=== PATIENT | male | born 1940 | race American Indian/Alaskan Native ===

== ENCOUNTER 2017-01-01 08:56 | Outpatient (CLI) | payer BC ==
--- NOTE | 2017-01-01 10:25 | Ultrasound Report ---
ULTRASOUND SCROTAL INDICATION: Scrotal pain. COMPARISON: 03/13/2014. FINDINGS: Longitudinal and transverse grayscale and color flow sonographic evaluation of the scrotum and its contents demonstrates normal testicular contour and echotexture bilaterally without suspicious intrinsic lesions. Preserved bilateral blood flow. Right testicle estimated at 3.4 x 1.3 x 2.8 cm while the left testicle is 4.3 x 1.6 x 3 cm. Right epididymis approximately 1.3 x 0.9 cm, image 16. Approximately 0.9 x 0.5 cm right epididymal head complex hypoechoic focus with diffuse intrinsic echoes now noted, image 17, morphologically different since the prior exam. Right epididymal body/tail also somewhat heterogeneous with mild increased blood flow as on image 20. No significant right hydrocele. Small left hydrocele noted, smaller since the prior exam. Left epididymal head is approximately 1 x 0.7 cm on image 34 with a 0.4 cm small cyst/spermatocele, image 35. CONCLUSION: 1. Small left hydrocele, lesser since February 2014, as described. No evidence of testicular torsion. 2. Mild right epididymitis not excluded. 3. Bilateral epididymal head cysts, complex on the right. Thank you for the opportunity to participate in this patient's care.
== END 2017-01-01 08:57 | disposition home or self-care (01) ==
LOC: US 08:56
PROVIDERS: ATTEND Urology
DX: N50.3 Cyst of epididymis (principal); N43.3 Hydrocele, unspecified; N45.1 Epididymitis
CPT/HCPCS: 93975

== ENCOUNTER 2017-02-14 11:49 | Day surgery (SDC) | payer BC ==
[2017-02-08 09:52] LABS: Basophils % (Auto) 1.5 % (0.0-1.8); Eosinophils % (Auto) 2.8 % (0.0-4.3); Hematocrit 36.5 % (35.5-45.6); Hemoglobin 11.9 gm/dl (11.8-15.2); Mean Corpuscular HGB Conc 33 % (32-34); Mean Corpuscular Hemoglobin 27 pg (28-32); Mean Corpuscular Volume 83 fl (84-94); Platelet Count 267 K/mm3 (140-440); Red Cell Distribution Width 15.4 % (13.2-15.2); White Blood Count 3.9 K/mm3 (4.5-11.0)
[2017-02-08 10:00] LABS: INR 1.62 (0.87-1.13)
--- NOTE | 2017-02-08 10:10 | Anesthesia Consultation ---
Anesthesia Consult and Med Hx Date of service: 02/08/17 - Airway Anesthetic Teeth Evaluation: Good ROM Head & Neck: Adequate Mental/Hyoid Distance: Adequate Mallampati Class: Class I Intubation Access Assessment: Good - Pulmonary Exam CTA: Yes - Cardiac Exam Cardiac Exam: RRR - Pre-Operative Health Status ASA Pre-Surgery Classification: ASA4 Proposed Anesthetic Plan: General - Pre-Anesthesia Comment Pre-Anesthesia Comments: MARCUS (10/31): Dilated cardiomyopathy. EJ 20-25%. Cardiac clearance (01/29). Patient has a pacemaker, Afib, sick sinus syndrome, conduction disorder-mobitz type 1 and intermittent high grade AV block - Pulmonary Hx Smoking: No Hx Asthma: No Hx Respiratory Symptoms: No SOB: No COPD: No Hx Pneumonia: No Hx Sleep Apnea: No (JR PRE SCREEN HIGH RISK) - Cardiovascular System Hx Hypertension: Yes (X 20 YRS) Hx Coronary Artery Disease: Yes Hx Heart Attack/AMI: No Hx Angina: No Hx Percutaneous Transluminal Coronary Angioplasty (PTCA): No Hx Cardia Arrhythmia: Yes (sick sinus syndrome; mobitz type 1 and intermittent high grade AV block, ) Hx Pacemaker: Yes (2011: ) Hx Internal Defibrillator: No Hx Valvular Heart Disease: Yes (MILD TO MOD. PULM HTN AND MR) Hx Heart Murmur: No Hx Peripheral Vascular Disease: No - Central Nervous System Hx Neuromuscular Disorder: No Hx Seizures: No CVA: Yes (2014- NO DEFICIT) Hx Back Pain: Yes (hx back surgery) Hx Psychiatric Problems: No - Gastrointestinal Hx Ulcer: No Hx Gastroesophageal Reflux Disease: No - Endocrine Hx Renal Disease: No Hx Liver Disease: No Hx Non-Insulin Dependent Diabetes: No - Hematic Hx Anemia: Yes Hx Sickle Cell Disease: No - Other Systems Hx Cancer: Yes (Prostate CA s/p prostatectomy; no chemo/rad) Hx Obesity: No - Additional Comments Anesthesia Medical History Comments: NAC
[2017-02-08 10:20] LABS: Alanine Aminotransferase 13 units/L (7-56); Albumin 3.9 g/dL (3.9-5); Albumin/Globulin Ratio 1.1 %; Alkaline Phosphatase 25 units/L (35-129); Anion Gap 18 mmol/L; BUN/Creatinine Ratio 19.16; Bilirubin,Total 0.9 mg/dL (0.1-1.2); Blood Urea Nitrogen 23 mg/dL (9-20); Calcium 8.7 mg/dL (8.4-10.2); Carbon Dioxide 23 mmol/L (22-30); Chloride 105.3 mmol/L (98-107); Glucose 104 mg/dL (75-100); Sodium 143 mmol/L (137-145); Total Protein 7.6 g/dL (6.3-8.2)
[2017-02-08 10:22] LABS: Potassium 2.9 mmol/L (3.6-5.0)
[2017-02-08 10:27] LABS: Partial Thromboplastin Time 60.1 Sec. (24.2-36.6)
[~2017-02-14 11:49] MED LIST: ANCEF/STERILE WATER 2 GM/20 ML 2 GM/20 ML SYRINGE IV NR; NACL 0.9% 1000 ML 1,000 ML IV SCH; PEPCID PO NR
[2017-02-14] MEDS ORDERED: SUBLIMAZE IV PRN (13:19)
[2017-02-14] MEDS ORDERED: ZOFRAN IV PRN (13:19)
[2017-02-14 13:27] LABS: INR 1.18 (0.87-1.13)
[2017-02-14] MEDS ORDERED: NACL 0.9% 1000 ML 1,000 ML IV SCH (14:00)
--- NOTE | 2017-02-14 14:06 | Admit Criteria Form ---
Admission Criteria Documentation: AMBULATORY SURGERY EXCEPTION CRITERIA Ambulatory Surgery Exception Criteria ( Place 'X' for any and all applicable criteria): Surgery or procedure performed on ambulatory basis may require inpatient stay for[A] ANY ONE of the following(1)(2)(3)(4)(5)(6)(7)(8)(9): [X] I. A preoperative situation, condition, or finding that warrants inpatient stay as indicated by ANY ONE of the following: [] a) Inpatient care needed because of severity of a disease or condition rather than the surgery (eg, severe cardiac or respiratory disease, severe infection) (15) (16 ) (17) (18) [] b) Emergent procedure (eg, angioplasty for acute ischemia)(19) [] c) Complex surgical approach or situation as indicated by ANY ONE of the following(3): [] i) Open approach needed instead of usual endoscopic, transcatheter, or other less invasive procedure [] ii) Difficult approach because of previous operation [] iii) Airway monitoring required after open neck procedures(20)(21) [] iv) Large mass requiring unusually extensive dissection [] v) Additional complicating feature requiring inpatient care (eg, drain management)(22(23): [X] d) Major surgery in a pt with high anesthetic risk as indicated by ANY ONE of the following (2)(3)(5)(7)(8): [X] i) ASA risk class III or higher (severe systemic disease impairing function) [D] [] ii) Advanced age (eg, older than 85 years)(14)(24) [] iii) Symptomatic heart failure(25) [] iv) Symptomatic asthma or COPD(8)(21) [] v) Morbid obesity with hemodynamic or respiratory problems(20)( 21)(26)(27) [] vi) Obstructive sleep apnea(20)(21) [] vii) Former premature infants who are younger than 60 weeks [] viii) High risk for severe postoperative abnormalities (eg, severe postoperative hypocalcemia after parathyroidectomy for severe hyperparathyroidism)(27)( 28) [] ix) Unstable angina(25) [] e) Drug-related risk requiring inpatient stay as indicated by ANY ONE of the following(5)(10)(14)(32)(33) [] i) Procedure requires discontinuing drugs or other therapy (eg , antiarrhythmic medication, antiseizure medication), which necessitates inpatient observation or treatment.(18)(31) [] ii) Major surgery and high risk drug use as indicated by ANY ONE of the following: [] 1) Active abuse of cocaine or similar drug [] 2) Monoamine oxidase inhibitor use [] 3) Other drug identified as posing risk [] f) Inadequate outpatient care situation as indicated by ANY ONE of the following(5)(10)(14)(32)(33) [] i) Patient lives remote from medical facility and procedure has urgent complication potential, and temporary nearby residence cannot be arranged [] ii) Patient will have postprocedure incapacitation and inadequate assistance at home, or alternative level of care cannot be arranged. [] iii) Patient will have long general anesthesia or procedure side effect resolution time, and competent person to stay with patient on first postoperative night at home or alternative level of care cannot be arranged. []iv) Other inadequate outpatient situation that cannot be handled by other means [] II. A perioperative event, condition, or finding that warrants inpatient stay as indicated by ANY ONE of the following (1)(2)(3): [] a) Inadequate physiologic recovery: cardiovascular, respiratory, or hemodynamic status not normal or near preoperative baseline(18) [] b) Hemodynamic instability [] c) Patient not alert with near normal or baseline mental status [] d) Temperature not normal or as expected and not appropriate for outpatient treatment of condition [] e) Ambulatory or appropriate activity level status not yet achieved post procedure [E](34)(35)(36) [] f) Operative site not appropriate (eg, unexpected or excessive drainage or bleeding) [] g) Postoperative effects not resolved or adequately managed (eg, significant pain or vomiting not appropriate for outpatient or next level of care)(10)(12) [] h) Complicating features requiring inpatient care as indicated by ANY ONE of the following(37): [] i) Severe complications of procedure (eg, bowel injury, airway compromise, vascular injury,severe hemorrhage) [] ii) Extensive (eg, dissection far beyond usual scope of procedure ) or prolonged (eg, 120 minutes beyond usual) surgery needed requiring inpatient postoperative care [] iii) Conversion to an open or complex procedure that requires inpatient care (eg, open vs laparoscopic cholecystectomy, abdominal vs vaginal hysterectomy)(38) [] iv) Comorbid condition or test result identified during or post procedure that requires inpatient care (7) [] v) Malignant hyperthermia(30) [] vi) Other complicating feature requiring inpatient care(22)(23) Inpatient stay may be needed until ALL of the following are present (1)(2)(3)(4) (5)(6)(10)(14)(33)(40): []a) Physiologic recovery: cardiovascular, respiratory, and hemodynamic status normal or near preoperative baseline []b) Hemodynamic stability []c) Patient alert, with near normal or baseline mental status []d) Temperature appropriate: patient afebrile or temperature appropriate for outpt treatment of condition []e) Activity level appropriate: ambulatory or appropriate activity level post procedure []f) Operative site appropriate as indicated by ALL of the following: []i) Site dry or with expected drainage []ii) Any blood noted is as expected for procedure. []g) Postoperative effects resolved or managed as indicated by ALL of the following: []i) Pain management appropriate for outpatient (or next level of) care(10) []ii) Minimal nausea and vomiting: if present, successfully treated with oral medication(12) []iii) Headache, dizziness, or drowsiness (if present) are mild. []h) Voiding status acceptable as indicated by ANY ONE of the following: []i) Voiding spontaneously []ii) No voiding but instructions given for follow-up in 6 to 8 hours []iii) Urinary catheter in place, and instructions given for follow-up []i) Complicating features requiring inpatient care manageable at a lower level of care(37) []j) Comorbid conditions manageable at a lower level of care(37) The original [employer] content created by [employer] has been revised. The portions of the content which have been revised are identified through the use of italic text or in bold, and [facility] [email or web address] has neither reviewed nor approved the modified material. All other unmodified content is copyright [employer]. Please see references footnoted in the original [employer] edition 2016 Admission Criteria Met: Yes
[2017-02-14] MEDS ORDERED: DIPRIVAN 10 MG/ML IV ONE (14:46)
[2017-02-14] MEDS ORDERED: AMIDATE IV ONE (14:46)
[2017-02-14] MEDS ORDERED: XYLOCAINE MPF 2% ONE (14:48)
[2017-02-14] MEDS ORDERED: SUBLIMAZE ONE (14:48)
[2017-02-14] MEDS ORDERED: DECADRON ONE (15:08)
[2017-02-14] MEDS ORDERED: ZOFRAN ONE ×2 (15:09)
[2017-02-14] MEDS ORDERED: WATER FOR IRRIG STERILE IR ONE ×2 (15:14)
--- NOTE | 2017-02-14 15:47 | Short Stay Summary ---
Short Stay Documentation Date of service: 02/14/17 - History H&P: obtained from office - Allergies and Medications Current Medications: Allergies No Known Allergies Allergy (Verified 03/13/14 06:35) Home Medications Medication Instructions Recorded Confirmed Last Taken Type Ezetimibe [Zetia] 10 mg PO DAILY #30 tablet 09/26/15 02/14/17 02/13/17 09:00 Rx Aspirin EC [Aspirin Enteric Coated 81 mg PO QDAY 06/21/16 02/14/17 02/07/17 09: 00 History TAB] Carvedilol [Coreg] 25 mg PO BID 06/21/16 02/14/17 02/14/17 07:00 History Losartan [Cozaar] 100 mg PO DAILY 06/21/16 02/14/17 02/14/17 08:00 History Mirabegron [Myrbetriq] 50 mg PO QDAY 06/21/16 02/14/17 02/13/17 09:00 History Dabigatran [Pradaxa] 150 mg PO BID 02/05/17 02/14/17 02/11/17 09:00 History Hydrochlorothiazide [HCTZ] 25 mg PO QDAY 02/05/17 02/14/17 02/13/17 09:00 History Nitrofurantoin Macrocrysta(Nf) 100 mg PO DAILY 02/05/17 02/14/17 02/13/17 09:00 History [Macrodantin CAP] Active Medications Famotidine (Pepcid) 20 mg PO PREOP NR Stop: 02/14/17 23:59 Last Admin: 02/14/17 12:55 Dose: 20 mg Fentanyl (Sublimaze) 50 mcg IV Q5MIN PRN PRN Reason: Pain , Severe (7-10) Stop: 02/14/17 23:59 Cefazolin Sodium (Ancef/Sterile Water 2 Gm/20 Ml) 2 gm in 20 mls @ 80 mls/hr IV PREOP NR PRN Reason: Protocol Stop: 02/14/17 23:01 Sodium Chloride (Nacl 0.9% 1000 Ml) 1,000 mls @ 42 mls/hr IV DIRECT PAGE - Brief post op/procedure progress note Date of procedure: 02/14/17 Pre-op diagnosis: dysuria Post-op diagnosis: other (mild urethral stricture) Procedure: flex cysto, urethral dilation, urethrogram Anesthesia: TORSTEN Surgeon: DIANA MCKAY Estimated blood loss: minimal Pathology: none Condition: stable - Hospital course Hospital course: [facility] & art on chart - Disposition Condition at discharge: Stable Disposition: DISCHARGED TO HOME OR SELFCARE Short Stay Discharge Plan Follow up with: DAMIR RAMAN MD [Primary Care Provider] - 7 Days
[2017-02-14] MEDS ORDERED: NORCO 5/325 PO PRN (17:05)
[2017-02-14] MEDS ORDERED: APRESOLINE ONE (17:12)
[2017-02-14] MEDS ORDERED: APRESOLINE IV PRN (17:25)
[2017-02-14 18:40] VITALS: BP 150/75
--- NOTE | 2017-02-14 19:33 | Operative Report ---
PREOPERATIVE DIAGNOSIS: Dysuria. POSTOPERATIVE DIAGNOSES: Mild urethral stricture mid shaft and bladder neck. PROCEDURE: Cystoscopy, urethrogram, urethral dilation 14-Brazilian. SURGEON: Ayo Leary MD ANESTHESIA: General. ESTIMATED BLOOD LOSS: Minimal. FLUIDS: Crystalloid. COMPLICATIONS: No complications. INDICATIONS: This 76-year-old gentleman with a history of prostate cancer status post radical prostatectomy also had an artificial urinary sphincter placed had to be removed due to erosion. The cuff is still in place. The patient had done well, but he continued to have some dysuria. He presents now for endoscopic evaluation. DESCRIPTION OF PROCEDURE: The patient was taken to the operative suite, placed in a supine position. After adequate general anesthesia placed in a dorsal lithotomy position, prepped and draped in a sterile fashion. A cystourethroscopy was performed using a 16-Brazilian flexible ureteroscope was noted to have a stricture at the level of the cuff. No obvious expose cuff could be appreciated. 0.035 wire was placed dilation to 16-Brazilian with a balloon dilator. Flexible ureteroscopy and cystoscopy was performed. No stones, no tumors could be appreciated. He also had a small stricture at the bladder neck as well. No exposed components of the sphincter could be appreciated. His bladder was drained. Rectal exam was benign. He was extubated and taken to recovery room. [facility] [place] and follow up in the office. He can resume his blood thinners in two days. JOB# [id number] [facility]
--- NOTE | 2017-02-15 12:11 | Fluoroscopy Report ---
FLUOROSCOPY RETROGRADE URETHROGRAM History: Nocturia. Findings: 6 fluoroscopic images were captured during retrograde urethrogram by Dr. Leary. The images are limited but there appears to be a high-grade stricture in the mid urethra with mild dilatation of the proximal urethra. No extravasation is confidently identified. Please correlate with the procedural report by Dr. Leary. Impression: Urethral stricture.
== END 2017-02-14 18:25 | disposition home or self-care (01) ==
LOC: OR 11:49
PROVIDERS: ATTEND Urology
DX: N35.8 Other urethral stricture (principal); N32.0 Bladder-neck obstruction; I10 Essential (primary) hypertension; I25.10 Atherosclerotic heart disease of native coronary artery without angina pectoris; I27.2 Other secondary pulmonary hypertension; E78.5 Hyperlipidemia, unspecified; D64.9 Anemia, unspecified; Z95.0 Presence of cardiac pacemaker; Z85.46 Personal history of malignant neoplasm of prostate; Z90.79 Acquired absence of other genital organ(s); Z86.73 Personal history of transient ischemic attack (TIA), and cerebral infarction without residual deficits; Z72.89 Other problems related to lifestyle; Z79.01 Long term (current) use of anticoagulants; Z82.49 Family history of ischemic heart disease and other diseases of the circulatory system
CPT/HCPCS: 36415; 52281; 74450; 80053; 84132; 85025; 85610; 85730; A4217; C1726; C1769; J0360; J0690; J1100; J2405; J2704; J3010; J7030; Q9967

== ENCOUNTER 2017-04-16 09:42 | Outpatient (CLI) | payer BC | END 2017-04-16 09:43 | disposition home or self-care (01) | LOC: ECHO 09:42 | PROVIDERS: ATTEND Internal Medicine Cardiovascular Disease | DX: I08.3 Combined rheumatic disorders of mitral, aortic and tricuspid valves (principal); I42.0 Dilated cardiomyopathy; I27.2 Other secondary pulmonary hypertension; I48.91 Unspecified atrial fibrillation; I10 Essential (primary) hypertension; I25.10 Atherosclerotic heart disease of native coronary artery without angina pectoris; E78.00 Pure hypercholesterolemia, unspecified; D64.9 Anemia, unspecified; Z95.0 Presence of cardiac pacemaker | CPT/HCPCS: 93306 ==

== ENCOUNTER 2017-08-03 10:05 | Day surgery (SDC) | payer BC, MEDICARE ==
--- NOTE | 2017-08-02 10:13 | Anesthesia Consultation ---
Anesthesia Consult and Med Hx Date of service: 08/02/17 - Airway ROM Head & Neck: Adequate Mental/Hyoid Distance: Adequate Mallampati Class: Class II Intubation Access Assessment: Probably Good - Pulmonary Exam CTA: Yes - Cardiac Exam Cardiac Exam: RRR - Pre-Operative Health Status ASA Pre-Surgery Classification: ASA3 Proposed Anesthetic Plan: General - Pulmonary Hx Smoking: No Hx Respiratory Symptoms: No Hx Sleep Apnea: No (JR PRE SCREEN HIGH RISK) - Cardiovascular System Hx Hypertension: Yes (X 20 YRS, EF 20%) Hx Coronary Artery Disease: Yes (small vessel) Hx Cardia Arrhythmia: Yes (sick sinus syndrome; paroxysmal AFIB) Hx Pacemaker: Yes (2011: ) Hx Valvular Heart Disease: Yes (MILD TO MOD. PULM HTN AND MR) Hx Heart Murmur: No Hx Peripheral Vascular Disease: No - Central Nervous System Hx Neuromuscular Disorder: No CVA: Yes (2014- NO DEFICIT) Hx Back Pain: Yes Hx Psychiatric Problems: No - Gastrointestinal Hx Ulcer: No Hx Gastroesophageal Reflux Disease: No - Endocrine Hx Renal Disease: No Hx Liver Disease: No Hx Non-Insulin Dependent Diabetes: No - Hematic Hx Anemia: Yes - Other Systems Hx Cancer: Yes (Prostate CA s/p prostatectomy; no chemo/rad) Hx Obesity: No
[2017-08-02 10:19] LABS: Basophils % (Auto) 0.8 % (0.0-1.8); Hematocrit 37.1 % (35.5-45.6); Hemoglobin 12.2 gm/dl (11.8-15.2); Mean Corpuscular HGB Conc 33 % (32-34); Mean Corpuscular Hemoglobin 27 pg (28-32); Mean Corpuscular Volume 82 fl (84-94); Platelet Count 231 K/mm3 (140-440); Red Blood Count 4.55 M/mm3 (3.65-5.03); Red Cell Distribution Width 18.1 % (13.2-15.2); White Blood Count 5.4 K/mm3 (4.5-11.0)
[2017-08-02 10:29] LABS: INR 1.13 (0.87-1.13)
[2017-08-02 10:30] LABS: Partial Thromboplastin Time 34.3 Sec. (24.2-36.6)
[2017-08-02 10:36] LABS: Alanine Aminotransferase 13 units/L (7-56); Albumin 3.9 g/dL (3.9-5); Albumin/Globulin Ratio 1.1 %; Alkaline Phosphatase 24 units/L (35-129); Anion Gap 15 mmol/L; BUN/Creatinine Ratio 21; Blood Urea Nitrogen 19 mg/dL (9-20); Carbon Dioxide 27 mmol/L (22-30); Chloride 100.2 mmol/L (98-107); Glucose 114 mg/dL (75-100); Potassium 3.4 mmol/L (3.6-5.0); Sodium 139 mmol/L (137-145); Total Protein 7.4 g/dL (6.3-8.2)
[~2017-08-03 10:05] MED LIST changes: -ANCEF/STERILE WATER 2 GM/20 ML 2 GM/20 ML SYRINGE IV NR; +ANCEF/STERILE WATER 2 GM/20 ML IV NR; +GARAMYCIN/NS 80 MG/100 ML 100 ML IV SCH; +VERSED IV NR
[2017-08-03] MEDS ORDERED: NEOSPORIN GU IR ONE ×2 (10:58→12:40)
[2017-08-03] MEDS ORDERED: XYLOCAINE MPF 2% ONE (11:07)
[2017-08-03] MEDS ORDERED: DIPRIVAN 10 MG/ML IV ONE (11:07)
[2017-08-03] MEDS ORDERED: SUBLIMAZE ONE (11:07)
--- NOTE | 2017-08-03 11:49 | Anesthesia Day of Surgery ---
Anesthesia Day of Surgery - Day of Surgery Patient Examined: Yes Patient H&P Reviewed: Yes Patient is NPO: Yes Beta Blockers: Yes
[2017-08-03] MEDS ORDERED: AMIDATE IV ONE (12:07)
[2017-08-03] MEDS ORDERED: NEO SYNEPHRINE ONE (12:33)
[2017-08-03] MEDS ORDERED: NACL 0.9% 100 ML ONE (12:33)
[2017-08-03] MEDS ORDERED: ePHEDrine SULFATE ONE (12:45)
--- NOTE | 2017-08-03 13:08 | Short Stay Summary ---
Short Stay Documentation Date of service: 08/03/17 - History H&P: obtained from office - Allergies and Medications Current Medications: Allergies No Known Allergies Allergy (Verified 03/13/14 06:35) Home Medications Medication Instructions Recorded Confirmed Last Taken Type Ezetimibe [Zetia] 10 mg PO DAILY #30 tablet 09/26/15 08/03/17 08/02/17 18:00 Rx Aspirin EC [Aspirin Enteric Coated 81 mg PO QDAY 06/21/16 08/03/17 07/30/17 08: 00 History TAB] Carvedilol [Coreg] 25 mg PO BID 06/21/16 08/03/17 08/02/17 19:00 History Losartan [Cozaar] 100 mg PO DAILY 06/21/16 08/03/17 08/03/17 07:15 History Mirabegron [Myrbetriq] 50 mg PO QDAY 06/21/16 08/03/17 08/02/17 08:00 History Dabigatran [Pradaxa] 150 mg PO BID 02/05/17 08/03/17 07/30/17 08:00 History HCTZ 25 mg PO DAILY 08/03/17 08/03/17 08/02/17 08:00 History amLODIPine 5 mg PO DAILY 08/03/17 08/03/17 08/03/17 07:15 History Active Medications Cefazolin Sodium (Ancef/Sterile Water 2 Gm/20 Ml) 2 gm IV PREOP NR Stop: 08/03/17 23:59 Famotidine (Pepcid) 20 mg PO PREOP NR Stop: 08/03/17 21:00 Last Admin: 08/03/17 10:53 Dose: 20 mg Gentamicin Sulfate/Sodium Chloride (Garamycin/Ns 80 Mg/100 Ml) 100 mls @ 200 mls/hr IV PREOP PAGE Sodium Chloride (Nacl 0.9% 1000 Ml) 1,000 mls @ 100 mls/hr IV DIRECT PAGE Last Admin: 08/03/17 10:54 Dose: 100 mls/hr Midazolam HCl (Versed) 1 mg IV PREOP NR Stop: 08/03/17 21:00 Last Admin: 08/03/17 10:54 Dose: 1 mg - Brief post op/procedure progress note Date of procedure: 08/03/17 Pre-op diagnosis: aus erosion Post-op diagnosis: same Procedure: cysto urethral dilation, removal of foreign body (tubing) Anesthesia: GETA Surgeon: DIANA MCKAY Estimated blood loss: minimal Pathology: none Condition: stable - Hospital course Hospital course: cipro & norco - Disposition Condition at discharge: Stable Disposition: DC-01 TO HOME OR SELFCARE Short Stay Discharge Plan Follow up with: DAMIR RAMAN MD [Primary Care Provider] - 7 Days
[2017-08-03] MEDS ORDERED: ZOFRAN ONE (13:09)
[2017-08-03] MEDS ORDERED: DILAUDID IV PRN (13:54)
[2017-08-03] MEDS: DILAUDID IV PRN ×4 (14:00→14:34)
[2017-08-03 15:19] VITALS: BP 143/79
--- NOTE | 2017-08-03 17:07 | Operative Report ---
PREOPERATIVE DIAGNOSIS: Malfunctioning artificial urinary sphincter (erosion of tubing) POSTOPERATIVE DIAGNOSES: Malfunctioning artificial urinary sphincter (erosion of tubing), urethral stricture. PROCEDURE: Cystoscopy, urethral dilatation, Gan catheter placement. Scrotal exploration, removal of foreign body (tubing). SURGEON: Ayo Leary MD ANESTHESIA: General. ESTIMATED BLOOD LOSS: Minimal. FLUIDS: Crystalloid. COMPLICATIONS: No complications. INDICATIONS: This patient is a 77-year-old gentleman known to my service with prostate cancer, urinary incontinence, an artificial sphincter placed in the past, did well, but failed replacement was inserted and developed erosions, requiring removal. At this point, he has the reservoir and the cuff. The pump was removed due to the previous erosion. The tubing was capped. He was seen in the office earlier this day with exposed tubing and presents now for removal procedure. The patient understands may not remove all of the device due to dense scar tissue and possible worsening of symptoms. DESCRIPTION OF PROCEDURE: The patient was taken to the operative suite, placed in a supine position. After adequate general anesthesia, he was placed in a dorsal lithotomy position, prepped and draped in a sterile fashion. Flexible cystoscopy was performed. It was noted to have a small stricture, which was dilated with a 16-Finnish and Gan catheter was placed. Cystoscopy into the bladder, no tumors or stones were noted. Median rhaphe scrotal incision was made. The tubing was just to the left of the midline, attracted as proximal as possible, did not see any of the other components. However, there was some dense scar tissue, cut the tubing, no signs of infection was noted; however, anaerobic and aerobic culture was obtained. Copious irrigation was performed. Adequate hemostasis achieved, two layer closure was performed using a 2-0 Vicryl in the subcutaneous tissue in a running fashion, 2-0 Vicryl in interrupted fashion. Fluffs and scrotal support was placed. He was extubated and taken to recovery room. He will go home on [employer] and [place]. JOB# [id number] [facility]
== END 2017-08-03 15:40 | disposition home or self-care (01) ==
LOC: OR 10:05
PROVIDERS: ATTEND Urology
DX: T83.191A Other mechanical complication of implanted urinary sphincter, initial encounter (principal); Y83.8 Other surgical procedures as the cause of abnormal reaction of the patient, or of later complication, without mention of misadventure at the time of the procedure; N35.9 Urethral stricture, unspecified; I10 Essential (primary) hypertension; E78.5 Hyperlipidemia, unspecified; Z85.46 Personal history of malignant neoplasm of prostate; I25.10 Atherosclerotic heart disease of native coronary artery without angina pectoris
CPT/HCPCS: 36415; 52315; 80053; 85025; 85610; 85730; 87075; 87116; 88300; C1726; J0690; J1170; J1580; J2250; J2370; J2405; J2704; J3010; J7030; 88302

== ENCOUNTER 2018-05-31 19:22 | Emergency (ER) | payer MEDICARE ==
[2018-05-31 19:34] VITALS: BP 199/106
[2018-05-31 19:59] LABS: Basophils % (Auto) 0.7 % (0.0-1.8); Eosinophils % (Auto) 0.6 % (0.0-4.3); Hematocrit 39.4 % (35.5-45.6); Hemoglobin 12.7 gm/dl (11.8-15.2); Lymphocytes # (Auto) 1.3 K/mm3 (1.2-5.4); Lymphocytes % (Auto) 18.5 % (13.4-35.0); Mean Corpuscular HGB Conc 32 % (32-34); Mean Corpuscular Hemoglobin 26 pg (28-32); Mean Corpuscular Volume 81 fl (84-94); Monocytes # (Auto) 0.8 K/mm3 (0.0-0.8); Monocytes % (Auto) 11.3 % (0.0-7.3); Platelet Count 297 K/mm3 (140-440); Red Blood Count 4.86 M/mm3 (3.65-5.03); Red Cell Distribution Width 17.2 % (13.2-15.2)
[2018-05-31 20:08] LABS: INR 1.16 (0.87-1.13)
[2018-05-31 20:09] LABS: Partial Thromboplastin Time 30.1 Sec. (24.2-36.6)
[2018-05-31 20:26] LABS: Alanine Aminotransferase 26 units/L (7-56); Albumin 3.7 g/dL (3.9-5); BUN/Creatinine Ratio 14; Blood Urea Nitrogen 18 mg/dL (9-20); Calcium 9.2 mg/dL (8.4-10.2); Hemolysis Index 3
--- NOTE | 2018-05-31 20:41 | Emergency Department Report ---
ED General Adult HPI - General Chief complaint: Abdominal Pain Stated complaint: BLEEDING/BLADDER Time Seen by Provider: 05/31/18 20:26 Source: patient, RN notes reviewed, old records reviewed Mode of arrival: Ambulatory Limitations: No Limitations - History of Present Illness Initial comments: Primary care DrOlman: Radha Cardiology: Almita Casillas Urology: Anthony Leary Past medical history: Hypertension, high cholesterol, paroxysmal atrial fibrillation, currently on eliquis, bladder neck stricture This is a 77-year-old gentleman. The patient had a suprapubic Gan catheter placed earlier on today at around 4:00 PM for inability to urinate. This was done by his private aforementioned urology specialist. The patient reports that his urologist attempted to pass a Gan catheter through the urethra but was unsuccessful. The suprapubic Gan catheter was placed initially without complication. However, the patient indicates that he took his anticoagulants at this morning along with aspirin. He presents to the ER with bleeding around the suprapubic Gan catheter site. It is mildly crampy and does not radiate anywhere. He denies headache, neck pain, chest pain, upper abdominal pain, testicular pain. He denies fevers and chills as well as hematemesis, bright red blood per rectum. -: Gradual Location: pelvis Radiation: non-radiation Quality: aching Consistency: constant Improves with: none, other (bleeding decreases with gentle application of direct digital pressure) Worsens with: none Associated Symptoms: denies other symptoms - Related Data Home Medications Medication Instructions Recorded Confirmed Last Taken Aspirin EC [Aspirin Enteric Coated 81 mg PO QDAY 06/21/16 08/03/17 07/30/17 08: 00 TAB] Carvedilol [Coreg] 25 mg PO BID 06/21/16 08/03/17 08/02/17 19:00 Losartan [Cozaar] 100 mg PO DAILY 06/21/16 08/03/17 08/03/17 07:15 Mirabegron [Myrbetriq] 50 mg PO QDAY 06/21/16 08/03/17 08/02/17 08:00 Dabigatran [Pradaxa] 150 mg PO BID 02/05/17 08/03/17 07/30/17 08:00 HCTZ 25 mg PO DAILY 08/03/17 08/03/17 08/02/17 08:00 amLODIPine 5 mg PO DAILY 08/03/17 08/03/17 08/03/17 07:15 Previous Rx's Medication Instructions Recorded Last Taken Type Ezetimibe [Zetia] 10 mg PO DAILY #30 tablet 09/26/15 08/02/17 18:00 Rx Allergies Allergy/AdvReac Type Severity Reaction Status Date / Time No Known Allergies Allergy Verified 03/13/14 06:35 ED Review of Systems ROS: Stated complaint: BLEEDING/BLADDER Other details as noted in HPI Constitutional: denies: fever Eyes: denies: eye discharge ENT: denies: epistaxis Respiratory: denies: cough Cardiovascular: denies: chest pain Gastrointestinal: denies: vomiting Genitourinary: as per HPI Musculoskeletal: denies: back pain Skin: denies: lesions Neurological: denies: weakness Psychiatric: anxiety ED Past Medical Hx - Past Medical History Previous Medical History?: Yes Hx Hypertension: Yes (X 20 YRS, EF 20%) Hx Diabetes: No Hx Deep Vein Thrombosis: No Hx Liver Disease: No Hx Renal Disease: No Hx Arthritis: Yes Hx Kidney Stones: No Hx HIV: No Additional medical history: pacemaker - Surgical History Past Surgical History?: Yes Hx Pacemaker: Yes (2012: ) Additional Surgical History: prostate - Social History Smoking Status: Never Smoker Substance Use Type: None - Medications Home Medications: Home Medications Medication Instructions Recorded Confirmed Last Taken Type Ezetimibe [Zetia] 10 mg PO DAILY #30 tablet 09/26/15 08/03/17 08/02/17 18:00 Rx Aspirin EC [Aspirin Enteric Coated 81 mg PO QDAY 06/21/16 08/03/17 07/30/17 08: 00 History TAB] Carvedilol [Coreg] 25 mg PO BID 06/21/16 08/03/17 08/02/17 19:00 History Losartan [Cozaar] 100 mg PO DAILY 06/21/16 08/03/17 08/03/17 07:15 History Mirabegron [Myrbetriq] 50 mg PO QDAY 06/21/16 08/03/17 08/02/17 08:00 History Dabigatran [Pradaxa] 150 mg PO BID 02/05/17 08/03/17 07/30/17 08:00 History HCTZ 25 mg PO DAILY 08/03/17 08/03/17 08/02/17 08:00 History amLODIPine 5 mg PO DAILY 08/03/17 08/03/17 08/03/17 07:15 History ED Physical Exam - General Limitations: No Limitations General appearance: alert, in no apparent distress - Head Head exam: Present: atraumatic, normocephalic - Eye Eye exam: Present: normal appearance, EOMI. Absent: nystagmus - ENT ENT exam: Present: normal exam, normal orophraynx, mucous membranes moist, normal external ear exam - Neck Neck exam: Present: normal inspection, full ROM - Respiratory Respiratory exam: Present: normal lung sounds bilaterally. Absent: respiratory distress - Cardiovascular Cardiovascular Exam: Present: regular rate, normal rhythm, normal heart sounds. Absent: bradycardia, tachycardia, irregular rhythm, systolic murmur, diastolic murmur, rubs, gallop - GI/Abdominal GI/Abdominal exam: Present: soft, other (there is a suprapubic Gan catheter in place. It is draining bloody yellow urine. Around the suprapubic stoma, there is scant oozing noted.). Absent: distended, tenderness, guarding, rebound , rigid, pulsatile mass - Rectal Rectal exam: Present: deferred - Extremities Exam Extremities exam: Present: normal inspection, full ROM, other (2+ pulses noted in the bilateral upper, lower extremities. Compartments soft. No long bony tenderness. The pelvis is stable.). Absent: tenderness, pedal edema, calf tenderness - Back Exam Back exam: Present: normal inspection, full ROM. Absent: tenderness, CVA tenderness (R), paraspinal tenderness, vertebral tenderness - Neurological Exam Neurological exam: Present: alert, oriented X3, CN II-XII intact, other ( Extraocular movements intact. Tongue midline. No facial droop. Facial sensation intact to light touch in the V1, V2, V3 distribution bilaterally. 5 and 5 strength in 4 extremities.. Sensation is intact to light touch in 4 extremities.). Absent: motor sensory deficit - Psychiatric Psychiatric exam: Present: anxious - Skin Skin exam: Present: warm, dry, intact, normal color. Absent: rash ED Course Vital Signs 05/31/18 19:30 Temperature 97.8 F Pulse Rate 64 Respiratory 17 Rate Blood Pressure 199/106 O2 Sat by Pulse 100 Oximetry ED Medical Decision Making - Lab Data Result diagrams: 05/31/18 19:36 05/31/18 19:36 Vital Signs 05/31/18 19:30 Temperature 97.8 F Pulse Rate 64 Respiratory 17 Rate Blood Pressure 199/106 O2 Sat by Pulse 100 Oximetry Lab Results 05/31/18 05/31/18 05/31/18 Range/Units 19:36 19:36 19:40 WBC 6.9 (4.5-11.0) K/mm3 RBC 4.86 (3.65-5.03) M/mm3 Hgb 12.7 (11.8-15.2) gm/dl Hct 39.4 (35.5-45.6) % MCV 81 L (84-94) fl MCH 26 L (28-32) pg MCHC 32 (32-34) % RDW 17.2 H (13.2-15.2) % Plt Count 297 (140-440) K/mm3 Lymph % (Auto) 18.5 (13.4-35.0) % Elbert % (Auto) 11.3 H (0.0-7.3) % Eos % (Auto) 0.6 (0.0-4.3) % Baso % (Auto) 0.7 (0.0-1.8) % Lymph # 1.3 (1.2-5.4) K/mm3 Elbert # 0.8 (0.0-0.8) K/mm3 Eos # 0.0 (0.0-0.4) K/mm3 Baso # 0.0 (0.0-0.1) K/mm3 Seg Neutrophils % 68.9 (40.0-70.0) % Seg Neutrophils # 4.8 (1.8-7.7) K/mm3 PT 15.4 H (12.2-14.9) Sec. INR 1.16 H (0.87-1.13) APTT 30.1 (24.2-36.6) Sec. Sodium 135 L (137-145) mmol/L Potassium 3.7 (3.6-5.0) mmol/L Chloride 97.0 L (98-107) mmol/L Carbon Dioxide 24 (22-30) mmol/L Anion Gap 18 mmol/L BUN 18 (9-20) mg/dL Creatinine 1.3 (0.8-1.5) mg/dL Estimated GFR > 60 ml/min BUN/Creatinine Ratio 14 % Glucose 114 H (75-100) mg/dL Calcium 9.2 (8.4-10.2) mg/dL Total Bilirubin 0.70 (0.1-1.2) mg/dL AST 29 (5-40) units/L ALT 26 (7-56) units/L Alkaline Phosphatase 33 L (35-129) units/L Total Protein 7.3 (6.3-8.2) g/dL Albumin 3.7 L (3.9-5) g/dL Albumin/Globulin Ratio 1.0 % - Medical Decision Making Differential diagnosis, including but not limited to: Bleeding secondary to suprapubic Gan catheter placement and simultaneous anticoagulant use Assessment and plan: 77-year-old gentleman on systemic anticoagulation who is oozing from a suprapubic Gan catheter site. He is afebrile with reassuring vital signs with the exception of elevated blood pressure. The patient as per review of his old medical records and by his own recollection is on a few antihypertensive medications. He does not require emergent intervention for his asymptomatic elevated blood pressure. Please reference the [employer] clinical policy on hypertension that is not symptomatic. The patient is counseled to discontinue anticoagulant use for the next 48 hours. He understands that he is at low theoretical risk for CVA. This intervention is most likely to help decrease his oozing. We have come to this decision together through shared decision making. I have also discussed this with the covering primary urologist, Dr. Oropeza, who agrees with this plan of care. Patient will also apply gentle digital direct pressure to the site, and he is given gauzes and sponges to help keep himself clean. He indicates he is reliable to follow-up on Sunday for repeat checkup/evaluation. He is accompanied by family who are also amenable to this plan. Return precautions are reviewed. Critical care attestation.: If time is entered above; I have spent that time in minutes in the direct care of this critically ill patient, excluding procedure time. ED Disposition Clinical Impression: Encounter for care or replacement of suprapubic tube Anticoagulant adverse reaction Qualifiers: Encounter type: initial encounter Qualified Code(s): T45.515A - Adverse effect of anticoagulants, initial encounter Disposition: TO HOME OR SELFCARE Is pt being admited?: No Does the pt Need Aspirin: No Condition: Stable Instructions: Postoperative Bleeding (ED), Urinary Leg Bag (GEN), Gan Catheter Placement and Care (ED) Additional Instructions: Hold aspirin and eliquis for the next 48 hours. Follow up with your urology specialist first thing Sunday morning for repeat checkup/evaluation to have the suprapubic Gan catheter reevaluated. Scant bleeding would be expected given use of eliquis. Applied gentle direct digital pressure to the bleeding. Continue other outpatient medications. Return to the emergency room right away with new pain, worsened pain, migration of pain, bleeding increases in rate, vomiting blood, defecating blood, obstruction of the suprapubic Gan catheter. Referrals: PRIMARY CARE, [Primary Care Provider] - 3-5 Days DIANA LEARY MD [Staff Physician] - 3-5 Days JAIME CASILLAS MD [Staff Physician] - 3-5 Days
== END 2018-05-31 21:51 | disposition home or self-care (01) ==
LOC: ED 19:22
DX: T83.83XA Hemorrhage due to genitourinary prosthetic devices, implants and grafts, initial encounter (principal); T45.515A Adverse effect of anticoagulants, initial encounter; I10 Essential (primary) hypertension; M19.90 Unspecified osteoarthritis, unspecified site; Z95.0 Presence of cardiac pacemaker; X58.XXXA Exposure to other specified factors, initial encounter; Y93.89 Activity, other specified; Y92.89 Other specified places as the place of occurrence of the external cause; Y99.8 Other external cause status
CPT/HCPCS: 36415; 80053; 85025; 85610; 85730; 86850; 86900; 86901

== ENCOUNTER 2018-05-31 23:27 | Inpatient (IN) | payer MEDICARE ==
[2018-06-01] MEDS ORDERED: NACL 0.9% 1000 ML 1,000 ML IV ONE (00:03)
--- NOTE | 2018-06-01 00:04 | Emergency Department Report ---
ED General Adult HPI - General Chief complaint: Syncope Stated complaint: WEAKNESS Time Seen by Provider: 06/01/18 00:02 Source: patient, family, EMS (ems notes not available at time of chart dictation), RN notes reviewed, old records reviewed Mode of arrival: Wheelchair Limitations: No Limitations - History of Present Illness Initial comments: This is a 77-year-old gentleman. Please reference my note from earlier on today for more complete details regarding his past medical history. Patient was seen in the ER earlier on today for bleeding suprapubic catheter that was otherwise not symptomatic. Patient reports when he went home, he was driving a bath, and felt like he passed out. As per his family, he's passed out 3 times today. His family member reports that after his first episode of syncope, he was on all fours, dry heaving, and then rolled over onto his side. The patient has no recollection of this event. There was apparently no convulsive event. Family member also reports that patient was unresponsive in a wheelchair with EMS. The patient denies headache, neck pain, chest pain. He denies upper abdominal pain. He reports feeling a little bit sore and his suprapubic Gan catheter insertion site. He denies hematemesis, bright red blood per rectum, he reports that the oozing in his suprapubic Gan catheter hasn't really changed, and he denies DVT, pulmonary embolus risk factors. Apparently, since being discharged earlier on today, the patient has syncopized 3 times. -: Sudden Radiation: non-radiation Consistency: now resolved Improves with: none Worsens with: none Associated Symptoms: malaise, nausea/vomiting, syncope, weakness. denies: confusion, chest pain, cough, diaphoresis, fever/chills, headaches, loss of appetite, rash, seizure, shortness of breath - Related Data Home Medications Medication Instructions Recorded Confirmed Last Taken Aspirin EC [Aspirin Enteric Coated 81 mg PO QDAY 06/21/16 08/03/17 07/30/17 08: 00 TAB] Carvedilol [Coreg] 25 mg PO BID 06/21/16 08/03/17 08/02/17 19:00 Losartan [Cozaar] 100 mg PO DAILY 06/21/16 08/03/17 08/03/17 07:15 Mirabegron [Myrbetriq] 50 mg PO QDAY 06/21/16 08/03/17 08/02/17 08:00 Dabigatran [Pradaxa] 150 mg PO BID 02/05/17 08/03/17 07/30/17 08:00 HCTZ 25 mg PO DAILY 08/03/17 08/03/17 08/02/17 08:00 amLODIPine 5 mg PO DAILY 08/03/17 08/03/17 08/03/17 07:15 Previous Rx's Medication Instructions Recorded Last Taken Type Ezetimibe [Zetia] 10 mg PO DAILY #30 tablet 09/26/15 08/02/17 18:00 Rx Allergies Allergy/AdvReac Type Severity Reaction Status Date / Time No Known Allergies Allergy Verified 03/13/14 06:35 ED Review of Systems ROS: Stated complaint: WEAKNESS Other details as noted in HPI Comment: All other systems reviewed and negative ED Past Medical Hx - Past Medical History Previous Medical History?: Yes Hx Hypertension: Yes (X 20 YRS, EF 20%) Hx Diabetes: No Hx Deep Vein Thrombosis: No Hx Liver Disease: No Hx Renal Disease: No Hx Arthritis: Yes Hx Kidney Stones: No Hx HIV: No Additional medical history: pacemaker - Surgical History Past Surgical History?: Yes Hx Pacemaker: Yes (2012: ) Additional Surgical History: prostate - Social History Smoking Status: Never Smoker Substance Use Type: None - Medications Home Medications: Home Medications Medication Instructions Recorded Confirmed Last Taken Type Ezetimibe [Zetia] 10 mg PO DAILY #30 tablet 09/26/15 08/03/17 08/02/17 18:00 Rx Aspirin EC [Aspirin Enteric Coated 81 mg PO QDAY 06/21/16 08/03/17 07/30/17 08: 00 History TAB] Carvedilol [Coreg] 25 mg PO BID 06/21/16 08/03/17 08/02/17 19:00 History Losartan [Cozaar] 100 mg PO DAILY 06/21/16 08/03/17 08/03/17 07:15 History Mirabegron [Myrbetriq] 50 mg PO QDAY 06/21/16 08/03/17 08/02/17 08:00 History Dabigatran [Pradaxa] 150 mg PO BID 02/05/17 08/03/17 07/30/17 08:00 History HCTZ 25 mg PO DAILY 08/03/17 08/03/17 08/02/17 08:00 History amLODIPine 5 mg PO DAILY 08/03/17 08/03/17 08/03/17 07:15 History ED Physical Exam - General Limitations: No Limitations General appearance: alert, in no apparent distress - Head Head exam: Present: atraumatic, normocephalic - Eye Eye exam: Present: normal appearance, EOMI. Absent: nystagmus - ENT ENT exam: Present: normal exam, normal orophraynx, mucous membranes moist, normal external ear exam - Neck Neck exam: Present: normal inspection, full ROM - Respiratory Respiratory exam: Present: normal lung sounds bilaterally. Absent: respiratory distress - Cardiovascular Cardiovascular Exam: Present: regular rate, normal rhythm, normal heart sounds. Absent: bradycardia, tachycardia, irregular rhythm, systolic murmur, diastolic murmur, rubs, gallop - GI/Abdominal GI/Abdominal exam: Present: soft, other (suprapubic Gan catheter in place, continues to drain bloody urine). Absent: distended, tenderness, guarding, rebound, rigid, pulsatile mass - Rectal Rectal exam: Present: deferred - Extremities Exam Extremities exam: Present: normal inspection, full ROM, normal capillary refill , other (2+ pulses noted in the bilateral upper, lower extremities. Compartments soft. No long bony tenderness. The pelvis is stable.). Absent: tenderness, pedal edema, joint swelling, calf tenderness - Back Exam Back exam: Present: normal inspection, full ROM. Absent: tenderness, CVA tenderness (R), paraspinal tenderness, vertebral tenderness - Neurological Exam Neurological exam: Present: alert, oriented X3, CN II-XII intact, other ( Extraocular movements intact. Tongue midline. No facial droop. Facial sensation intact to light touch in the V1, V2, V3 distribution bilaterally. 5 and 5 strength in 4 extremities.. Sensation is intact to light touch in 4 extremities.). Absent: motor sensory deficit - Psychiatric Psychiatric exam: Present: anxious - Skin Skin exam: Present: warm, dry, intact, normal color. Absent: rash ED Course Vital Signs 05/31/18 06/01/18 23:55 01:49 Temperature 97.7 F Pulse Rate 65 64 Respiratory 18 Rate Blood Pressure 89/55 Blood Pressure 161/78 [Right] O2 Sat by Pulse 99 99 Oximetry - Reevaluation(s) Reevaluation #1: 06/01/18 03:22 CT scan of the brain is negative. CT scan of abdomen and pelvis demonstrates postsurgical changes, and nonspecific inflammatory changes in the large intestine. Does not have diarrhea, or other symptoms to suggest diverticulitis. No retroperitoneal hematoma is related to elevated lactic acid initially is appreciated, and this cleared with 1 L of IV fluid. Case is presented to the Hospital physician, Dr. Jennings, he accepted the patient to the medical service. ED Medical Decision Making - Lab Data Result diagrams: 06/01/18 00:27 06/01/18 00:27 Vital Signs - 24 hr 05/31/18 23:55 Temperature 97.7 F Pulse Rate 65 Blood Pressure 89/55 O2 Sat by Pulse 99 Oximetry - EKG Data 06/01/18 00:34 Ventricular paced rhythm, 64 bpm, left axis deviation, good capture, QTC prolonged, not a STEMI. Motion Artifact noted. - Radiology Data Radiology results: pending, report reviewed, image reviewed - Medical Decision Making Differential diagnosis, including but not limited to: Orthostasis, vasovagal event, retroperitoneal hematoma, acute coronary syndrome, structural cardiac disease Assessment and plan: 77-year-old male with 3 episodes of syncope. Patient had no complaint of dizziness or near syncope or chest pain during his previous ER visit earlier on today. He is clinically sober at this time, with a GCS of 15, and an NIH score of 0. Leading diagnosis is orthostasis versus vagal event. We will repeat basic laboratory studies, and obtain noncontrast CT scan of the brain, and abdomen/pelvis. He will be admitted to the hospital. He does not really have much the way of pain at this time, a consult has been ordered for his clinical quality rn and for urology. Critical care attestation.: If time is entered above; I have spent that time in minutes in the direct care of this critically ill patient, excluding procedure time. ED Disposition Clinical Impression: Syncope Disposition: 09 OP ADMIT IP TO THIS HOSP Is pt being admited?: Yes Condition: Good Instructions: Syncope (ED)
[2018-06-01 00:52] LABS: Hematocrit 35.5 % (35.5-45.6); Hemoglobin 11.6 gm/dl (11.8-15.2); Mean Corpuscular HGB Conc 33 % (32-34); Mean Corpuscular Hemoglobin 26 pg (28-32); Mean Corpuscular Volume 80 fl (84-94); Platelet Count 283 K/mm3 (140-440); Red Blood Count 4.42 M/mm3 (3.65-5.03); Red Cell Distribution Width 17.6 % (13.2-15.2)
[2018-06-01 01:05] LABS: INR 1.18 (0.87-1.13)
[2018-06-01 01:36] LABS: Alanine Aminotransferase 24 units/L (7-56); Albumin 3.8 g/dL (3.9-5); BUN/Creatinine Ratio 15; Blood Urea Nitrogen 19 mg/dL (9-20); Calcium 9.2 mg/dL (8.4-10.2); Hemolysis Index 22
--- NOTE | 2018-06-01 02:51 | Cat Scan Report ---
FINAL REPORT EXAM: CT HEAD/BRAIN WO CON HISTORY: syncope TECHNIQUE: Routine imaging was obtained of the brain without IV contrast. Comparison is made to the study of 09/29/2015. FINDINGS: There are remote strokes in the inferior aspect of the left cerebellar hemisphere as well as in the left frontal lobe. There is no evidence of acute stroke or hemorrhage. The ventricular system is appropriate in size and is symmetric. The visualized sinuses are clear. The mastoid air cells are well pneumatized. IMPRESSION: No evidence of acute stroke or hemorrhage. 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
--- NOTE | 2018-06-01 03:10 | Cat Scan Report ---
FINAL REPORT EXAM: CT ABDOMEN PELVIS WO CON HISTORY: abd pain TECHNIQUE: Routine axial imaging was obtained of the abdomen pelvis without oral or IV contrast. Sagittal and coronal reconstructions were reviewed. There are no previous studies available for comparison. FINDINGS: Images through lung bases reveal minimal dependent atelectasis in both lower lobes. The heart is moderately enlarged. The liver, gallbladder, pancreas, spleen, and adrenal glands appear normal. The kidneys reveal bilateral moderate hydronephrosis changes extending to the bladder. There are no stones in either ureter or within the kidneys. There is mild perinephric stranding bilaterally. There calcification of the abdominal aorta which is normal in caliber. The bowel loops are normal in caliber. There are multiple diverticula descending and sigmoid colon. At the junction of the descending sigmoid colon there localized reticulation of the mesentery. Mild diverticulitis cannot be excluded. The appendix appears normal. In the pelvis there is a percutaneous cystostomy catheter in good position in the bladder. There is marked thickening of the entire bladder wall. There are multiple surgical clips along the floor of the pelvis. There is reticulation of the soft tissues ventral to the bladder along with a small hematoma. Presumably this is postsurgical in origin. The skeletal structures otherwise reveal arthritic changes lumbar spine. IMPRESSION: Status post placement of percutaneous cystostomy catheter with postsurgical changes noted. Small hematoma ventral to the bladder noted. Multiple surgical clips along the floor pelvis. Bilateral moderate hydronephrosis without stone seen in either ureter. Diverticulosis in the descending and sigmoid colon. Localized reticulation of the mesentery at the junction of the descending and sigmoid colon. Mild diverticulitis cannot be excluded. Cardiomegaly. Normal appendix. Arthritic changes in the lumbar spine.
[2018-06-01] MEDS ORDERED: ZOFRAN IV PRN (04:01)
--- NOTE | 2018-06-01 04:57 | History and Physical Report ---
CHIEF COMPLAINT: Syncopal attack. OTHER COMPLAINT: Includes weakness and bleeding from the suprapubic catheter. HISTORY OF PRESENT ILLNESS: The patient is a 77-year-old male, who had suprapubic catheter placed yesterday for dysuria and the patient started bleeding from the suprapubic catheter at home and then passed out three times. There was no history of chest pain. No history of shortness of breath. No history of nausea or vomiting. The patient was brought back to the Emergency Room by EMS. The patient also denies history of upper abdominal pain and only feels discomfort at the site of the suprapubic area where catheter was inserted. There was no history of rectal bleeding or history of hematemesis or nausea, vomiting. PAST MEDICAL HISTORY: Pertinent for hypertension. Also, the patient has a past history of arthritis. PAST SURGICAL HISTORY: Pertinent for prostate surgery, pacemaker placement. FAMILY HISTORY: Noncontributory. SOCIAL HISTORY: The patient does not smoke, does not drink alcohol and does not use illicit drugs. MEDICATIONS: The patient is on Zetia 10 mg by mouth daily, enteric-coated aspirin 81 mg by mouth daily, Coreg 25 mg by mouth twice daily, Cozaar 100 mg by mouth daily, mirabegron 50 mg by mouth daily, Pradaxa 150 mg by mouth twice daily, hydrochlorothiazide 25 mg by mouth daily, amlodipine 5 mg by mouth daily. ALLERGIES: There are no known drug allergies. REVIEW OF SYSTEMS: CONSTITUTIONAL: There is no fever, no chills, no diaphoresis. HEENT: There is no headache or sore throat. CARDIOVASCULAR SYSTEM: There is no chest pain or orthopnea. RESPIRATORY SYSTEM: There is no shortness of breath or cough. GASTROINTESTINAL: There is a suprapubic pain with no nausea, vomiting, diarrhea or constipation. NEUROLOGICAL: There is no numbness, no dizziness, no altered mental status. MUSCULOSKELETAL: There is no joint pain or swelling. DERMATOLOGICAL: There is no skin rash or itching. GENITOURINARY: There is dysuria with bleeding in Gan catheter that was inserted recently with no flank pain. Rest of system review is normal. PHYSICAL EXAMINATION: GENERAL: At the time of exam, the patient was found to be alert, oriented x 3 and not in acute distress. VITAL SIGNS: Shows temperature of 97.7 degrees Fahrenheit, pulse rate of 65, blood pressure 89/55, O2 sat of 99% on room air. HEENT: Pupils to be equal, round, reactive to light and accommodating. Extraocular muscles are intact. NECK: Supple with no JVD or carotid bruit. CARDIOVASCULAR SYSTEM: Show normal first and second heart sounds with no gallops or murmurs. RESPIRATORY SYSTEM: Show good air entry on both sides of the lungs with no abnormal breath sounds. GASTROINTESTINAL SYSTEM: Show abdomen to be full, soft with suprapubic catheter in place. NEUROLOGIC: Show no focal deficits. MUSCULOSKELETAL SYSTEM: Show no joint swelling or tenderness. DERMATOLOGICAL SYSTEM: Show no skin rash. GENITOURINARY: Showing no costovertebral angle tenderness. PERTINENT LABORATORY AND IMAGING STUDIES: The patient has CBC done with low hemoglobin of 11.6, normal hematocrit, low MCV of 80. Coagulation studies show slight increase of INR of 1.18 with slight increase in prothrombin time of 15.7. The patient's chemistry show low chloride level of 97.5, elevated alkaline phosphatase of 31 and slightly decreased albumin level of 3.8. IMAGING STUDIES: The patient has CT of the abdomen and pelvis done that shows evidence of placement of percutaneous cystostomy catheter with post-surgical changes noted according to the radiologist. There was small hematoma ventral to the bladder that was also noted. The patient said there is diverticulosis and then went forward to say that my diverticulitis cannot be excluded. There is finding of cardiomegaly, normal appendix and arthritic changes in the lumbar spine. 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 DIAGNOSES: 1. Recurrent syncopal attack. 2. Hematuria. 3. Hydronephrosis. 4. Diverticulitis. PLAN: 1. The patient will be admitted to telemetry. 2. The patient will have echocardiogram done in the morning and will have cardiac enzymes involving troponin, total CK and CK-MB checked q. 6 hours x 2 more levels to check for syncopal attack. 3. The patient will continue Urology consult with Dr. Leary ordered by the Emergency Room physician as well as Cardiology consult with Dr. Casillas ordered by the Emergency Room physician. 4. The patient will be on Tylenol 650 mg by mouth every 4 hours for fever and headache and will be on IV morphine 2 mg every 3 hours as needed for pain. 5. The patient will be on IV Zosyn 3.375 grams q. 8 hours and IV metronidazole 500 mg q. 8 hours for the treatment of diverticulitis. 6. The patient will be on IV Zofran 4 mg every 8 hours as needed for nausea and vomiting and will be on his home medication as shown in the medication reconciliation section. 7. The patient will have blood culture done before starting of the antibiotics. 8. The patient's diet will be 2 g sodium diet. JOB# [id number] OCN/TINO MTDD
[2018-06-01] MEDS: FLAGYL 500 MG/100 ML 500 MG/100 ML BAG IV SCH ×3 (06:19→22:43)
[2018-06-01] MEDS: MORPHINE IV PRN (06:36)
[2018-06-01 06:57] LABS: Hematocrit 32.3 % (35.5-45.6); Hemoglobin 10.7 gm/dl (11.8-15.2)
[2018-06-01 07:15] LABS: Creatine Kinase MB 3.7 ng/mL (0.0-4.0)
[2018-06-01] MEDS: ZOSYN/NS 3.375GM/50ML 3.375 GM/50 ML BAG IV SCH ×3 (07:27→22:42)
[2018-06-01] MEDS ORDERED: NON-FORMULARY (Amlodipine 5 MG) PO SCH (10:00)
[2018-06-01] MEDS ORDERED: ZETIA PO SCH (10:00)
[2018-06-01] MEDS ORDERED: NON-FORMULARY (Mirabegron [Myrbetriq] 50 MG) PO SCH (10:00)
[2018-06-01] MEDS ORDERED: COREG PO SCH (10:00)
[2018-06-01] MEDS ORDERED: NON-FORMULARY (Losartan [Cozaar] 100 MG) PO SCH (10:00)
[2018-06-01] MEDS ORDERED: NON-FORMULARY (Hctz 25 MG) PO SCH (10:00)
[2018-06-01] MEDS: COREG PO SCH ×2 (10:18→22:43)
[2018-06-01] MEDS: HCTZ PO SCH (10:28)
[2018-06-01] MEDS: COZAAR PO SCH (10:28)
[2018-06-01] MEDS: NORVASC PO SCH (10:29)
--- NOTE | 2018-06-01 11:44 | Consultation ---
History of Present Illness Consult date: 06/01/18 Consult reason: syncope History of present illness: 77-year-old man admitted following 3 episodes of reported brief syncope which occurred at home. His syncopal episodes followed an emergency room visit for bleeding associated with an indwelling suprapubic catheter. Following manipulation of the suprapubic and discharge home, he returned several hours later with syncope. The patient has been extensive history of coronary disease, predominantly nonischemic cardiomyopathy, and has an indwelling cardiac defibrillator. Most recent cardiac catheterization a year and a half ago described small vessel disease of the circumflex and right coronary artery recommended for medical therapy, with a left ventricular ejection fraction 30%. The severity of the cardiomyopathy appeared disproportionate to the degree of coronary artery disease. He subsequently had cardiac defibrillator implanted. His most recent defibrillator interrogation was 6 months ago. Last year, a repeat echocardiogram documented persistent cardiomyopathy with left ventricular ejection fraction 20-25%. With regards to the current episode, the patient's syncope was nonexertional, not associated with chest pain, shortness of breath or palpitations. He did not experience a defibrillator discharge. He is currently on the telemetry floor, comfortable, awake and alert, asymptomatic looks and feels well. ECG on presentation a ventricular paced rhythm. Past History Past Medical History: CAD, heart failure Medications and Allergies Allergies Allergy/AdvReac Type Severity Reaction Status Date / Time No Known Allergies Allergy Verified 03/13/14 06:35 Home Medications Medication Instructions Recorded Confirmed Last Taken Type Ezetimibe [Zetia] 10 mg PO DAILY #30 tablet 09/26/15 08/03/17 08/02/17 18:00 Rx Aspirin EC [Aspirin Enteric Coated 81 mg PO QDAY 06/21/16 08/03/17 07/30/17 08: 00 History TAB] Carvedilol [Coreg] 25 mg PO BID 06/21/16 08/03/17 08/02/17 19:00 History Losartan [Cozaar] 100 mg PO DAILY 06/21/16 08/03/17 08/03/17 07:15 History Mirabegron [Myrbetriq] 50 mg PO QDAY 06/21/16 08/03/17 08/02/17 08:00 History Dabigatran [Pradaxa] 150 mg PO BID 02/05/17 08/03/17 07/30/17 08:00 History HCTZ 25 mg PO DAILY 08/03/17 08/03/17 08/02/17 08:00 History amLODIPine 5 mg PO DAILY 08/03/17 08/03/17 08/03/17 07:15 History Active Meds: Active Medications Acetaminophen (Tylenol) 650 mg PO Q4H PRN PRN Reason: Fever >101 Amlodipine Besylate (Norvasc) 5 mg PO DAILY [facility] Last Admin: 06/01/18 10:29 Dose: Not Given Carvedilol (Coreg) 25 mg PO BID [facility] Last Admin: 06/01/18 10:18 Dose: 25 mg Ezetimibe (Zetia) 10 mg PO QHS [facility] Hydrochlorothiazide (Hctz) 25 mg PO DAILY [facility] Last Admin: 06/01/18 10:28 Dose: Not Given Metronidazole (Flagyl 500 Mg/100 Ml) 500 mg in 100 mls @ 100 mls/hr IV Q8HR [facility] ; Protocol Last Admin: 06/01/18 06:19 Dose: 100 mls/hr Piperacillin Sod/Tazobactam Sod (Zosyn/Ns 3.375gm/50ml) 3.375 gm in 50 mls @ 100 mls/hr IV Q8HR [facility]; Protocol Last Admin: 06/01/18 07:27 Dose: 100 mls/hr Losartan Potassium (Cozaar) 100 mg PO DAILY [facility] Last Admin: 06/01/18 10:28 Dose: Not Given Miscellaneous Medication (Mirabegron [Myrbetriq]) 50 mg PO QDAY [facility] Morphine Sulfate (Morphine) 2 mg IV Q3H PRN PRN Reason: Pain, Moderate (4-6) Last Admin: 06/01/18 06:36 Dose: 2 mg Ondansetron HCl (Zofran) 4 mg IV Q8H PRN PRN Reason: Nausea And Vomiting Review of Systems Cardiovascular: syncope, no chest pain, no orthopnea, no palpitations, no rapid/ irregular heart beat, no edema, no lightheadedness, no shortness of breath Physical Examination Vital Signs Temp Pulse Resp BP Pulse Ox 97.7 F 64 14 89/55 100 05/31/18 23:43 05/31/18 23:43 05/31/18 23:43 05/31/18 23:43 05/31/18 23:43 General appearance: no acute distress HEENT: Positive: PERRL Neck: Positive: neck supple Cardiac: Positive: Reg Rate and Rhythm Lungs: Positive: Decreased Breath Sounds Neuro: Positive: Grossly Intact Abdomen: Positive: Soft Male genitourinary: Positive: deferred Skin: Positive: Clear Extremities: Absent: edema Results 06/01/18 06:07 06/01/18 00:27 Cardiac Enzymes 06/01/18 06/01/18 Range/Units 00:27 06:07 AST 28 (5-40) units/L CK-MB (CK-2) 3.7 (0.0-4.0) ng/mL Coagulation 06/01/18 Range/Units 00:27 PT 15.7 H (12.2-14.9) Sec. INR 1.18 H (0.87-1.13) CBC 06/01/18 06/01/18 Range/Units 00:27 06:07 WBC 8.3 (4.5-11.0) K/mm3 RBC 4.42 (3.65-5.03) M/mm3 Hgb 11.6 L 10.7 L (11.8-15.2) gm/dl Hct 35.5 32.3 L (35.5-45.6) % Plt Count 283 (140-440) K/mm3 Comprehensive Metabolic Panel 06/01/18 Range/Units 00:27 Sodium 137 (137-145) mmol/L Potassium 4.0 (3.6-5.0) mmol/L Chloride 97.5 L (98-107) mmol/L Carbon Dioxide 23 (22-30) mmol/L BUN 19 (9-20) mg/dL Creatinine 1.3 (0.8-1.5) mg/dL Glucose 146 H (75-100) mg/dL Calcium 9.2 (8.4-10.2) mg/dL AST 28 (5-40) units/L ALT 24 (7-56) units/L Alkaline Phosphatase 31 L (35-129) units/L Total Protein 6.8 (6.3-8.2) g/dL Albumin 3.8 L (3.9-5) g/dL EKG interpretations Pacemaker: ventricular pacing w/capt Assessment and Plan - Patient Problems (1) Syncope Current Visit: Yes Status: Acute Plan to address problem: Syncope followed manipulation of the patient's suprapubic catheter, and was associated with nausea and dry heaves, suggesting a likely vasovagal reaction. We will recommend ICD interrogation to rule out a cardiac tachycardia or bradycardia arrhythmia that might have contributed to syncope, otherwise no further cardiac intervention is warranted. The patient's ICD is believed to be a [employer] device.
[2018-06-01 12:56] LABS: Hematocrit 29.6 % (35.5-45.6); Hemoglobin 9.7 gm/dl (11.8-15.2)
[2018-06-01 13:02] LABS: Creatine Kinase MB 3.1 ng/mL (0.0-4.0)
--- NOTE | 2018-06-01 13:20 | Event Note ---
Date: 06/01/18 Patient was seen and evaluated this morning, patient was hemodynamically stable , bleeding from the super pubic catheter stopped. No episode of syncope after admission. Cardiology consult appreciated. Continue management per H&P.
[2018-06-01 18:13] LABS: Hematocrit 31.2 % (35.5-45.6); Hemoglobin 10.1 gm/dl (11.8-15.2)
[2018-06-01] MEDS: ZETIA PO SCH (22:44)
[2018-06-02] MEDS: MORPHINE IV PRN (00:09)
[2018-06-02] MEDS: FLAGYL 500 MG/100 ML 500 MG/100 ML BAG IV SCH ×3 (06:42→22:06)
[2018-06-02] MEDS: ZOSYN/NS 3.375GM/50ML 3.375 GM/50 ML BAG IV SCH ×3 (06:42→22:05)
[2018-06-02 07:07] LABS: Hematocrit 32.7 % (35.5-45.6); Hemoglobin 10.2 gm/dl (11.8-15.2); Mean Corpuscular HGB Conc 31 % (32-34); Mean Corpuscular Hemoglobin 26 pg (28-32); Mean Corpuscular Volume 84 fl (84-94); Platelet Count 222 K/mm3 (140-440); Red Blood Count 3.92 M/mm3 (3.65-5.03); Red Cell Distribution Width 18.3 % (13.2-15.2)
[2018-06-02 07:49] LABS: Anisocytosis 1+; Basophils % (Manual) 0 % (0.0-1.8); Eosinophils % (Manual) 0 % (0.0-4.3); Hypochromasia 1+; Ovalocytes Few; Schistocytes Rare; Total Cells Counted 100
--- NOTE | 2018-06-02 08:06 | Consultation ---
Past History Past Medical History: CAD, heart failure Medications and Allergies Allergies Allergy/AdvReac Type Severity Reaction Status Date / Time No Known Allergies Allergy Verified 03/13/14 06:35 Home Medications Medication Instructions Recorded Confirmed Last Taken Type Ezetimibe [Zetia] 10 mg PO DAILY #30 tablet 09/26/15 06/02/18 08/02/17 18:00 Rx Aspirin EC [Aspirin Enteric Coated 81 mg PO QDAY 06/21/16 06/02/18 07/30/17 08: 00 History TAB] Carvedilol [Coreg] 25 mg PO BID 06/21/16 06/02/18 08/02/17 19:00 History Losartan [Cozaar] 100 mg PO DAILY 06/21/16 06/02/18 08/03/17 07:15 History Mirabegron [Myrbetriq] 50 mg PO QDAY 06/21/16 06/02/18 08/02/17 08:00 History Dabigatran [Pradaxa] 150 mg PO BID 02/05/17 06/02/18 07/30/17 08:00 History HCTZ 25 mg PO DAILY 08/03/17 06/02/18 08/02/17 08:00 History amLODIPine 5 mg PO DAILY 08/03/17 06/02/18 08/03/17 07:15 History Active Meds: Active Medications Acetaminophen (Tylenol) 650 mg PO Q4H PRN PRN Reason: Fever >101 Amlodipine Besylate (Norvasc) 5 mg PO DAILY [facility] Last Admin: 06/01/18 10:29 Dose: Not Given Carvedilol (Coreg) 25 mg PO BID [facility] Last Admin: 06/01/18 22:43 Dose: 25 mg Ezetimibe (Zetia) 10 mg PO QHS [facility] Last Admin: 06/01/18 22:44 Dose: 10 mg Hydrochlorothiazide (Hctz) 25 mg PO DAILY [facility] Last Admin: 06/01/18 10:28 Dose: Not Given Metronidazole (Flagyl 500 Mg/100 Ml) 500 mg in 100 mls @ 100 mls/hr IV Q8HR [facility] ; Protocol Last Admin: 06/02/18 06:42 Dose: 100 mls/hr Piperacillin Sod/Tazobactam Sod (Zosyn/Ns 3.375gm/50ml) 3.375 gm in 50 mls @ 100 mls/hr IV Q8HR [facility]; Protocol Last Admin: 06/02/18 06:42 Dose: 100 mls/hr Losartan Potassium (Cozaar) 100 mg PO DAILY [facility] Last Admin: 06/01/18 10:28 Dose: Not Given Miscellaneous Medication (Mirabegron [Myrbetriq]) 50 mg PO QDAY [facility] Morphine Sulfate (Morphine) 2 mg IV Q3H PRN PRN Reason: Pain, Moderate (4-6) Last Admin: 06/02/18 00:09 Dose: 2 mg Ondansetron HCl (Zofran) 4 mg IV Q8H PRN PRN Reason: Nausea And Vomiting Exam - Constitutional Vitals: Temp Pulse Resp BP Pulse Ox 97.9 F 64 20 141/74 96 06/02/18 07:56 06/02/18 07:56 06/02/18 07:56 06/02/18 07:56 06/02/18 07:56 Results - Labs CBC & Chem 7: 06/02/18 04:48 06/01/18 00:27 Labs: Abnormal lab results 06/01/18 06/01/18 06/02/18 Range/Units 12:12 17:31 04:48 Hgb 9.7 L 10.1 L 10.2 L (11.8-15.2) gm/dl Hct 29.6 L 31.2 L 32.7 L (35.5-45.6) % MCH 26 L (28-32) pg MCHC 31 L (32-34) % RDW 18.3 H (13.2-15.2) % Seg Neuts % (Manual) 90.0 H (40.0-70.0) % Lymphocytes % (Manual) 8.0 L (13.4-35.0) % Lymphocytes # (Manual) 0.6 L (1.2-5.4) K/mm3 Assessment and Plan PROST CA - s/p RRP 2000 UR INCONT - h/o AUS x2, sling UR RET - s/p 05/31 office SPT GROSS HEMATURIA SPT SITE BLEEDING BLADDER SPASMS USD - SPT irrigated - stop blood thinners - pradaxa, asa - pt w/ c/o intermit obst cath monitor for intermit clot obst vs spasms - antichoninergic - Oxybutynin 5mg tid - rest - h/h stable - plan outpt vs inpt cysto, tx stx
[2018-06-02] MEDS ORDERED: MILK OF MAGNESIA PO PRN (08:17)
[2018-06-02] MEDS ORDERED: NACL 0.9% IR ONE (09:17)
[2018-06-02] MEDS: HCTZ PO SCH (10:51)
[2018-06-02] MEDS: COZAAR PO SCH (10:51)
[2018-06-02] MEDS: COREG PO SCH ×2 (10:52→22:06)
[2018-06-02] MEDS: NORVASC PO SCH (10:52)
--- NOTE | 2018-06-02 11:09 | Progress Note ---
Assessment and Plan Assessment and plan: 77 year old male with past medical history significant for CAD, on pacemaker, BPH presented to the emergency department for episodes of syncope. Patient had suprapubic catheter earlier in the morning of day of admission. patient had bleeding from the catheter and admitted to the floor. - Cardiology consulted - Echo was done and EF of 55-60% improved from 30% - We will do ICD interrogation BPH status post suprapubic catheter - the catheter was clogged overnight - Urology evaluated him and corrected, recommended to be evaluated by Dr. Leary in the morning Hypertension - Continue home medications Disposition - Continue inpatient care and possible discharge tomorrow after evaluated by Dr. Leary History Interval history: Patient was seen and evaluated this morning, patient had blockage of his urinary cath overnight, evaluated and fixed by urology this morning. Hospitalist Physical - Physical exam Narrative exam: Not in cardiopulmonary distress. The patient appeared well nourished and normally developed. Vital signs as documented. Head exam is unremarkable. No scleral icterus . Neck is without jugular venous distension, thyromegaly, or carotid bruits. Lungs are clear to auscultation. Cardiac exam reveals regular rate and Rhythm. First and second heart sounds normal. No murmurs, rubs or gallops. Abdominal exam reveals normal bowel sounds, no masses, no organomegaly and no aortic enlargement. Extremities are nonedematous and both femoral and pedal pulses are normal. suprapubic catheter in place, draining urine. CAR FRAMER: Alert and oriented 3. No focal weakness. - Constitutional Vitals: Temp Pulse Resp BP Pulse Ox 97.9 F 66 20 135/68 99 06/02/18 07:56 06/02/18 08:13 06/02/18 07:56 06/02/18 10:51 06/02/18 08:13 General appearance: Present: no acute distress Results - Labs CBC & Chem 7: 06/02/18 04:48 06/01/18 00:27 Labs: Laboratory Last Values WBC 7.0 K/mm3 (4.5-11.0) 06/02/18 04:48 RBC 3.92 M/mm3 (3.65-5.03) 06/02/18 04:48 Hgb 10.2 gm/dl (11.8-15.2) L 06/02/18 04:48 Hct 32.7 % (35.5-45.6) L 06/02/18 04:48 MCV 84 fl (84-94) 06/02/18 04:48 MCH 26 pg (28-32) L 06/02/18 04:48 MCHC 31 % (32-34) L 06/02/18 04:48 RDW 18.3 % (13.2-15.2) H 06/02/18 04:48 Plt Count 222 K/mm3 (140-440) 06/02/18 04:48 Add Manual Diff Complete 06/02/18 04:48 Total Counted 100 06/02/18 04:48 Seg Neuts % (Manual) 90.0 % (40.0-70.0) H 06/02/18 04:48 Band Neutrophils % 0 % 06/02/18 04:48 Lymphocytes % (Manual) 8.0 % (13.4-35.0) L 06/02/18 04:48 Reactive Lymphs % (Man) 0 % 06/02/18 04:48 Monocytes % (Manual) 2.0 % (0.0-7.3) 06/02/18 04:48 Eosinophils % (Manual) 0 % (0.0-4.3) 06/02/18 04:48 Basophils % (Manual) 0 % (0.0-1.8) 06/02/18 04:48 Metamyelocytes % 0 % 06/02/18 04:48 Myelocytes % 0 % 06/02/18 04:48 Promyelocytes % 0 % 06/02/18 04:48 Blast Cells % 0 % 06/02/18 04:48 Nucleated RBC % Not Reportable 06/02/18 04:48 Seg Neutrophils # Man 6.3 K/mm3 (1.8-7.7) 06/02/18 04:48 Band Neutrophils # 0.0 K/mm3 06/02/18 04:48 Lymphocytes # (Manual) 0.6 K/mm3 (1.2-5.4) L 06/02/18 04:48 Abs React Lymphs (Man) 0.0 K/mm3 06/02/18 04:48 Monocytes # (Manual) 0.1 K/mm3 (0.0-0.8) 06/02/18 04:48 Eosinophils # (Manual) 0.0 K/mm3 (0.0-0.4) 06/02/18 04:48 Basophils # (Manual) 0.0 K/mm3 (0.0-0.1) 06/02/18 04:48 Metamyelocytes # 0.0 K/mm3 06/02/18 04:48 Myelocytes # 0.0 K/mm3 06/02/18 04:48 Promyelocytes # 0.0 K/mm3 06/02/18 04:48 Blast Cells # 0.0 K/mm3 06/02/18 04:48 WBC Morphology Not Reportable 06/02/18 04:48 Hypersegmented Neuts Not Reportable 06/02/18 04:48 Hyposegmented Neuts Not Reportable 06/02/18 04:48 Hypogranular Neuts Not Reportable 06/02/18 04:48 Smudge Cells Not Reportable 06/02/18 04:48 Toxic Granulation Not Reportable 06/02/18 04:48 Toxic Vacuolation Not Reportable 06/02/18 04:48 Dohle Bodies Not Reportable 06/02/18 04:48 Pelger-Huet Anomaly Not Reportable 06/02/18 04:48 Juliana Rods Not Reportable 06/02/18 04:48 Platelet Estimate Appears normal 06/02/18 04:48 Clumped Platelets Not Reportable 06/02/18 04:48 Plt Clumps, EDTA Not Reportable 06/02/18 04:48 Large Platelets Not Reportable 06/02/18 04:48 Giant Platelets Not Reportable 06/02/18 04:48 Platelet Satelliting Not Reportable 06/02/18 04:48 Plt Morphology Comment Not Reportable 06/02/18 04:48 RBC Morphology Not Reportable 06/02/18 04:48 Dimorphic RBCs Not Reportable 06/02/18 04:48 Polychromasia Not Reportable 06/02/18 04:48 Hypochromasia 1+ 06/02/18 04:48 Poikilocytosis Not Reportable 06/02/18 04:48 Anisocytosis 1+ 06/02/18 04:48 Microcytosis Not Reportable 06/02/18 04:48 Macrocytosis Not Reportable 06/02/18 04:48 Spherocytes Not Reportable 06/02/18 04:48 Pappenheimer Bodies Not Reportable 06/02/18 04:48 Sickle Cells Not Reportable 06/02/18 04:48 Target Cells Not Reportable 06/02/18 04:48 Tear Drop Cells Not Reportable 06/02/18 04:48 Ovalocytes Few 06/02/18 04:48 Helmet Cells Not Reportable 06/02/18 04:48 [place] Bodies Not Reportable 06/02/18 04:48 [place] Rings Not Reportable 06/02/18 04:48 [place] Cells Not Reportable 06/02/18 04:48 Bite Cells Not Reportable 06/02/18 04:48 Crenated Cell Not Reportable 06/02/18 04:48 Elliptocytes Not Reportable 06/02/18 04:48 Acanthocytes (Spur) Not Reportable 06/02/18 04:48 Rouleaux Not Reportable 06/02/18 04:48 Hemoglobin C Crystals Not Reportable 06/02/18 04:48 Schistocytes Rare 06/02/18 04:48 Malaria parasites Not Reportable 06/02/18 04:48 [place] Bodies Not Reportable 06/02/18 04:48 Hem Pathologist Commnt No 06/02/18 04:48 PT 15.7 Sec. (12.2-14.9) H 06/01/18 00:27 INR 1.18 (0.87-1.13) H 06/01/18 00:27 Sodium 137 mmol/L (137-145) 06/01/18 00:27 Potassium 4.0 mmol/L (3.6-5.0) 06/01/18 00:27 Chloride 97.5 mmol/L (98-107) L 06/01/18 00:27 Carbon Dioxide 23 mmol/L (22-30) 06/01/18 00:27 Anion Gap 21 mmol/L 06/01/18 00:27 BUN 19 mg/dL (9-20) 06/01/18 00:27 Creatinine 1.3 mg/dL (0.8-1.5) 06/01/18 00:27 Estimated GFR > 60 ml/min 06/01/18 00:27 BUN/Creatinine Ratio 15 % 06/01/18 00:27 Glucose 146 mg/dL (75-100) H 06/01/18 00:27 Lactic Acid 1.80 mmol/L (0.7-2.0) 06/01/18 02:08 Calcium 9.2 mg/dL (8.4-10.2) 06/01/18 00:27 Total Bilirubin 0.90 mg/dL (0.1-1.2) 06/01/18 00:27 AST 28 units/L (5-40) 06/01/18 00:27 ALT 24 units/L (7-56) 06/01/18 00:27 Alkaline Phosphatase 31 units/L (35-129) L 06/01/18 00: Total Creatine Kinase 109 units/L (55-170) 06/01/18 12:12 CK-MB (CK-2) 3.1 ng/mL (0.0-4.0) 06/01/18 12:12 CK-MB (CK-2) Rel Index 2.8 (0-4) 06/01/18 12:12 Troponin T < 0.010 ng/mL (0.00-0.029) 06/01/18 12:12 Total Protein 6.8 g/dL (6.3-8.2) 06/01/18 00:27 Albumin 3.8 g/dL (3.9-5) L 06/01/18 00: Albumin/Globulin Ratio 1.3 % 06/01/18 00:27
--- NOTE | 2018-06-02 13:11 | Progress Note ---
Assessment and Plan - Patient Problems (1) Syncope Current Visit: Yes Status: Acute Plan to address problem: ICD interrogation was done and reported no cardiac events associated with his syncopal episodes. Subjective Date of service: 06/02/18 Interval history: Patient is comfortable, no cardiac complaints, looks and feels well. ICD interrogation was done and reported no cardiac events associated with his syncopal episodes. Objective Vital Signs Temp Pulse Pulse Resp BP BP Pulse Ox 06/02/18 10:51 135/68 06/02/18 10:00 67 06/02/18 08:13 66 99 06/02/18 07:56 97.9 F 64 20 141/74 96 06/02/18 03:14 97.6 F 67 18 161/92 98 06/02/18 00:39 18 06/02/18 00:09 18 06/01/18 22:43 67 130/66 06/01/18 22:00 67 68 100 06/01/18 19:35 67 100 06/01/18 19:23 98.7 F 20 130/66 06/01/18 13:45 66 95/43 94 06/01/18 13:44 64 91/45 98 06/01/18 13:43 98.9 F 67 18 88/46 93 - Physical Examination General: Appears Well, No Apparent Distress HEENT: Positive: PERRL Neck: Positive: neck supple Cardiac: Positive: Reg Rate and Rhythm Lungs: Positive: Decreased Breath Sounds Neuro: Positive: Grossly Intact Abdomen: Positive: Soft Skin: Positive: Clear Extremities: Absent: edema - Labs and Meds CBC 06/01/18 06/02/18 Range/Units 17:31 04:48 WBC 7.0 (4.5-11.0) K/mm3 RBC 3.92 (3.65-5.03) M/mm3 Hgb 10.1 L 10.2 L (11.8-15.2) gm/dl Hct 31.2 L 32.7 L (35.5-45.6) % Plt Count 222 (140-440) K/mm3 Pacemaker: ventricular pacing w/capt
[2018-06-02] MEDS: DITROPAN PO SCH ×2 (14:15→20:33)
[2018-06-02] MEDS: TYLENOL PO PRN ×2 (15:11→20:37)
[2018-06-02] MEDS: ZETIA PO SCH (22:06)
[2018-06-03] MEDS: ZOSYN/NS 3.375GM/50ML 3.375 GM/50 ML BAG IV SCH (05:52)
[2018-06-03] MEDS: FLAGYL 500 MG/100 ML 500 MG/100 ML BAG IV SCH ×2 (05:53→14:25)
[2018-06-03] MEDS: DITROPAN PO SCH ×2 (08:32→13:33)
[2018-06-03] MEDS: NORVASC PO SCH (09:37)
[2018-06-03] MEDS: HCTZ PO SCH (09:37)
[2018-06-03] MEDS: COREG PO SCH ×2 (09:38→21:55)
[2018-06-03] MEDS: COZAAR PO SCH (09:38)
--- NOTE | 2018-06-03 12:00 | Progress Note ---
Assessment and Plan Assessment and plan: 77 year old male with past medical history significant for CAD, on pacemaker, BPH presented to the emergency department for episodes of syncope. Patient had suprapubic catheter earlier in the morning of day of admission. patient had bleeding from the catheter and admitted to the floor. - Cardiology consulted - Echo was done and EF of 55-60% improved from 30% - We will do ICD interrogation BPH status post suprapubic catheter - the catheter was clogged overnight - Urology evaluated him and corrected, recommended to be evaluated by Dr. Leary in the morning Hypertension - Continue home medications Disposition - Per Dr Leary patient is medically clear for discharge. History Interval history: Patient was seen and evaluated this morning, patient didn't have any complaints. Hospitalist Physical - Physical exam Narrative exam: Not in cardiopulmonary distress. The patient appeared well nourished and normally developed. Vital signs as documented. Head exam is unremarkable. No scleral icterus . Neck is without jugular venous distension, thyromegaly, or carotid bruits. Lungs are clear to auscultation. Cardiac exam reveals regular rate and Rhythm. First and second heart sounds normal. No murmurs, rubs or gallops. Abdominal exam reveals normal bowel sounds, no masses, no organomegaly and no aortic enlargement. Extremities are nonedematous and both femoral and pedal pulses are normal. suprapubic catheter in place, draining urine. PASTRYCOOK: Alert and oriented 3. No focal weakness. - Constitutional Vitals: Temp Pulse Resp BP Pulse Ox 98.7 F 66 18 134/71 98 06/03/18 07:10 06/03/18 10:00 06/03/18 10:00 06/03/18 09:38 06/03/18 10:00 General appearance: Present: no acute distress Results - Labs CBC & Chem 7: 06/02/18 04:48 06/01/18 00:27 Labs: Laboratory Last Values WBC 7.0 K/mm3 (4.5-11.0) 06/02/18 04:48 RBC 3.92 M/mm3 (3.65-5.03) 06/02/18 04:48 Hgb 10.2 gm/dl (11.8-15.2) L 06/02/18 04:48 Hct 32.7 % (35.5-45.6) L 06/02/18 04:48 MCV 84 fl (84-94) 06/02/18 04:48 MCH 26 pg (28-32) L 06/02/18 04:48 MCHC 31 % (32-34) L 06/02/18 04:48 RDW 18.3 % (13.2-15.2) H 06/02/18 04:48 Plt Count 222 K/mm3 (140-440) 06/02/18 04:48 Add Manual Diff Complete 06/02/18 04:48 Total Counted 100 06/02/18 04:48 Seg Neuts % (Manual) 90.0 % (40.0-70.0) H 06/02/18 04:48 Band Neutrophils % 0 % 06/02/18 04:48 Lymphocytes % (Manual) 8.0 % (13.4-35.0) L 06/02/18 04:48 Reactive Lymphs % (Man) 0 % 06/02/18 04:48 Monocytes % (Manual) 2.0 % (0.0-7.3) 06/02/18 04:48 Eosinophils % (Manual) 0 % (0.0-4.3) 06/02/18 04:48 Basophils % (Manual) 0 % (0.0-1.8) 06/02/18 04:48 Metamyelocytes % 0 % 06/02/18 04:48 Myelocytes % 0 % 06/02/18 04:48 Promyelocytes % 0 % 06/02/18 04:48 Blast Cells % 0 % 06/02/18 04:48 Nucleated RBC % Not Reportable 06/02/18 04:48 Seg Neutrophils # Man 6.3 K/mm3 (1.8-7.7) 06/02/18 04:48 Band Neutrophils # 0.0 K/mm3 06/02/18 04:48 Lymphocytes # (Manual) 0.6 K/mm3 (1.2-5.4) L 06/02/18 04:48 Abs React Lymphs (Man) 0.0 K/mm3 06/02/18 04:48 Monocytes # (Manual) 0.1 K/mm3 (0.0-0.8) 06/02/18 04:48 Eosinophils # (Manual) 0.0 K/mm3 (0.0-0.4) 06/02/18 04:48 Basophils # (Manual) 0.0 K/mm3 (0.0-0.1) 06/02/18 04:48 Metamyelocytes # 0.0 K/mm3 06/02/18 04:48 Myelocytes # 0.0 K/mm3 06/02/18 04:48 Promyelocytes # 0.0 K/mm3 06/02/18 04:48 Blast Cells # 0.0 K/mm3 06/02/18 04:48 WBC Morphology Not Reportable 06/02/18 04:48 Hypersegmented Neuts Not Reportable 06/02/18 04:48 Hyposegmented Neuts Not Reportable 06/02/18 04:48 Hypogranular Neuts Not Reportable 06/02/18 04:48 Smudge Cells Not Reportable 06/02/18 04:48 Toxic Granulation Not Reportable 06/02/18 04:48 Toxic Vacuolation Not Reportable 06/02/18 04:48 Dohle Bodies Not Reportable 06/02/18 04:48 Pelger-Huet Anomaly Not Reportable 06/02/18 04:48 Juliana Rods Not Reportable 06/02/18 04:48 Platelet Estimate Appears normal 06/02/18 04:48 Clumped Platelets Not Reportable 06/02/18 04:48 Plt Clumps, EDTA Not Reportable 06/02/18 04:48 Large Platelets Not Reportable 06/02/18 04:48 Giant Platelets Not Reportable 06/02/18 04:48 Platelet Satelliting Not Reportable 06/02/18 04:48 Plt Morphology Comment Not Reportable 06/02/18 04:48 RBC Morphology Not Reportable 06/02/18 04:48 Dimorphic RBCs Not Reportable 06/02/18 04:48 Polychromasia Not Reportable 06/02/18 04:48 Hypochromasia 1+ 06/02/18 04:48 Poikilocytosis Not Reportable 06/02/18 04:48 Anisocytosis 1+ 06/02/18 04:48 Microcytosis Not Reportable 06/02/18 04:48 Macrocytosis Not Reportable 06/02/18 04:48 Spherocytes Not Reportable 06/02/18 04:48 Pappenheimer Bodies Not Reportable 06/02/18 04:48 Sickle Cells Not Reportable 06/02/18 04:48 Target Cells Not Reportable 06/02/18 04:48 Tear Drop Cells Not Reportable 06/02/18 04:48 Ovalocytes Few 06/02/18 04:48 Helmet Cells Not Reportable 06/02/18 04:48 [place] Bodies Not Reportable 06/02/18 04:48 [place] Rings Not Reportable 06/02/18 04:48 Jose Juan Cells Not Reportable 06/02/18 04:48 Bite Cells Not Reportable 06/02/18 04:48 Crenated Cell Not Reportable 06/02/18 04:48 Elliptocytes Not Reportable 06/02/18 04:48 Acanthocytes (Spur) Not Reportable 06/02/18 04:48 Rouleaux Not Reportable 06/02/18 04:48 Hemoglobin C Crystals Not Reportable 06/02/18 04:48 Schistocytes Rare 06/02/18 04:48 Malaria parasites Not Reportable 06/02/18 04:48 [place] Bodies Not Reportable 06/02/18 04:48 Hem Pathologist Commnt No 06/02/18 04:48 PT 15.7 Sec. (12.2-14.9) H 06/01/18 00:27 INR 1.18 (0.87-1.13) H 06/01/18 00:27 Sodium 137 mmol/L (137-145) 06/01/18 00:27 Potassium 4.0 mmol/L (3.6-5.0) 06/01/18 00:27 Chloride 97.5 mmol/L (98-107) L 06/01/18 00:27 Carbon Dioxide 23 mmol/L (22-30) 06/01/18 00:27 Anion Gap 21 mmol/L 06/01/18 00:27 BUN 19 mg/dL (9-20) 06/01/18 00:27 Creatinine 1.3 mg/dL (0.8-1.5) 06/01/18 00:27 Estimated GFR > 60 ml/min 06/01/18 00:27 BUN/Creatinine Ratio 15 % 06/01/18 00:27 Glucose 146 mg/dL (75-100) H 06/01/18 00:27 Lactic Acid 1.80 mmol/L (0.7-2.0) 06/01/18 02:08 Calcium 9.2 mg/dL (8.4-10.2) 06/01/18 00:27 Total Bilirubin 0.90 mg/dL (0.1-1.2) 06/01/18 00:27 AST 28 units/L (5-40) 06/01/18 00:27 ALT 24 units/L (7-56) 06/01/18 00:27 Alkaline Phosphatase 31 units/L (35-129) L 06/01/18 00:27 Total Creatine Kinase 109 units/L (55-170) 06/01/18 12:12 CK-MB (CK-2) 3.1 ng/mL (0.0-4.0) 06/01/18 12:12 CK-MB (CK-2) Rel Index 2.8 (0-4) 06/01/18 12:12 Troponin T < 0.010 ng/mL (0.00-0.029) 06/01/18 12:12 Total Protein 6.8 g/dL (6.3-8.2) 06/01/18 00:27 Albumin 3.8 g/dL (3.9-5) L 06/01/18 00:27 Albumin/Globulin Ratio 1.3 % 06/01/18 00:27
[2018-06-03] MEDS: TYLENOL PO PRN (12:02)
--- NOTE | 2018-06-03 13:28 | Progress Note ---
Subjective Date of service: 06/03/18 Interval history: Mario Garcia MD/ RRP (2-5-03), amos 6 - T2B) s/p aus - removed pump in past Sunday pt developed retention - spt placed discussed with pt & Dr. Hi urine clear today will set up cysto possible removal of cuff Objective - Constitutional Vitals: Vital Signs - 12hr 06/03/18 06/03/18 06/03/18 05:00 07:10 09:37 Temperature 98.7 F Pulse Rate 67 66 66 Pulse Rate [ Apical] Respiratory 18 Rate Blood Pressure 134/71 134/71 O2 Sat by Pulse 98 Oximetry 06/03/18 06/03/18 06/03/18 09:38 10:00 12:02 Temperature Pulse Rate 66 67 Pulse Rate [ 66 Apical] Respiratory 18 18 Rate Blood Pressure 134/71 O2 Sat by Pulse 98 Oximetry - Labs CBC & Chem 7: 06/02/18 04:48 06/01/18 00:27
[2018-06-03] MEDS: ZOSYN/NS 4.5GM/100ML 4.5 GM/100 ML VIAL IV SCH (13:33)
--- NOTE | 2018-06-03 17:09 | Progress Note ---
Assessment and Plan - Patient Problems (1) Preoperative cardiovascular examination Current Visit: Yes Status: Acute Plan to address problem: His history as previously detailed of small vessel coronary disease, and nonischemic cardiomyopathy with a cardiac defibrillator in situ. On this presentation, there was syncope which followed manipulation of a suprapubic catheter. Follow-up ICD interrogation was negative for cardiac tachycardia or bradycardia arrhythmia during the syncope. Also notably, an echocardiogram on this presentation demonstrates a left ventricular ejection fraction of 50%, consistent with a resolving cardiomyopathy. The patient was on Pradaxa prior to this admission, presumably for a history of paroxysmal atrial fibrillation. The Pradaxa has not been continued since she was admitted, and there has been no demonstrable atrial fibrillation on telemetry monitoring. He is okay to proceed with surgery, low to moderate cardiac risk. Okay for continued hold on oral anticoagulation through the perioperative period, and while he is at risk for continued hematuria. (2) Syncope Current Visit: Yes Status: Acute Plan to address problem: ICD interrogation was done and reported no cardiac events associated with his syncopal episodes. Syncope was likely vasovagal. (3) Nonischemic cardiomyopathy Current Visit: Yes Status: Acute Plan to address problem: The patient's nonischemic cardiomyopathy has undergone significant resolution since his last echocardiogram in July 2017. Current LV function estimate is about 50%. We'll continue medical therapy. (4) On continuous oral anticoagulation Current Visit: Yes Status: Acute Plan to address problem: The patient was on oral anticoagulation presumably for a history of paroxysmal atrial fibrillation. I do not see any specific documentation of paroxysmal atrial fibrillation on my extensive review of the hospital records, but we will request the outpatient records for further review. Pradaxa has been on hold since his presentation with hematuria associated with his bladder pathology. We'll continue to hold oral anticoagulation in anticipation of his planned bladder surgery. Subjective Date of service: 06/03/18 Interval history: The patient is comfortable, feels well, no cardiac complaints. He is planned for bladder surgery and cardiac preoperative assessment was requested. His history as previously detailed of small vessel coronary disease, and nonischemic cardiomyopathy with a cardiac defibrillator in situ. On this presentation, there was syncope which followed manipulation of a suprapubic catheter. Follow-up ICD interrogation was negative for cardiac tachycardia or bradycardia arrhythmia during the syncope. Also notably, an echocardiogram on this presentation demonstrates a left ventricular ejection fraction of 50%, consistent with a resolving cardiomyopathy. The patient was on Pradaxa prior to this admission, presumably for a history of paroxysmal atrial fibrillation. The Pradaxa has not been continued since she was admitted, and there has been no demonstrable atrial fibrillation on telemetry monitoring. Objective Vital Signs Temp Pulse Pulse Resp BP Pulse Ox 06/03/18 12:02 18 06/03/18 10:00 67 66 18 98 06/03/18 09:38 66 134/71 06/03/18 09:37 66 134/71 06/03/18 07:10 98.7 F 66 18 134/71 98 06/03/18 05:00 67 06/03/18 01:23 97.2 F L 65 16 123/61 99 06/02/18 22:06 67 123/55 06/02/18 22:00 68 65 100 06/02/18 21:37 20 06/02/18 20:37 18 06/02/18 19:04 98.8 F 64 16 105/52 98 - Physical Examination General: Appears Well, No Apparent Distress HEENT: Positive: PERRL Neck: Positive: neck supple Cardiac: Positive: Reg Rate and Rhythm Lungs: Positive: Decreased Breath Sounds Neuro: Positive: Grossly Intact Abdomen: Positive: Soft Skin: Positive: Clear Extremities: Absent: edema Pacemaker: ventricular pacing w/capt
--- NOTE | 2018-06-03 17:16 | Event Note ---
Date: 06/03/18 He is okay to proceed with bladder surgery, low to moderate cardiac risk. Okay for continued hold on oral anticoagulation through the perioperative period , and while he is at risk for continued hematuria.
[2018-06-04] MEDS: FLAGYL 500 MG/100 ML 500 MG/100 ML BAG IV SCH (00:29)
--- NOTE | 2018-06-04 07:32 | Progress Note ---
Assessment and Plan Assessment and plan: 77 year old male with past medical history significant for CAD, on pacemaker, BPH presented to the emergency department for episodes of syncope. Patient had suprapubic catheter earlier in the morning of day of admission. patient had bleeding from the catheter and admitted to the floor. - Cardiology consulted - Echo was done and EF of 55-60% improved from 30% - We will do ICD interrogation BPH status post suprapubic catheter - the catheter was clogged - Urology evaluated him and corrected Hypertension - Continue home medications Disposition - Patient will have cystoscopy on tomorrow History Interval history: Patient was seen and evaluated this morning, patient didn't have any complaints. Hospitalist Physical - Physical exam Narrative exam: Not in cardiopulmonary distress. The patient appeared well nourished and normally developed. Vital signs as documented. Head exam is unremarkable. No scleral icterus . Neck is without jugular venous distension, thyromegaly, or carotid bruits. Lungs are clear to auscultation. Cardiac exam reveals regular rate and Rhythm. First and second heart sounds normal. No murmurs, rubs or gallops. Abdominal exam reveals normal bowel sounds, no masses, no organomegaly and no aortic enlargement. Extremities are nonedematous and both femoral and pedal pulses are normal. suprapubic catheter in place, draining urine. RUG CUTTER HELPER: Alert and oriented 3. No focal weakness. - Constitutional Vitals: Temp Pulse Resp BP Pulse Ox 98.5 F 65 18 138/65 98 06/04/18 01:57 06/04/18 01:57 06/04/18 01:57 06/04/18 01:57 06/04/18 01:57 General appearance: Present: no acute distress Results - Labs CBC & Chem 7: 06/02/18 04:48 06/01/18 00:27 Labs: Laboratory Last Values WBC 7.0 K/mm3 (4.5-11.0) 06/02/18 04:48 RBC 3.92 M/mm3 (3.65-5.03) 06/02/18 04:48 Hgb 10.2 gm/dl (11.8-15.2) L 06/02/18 04:48 Hct 32.7 % (35.5-45.6) L 06/02/18 04:48 MCV 84 fl (84-94) 06/02/18 04:48 MCH 26 pg (28-32) L 06/02/18 04:48 MCHC 31 % (32-34) L 06/02/18 04:48 RDW 18.3 % (13.2-15.2) H 06/02/18 04:48 Plt Count 222 K/mm3 (140-440) 06/02/18 04:48 Add Manual Diff Complete 06/02/18 04:48 Total Counted 100 06/02/18 04:48 Seg Neuts % (Manual) 90.0 % (40.0-70.0) H 06/02/18 04:48 Band Neutrophils % 0 % 06/02/18 04:48 Lymphocytes % (Manual) 8.0 % (13.4-35.0) L 06/02/18 04:48 Reactive Lymphs % (Man) 0 % 06/02/18 04:48 Monocytes % (Manual) 2.0 % (0.0-7.3) 06/02/18 04:48 Eosinophils % (Manual) 0 % (0.0-4.3) 06/02/18 04:48 Basophils % (Manual) 0 % (0.0-1.8) 06/02/18 04:48 Metamyelocytes % 0 % 06/02/18 04:48 Myelocytes % 0 % 06/02/18 04:48 Promyelocytes % 0 % 06/02/18 04:48 Blast Cells % 0 % 06/02/18 04:48 Nucleated RBC % Not Reportable 06/02/18 04:48 Seg Neutrophils # Man 6.3 K/mm3 (1.8-7.7) 06/02/18 04:48 Band Neutrophils # 0.0 K/mm3 06/02/18 04:48 Lymphocytes # (Manual) 0.6 K/mm3 (1.2-5.4) L 06/02/18 04:48 Abs React Lymphs (Man) 0.0 K/mm3 06/02/18 04:48 Monocytes # (Manual) 0.1 K/mm3 (0.0-0.8) 06/02/18 04:48 Eosinophils # (Manual) 0.0 K/mm3 (0.0-0.4) 06/02/18 04:48 Basophils # (Manual) 0.0 K/mm3 (0.0-0.1) 06/02/18 04:48 Metamyelocytes # 0.0 K/mm3 06/02/18 04:48 Myelocytes # 0.0 K/mm3 06/02/18 04:48 Promyelocytes # 0.0 K/mm3 06/02/18 04:48 Blast Cells # 0.0 K/mm3 06/02/18 04:48 WBC Morphology Not Reportable 06/02/18 04:48 Hypersegmented Neuts Not Reportable 06/02/18 04:48 Hyposegmented Neuts Not Reportable 06/02/18 04:48 Hypogranular Neuts Not Reportable 06/02/18 04:48 Smudge Cells Not Reportable 06/02/18 04:48 Toxic Granulation Not Reportable 06/02/18 04:48 Toxic Vacuolation Not Reportable 06/02/18 04:48 Dohle Bodies Not Reportable 06/02/18 04:48 Pelger-Huet Anomaly Not Reportable 06/02/18 04:48 Juliana Rods Not Reportable 06/02/18 04:48 Platelet Estimate Appears normal 06/02/18 04:48 Clumped Platelets Not Reportable 06/02/18 04:48 Plt Clumps, EDTA Not Reportable 06/02/18 04:48 Large Platelets Not Reportable 06/02/18 04:48 Giant Platelets Not Reportable 06/02/18 04:48 Platelet Satelliting Not Reportable 06/02/18 04:48 Plt Morphology Comment Not Reportable 06/02/18 04:48 RBC Morphology Not Reportable 06/02/18 04:48 Dimorphic RBCs Not Reportable 06/02/18 04:48 Polychromasia Not Reportable 06/02/18 04:48 Hypochromasia 1+ 06/02/18 04:48 Poikilocytosis Not Reportable 06/02/18 04:48 Anisocytosis 1+ 06/02/18 04:48 Microcytosis Not Reportable 06/02/18 04:48 Macrocytosis Not Reportable 06/02/18 04:48 Spherocytes Not Reportable 06/02/18 04:48 Pappenheimer Bodies Not Reportable 06/02/18 04:48 Sickle Cells Not Reportable 06/02/18 04:48 Target Cells Not Reportable 06/02/18 04:48 Tear Drop Cells Not Reportable 06/02/18 04:48 Ovalocytes Few 06/02/18 04:48 Helmet Cells Not Reportable 06/02/18 04:48 [place] Bodies Not Reportable 06/02/18 04:48 [place] Rings Not Reportable 06/02/18 04:48 [place] Cells Not Reportable 06/02/18 04:48 Bite Cells Not Reportable 06/02/18 04:48 Crenated Cell Not Reportable 06/02/18 04:48 Elliptocytes Not Reportable 06/02/18 04:48 Acanthocytes (Spur) Not Reportable 06/02/18 04:48 Rouleaux Not Reportable 06/02/18 04:48 Hemoglobin C Crystals Not Reportable 06/02/18 04:48 Schistocytes Rare 06/02/18 04:48 Malaria parasites Not Reportable 06/02/18 04:48 [place] Bodies Not Reportable 06/02/18 04:48 Hem Pathologist Commnt No 06/02/18 04:48 PT 15.7 Sec. (12.2-14.9) H 06/01/18 00:27 INR 1.18 (0.87-1.13) H 06/01/18 00:27 Sodium 137 mmol/L (137-145) 06/01/18 00:27 Potassium 4.0 mmol/L (3.6-5.0) 06/01/18 00:27 Chloride 97.5 mmol/L (98-107) L 06/01/18 00:27 Carbon Dioxide 23 mmol/L (22-30) 06/01/18 00:27 Anion Gap 21 mmol/L 06/01/18 00:27 BUN 19 mg/dL (9-20) 06/01/18 00:27 Creatinine 1.3 mg/dL (0.8-1.5) 06/01/18 00:27 Estimated GFR > 60 ml/min 06/01/18 00:27 BUN/Creatinine Ratio 15 % 06/01/18 00:27 Glucose 146 mg/dL (75-100) H 06/01/18 00:27 Lactic Acid 1.80 mmol/L (0.7-2.0) 06/01/18 02:08 Calcium 9.2 mg/dL (8.4-10.2) 06/01/18 00:27 Total Bilirubin 0.90 mg/dL (0.1-1.2) 06/01/18 00:27 AST 28 units/L (5-40) 06/01/18 00:27 ALT 24 units/L (7-56) 06/01/18 00:27 Alkaline Phosphatase 31 units/L (35-129) L 06/01/18 00:27 Total Creatine Kinase 109 units/L (55-170) 06/01/18 12:12 CK-MB (CK-2) 3.1 ng/mL (0.0-4.0) 06/01/18 12:12 CK-MB (CK-2) Rel Index 2.8 (0-4) 06/01/18 12:12 Troponin T < 0.010 ng/mL (0.00-0.029) 06/01/18 12:12 Total Protein 6.8 g/dL (6.3-8.2) 06/01/18 00:27 Albumin 3.8 g/dL (3.9-5) L 06/01/18 00:27 Albumin/Globulin Ratio 1.3 % 06/01/18 00:27
[2018-06-04] MEDS: HCTZ PO SCH (10:19)
[2018-06-04] MEDS: COZAAR PO SCH (10:19)
[2018-06-04] MEDS: COREG PO SCH ×2 (10:19→21:40)
[2018-06-04] MEDS: DITROPAN PO SCH ×4 (10:20→21:40)
[2018-06-04] MEDS: NORVASC PO SCH (10:20)
--- NOTE | 2018-06-04 11:20 | Progress Note ---
Assessment and Plan Syncope Hematuria Nonischemic Cardiomyopathy echocardiogram this admission demonstrates a left ventricular ejection fraction of 50%, consistent with a resolving cardiomyopathy. Paroxysmal Afib on eliquis as an outpatient; currently on hold. 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 [place]) -normal function; no appropriate or inappropriate therapies on device interrogation. Hypertension Okay to proceed with surgery, low to moderate cardiac risk. Okay for continued hold on oral anticoagulation through the perioperative period , and while he is at risk for continued hematuria. Subjective Date of service: 06/04/18 Interval history: Patient has no cardiac complaints. Objective Vital Signs Temp Pulse Resp BP Pulse Ox 06/04/18 10:19 66 156/79 06/04/18 09:00 64 06/04/18 07:37 98.2 F 66 20 156/79 99 06/04/18 01:57 98.5 F 65 18 138/65 98 06/03/18 21:55 67 144/70 06/03/18 20:39 98.1 F 67 18 144/70 99 06/03/18 12:02 18 - Physical Examination General: Appears Well, No Apparent Distress HEENT: Positive: PERRL Cardiac: Positive: Other (paced) Lungs: Positive: Decreased Breath Sounds Neuro: Positive: Grossly Intact Extremities: Absent: edema Pacemaker: ventricular pacing w/capt
[2018-06-04] MEDS: TYLENOL PO PRN (12:59)
--- NOTE | 2018-06-04 17:40 | Progress Note ---
Subjective Date of service: 06/04/18 Interval history: Mario Garcia MD/ RRP (-02-14), amos 6 - T2B) s/p aus - removed pump in past Sunday pt developed retention - spt placed discussed with pt & Dr. Hi urine clear today will set up cysto possible removal of cuff - tomorrow (Sunday) NPO after MN Objective - Constitutional Vitals: Vital Signs - 12hr 06/04/18 06/04/18 06/04/18 07:37 09:00 10:00 Temperature 98.2 F Pulse Rate 66 64 64 Pulse Rate [ 66 Apical] Respiratory 20 Rate Blood Pressure 156/79 O2 Sat by Pulse 99 99 Oximetry 06/04/18 10:19 Temperature Pulse Rate 66 Pulse Rate [ Apical] Respiratory Rate Blood Pressure 156/79 O2 Sat by Pulse Oximetry - Labs CBC & Chem 7: 06/02/18 04:48 06/01/18 00:27
--- NOTE | 2018-06-04 19:18 | Anesthesia Consultation ---
Anesthesia Consult and Med Hx - Airway Anesthetic Teeth Evaluation: Poor ROM Head & Neck: Adequate Mental/Hyoid Distance: Adequate Mallampati Class: Class II Intubation Access Assessment: Probably Good - Pulmonary Exam CTA: No (decreased bilateral bases) - Cardiac Exam Cardiac Exam: RRR - Pre-Operative Health Status ASA Pre-Surgery Classification: ASA4 Proposed Anesthetic Plan: General - Pulmonary Hx Smoking: No Hx Respiratory Symptoms: No Hx Sleep Apnea: No (JR PRE SCREEN HIGH RISK) - Cardiovascular System Hx Hypertension: Yes Hx Coronary Artery Disease: Yes (small vessel) Hx Heart Attack/AMI: Yes (2014) Hx Cardia Arrhythmia: Yes (sick sinus syndrome; paroxysmal AFIB) Hx Pacemaker: Yes (2011: ) Hx Internal Defibrillator: Yes 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 Negative ICD interrogation. EF-50 %, improved from 30%. Cleared by Cardiology.
[2018-06-04] MEDS: ZETIA PO SCH ×2 (21:39→22:00)
[2018-06-05] MEDS: DITROPAN PO SCH ×3 (08:12→21:41)
--- NOTE | 2018-06-05 09:21 | Progress Note ---
Assessment and Plan Syncope Hematuria Nonischemic Cardiomyopathy echocardiogram this admission demonstrates a left ventricular ejection fraction of 50%, consistent with a resolving cardiomyopathy. Paroxysmal Afib on eliquis as an outpatient; currently on hold. Presence of LAPEL BASTER-D ([employer]) -normal function; no appropriate or inappropriate therapies on device interrogation. Hypertension Okay to proceed with surgery, low to moderate cardiac risk. Okay for continued hold on oral anticoagulation through the perioperative period , and while he is at risk for continued hematuria. Subjective Date of service: 06/05/18 Interval history: Patient is resting in bed comfortably. No interval changes. Urological surgery is planned for today. Objective Vital Signs Temp Pulse Pulse Resp BP BP Pulse Ox 06/05/18 08:30 98.8 F 63 16 143/60 97 06/05/18 08:26 63 16 97 06/05/18 07:52 98.8 F 63 16 143/60 97 06/05/18 02:18 98.6 F 18 136/67 06/05/18 00:55 64 06/04/18 22:00 18 99 06/04/18 21:40 139/68 06/04/18 20:04 98.4 F 18 139/68 06/04/18 20:00 68 99 06/04/18 10:19 66 156/79 06/04/18 10:00 64 66 99 - Physical Examination General: No Apparent Distress HEENT: Positive: PERRL Cardiac: Positive: Other (paced) Neuro: Positive: Grossly Intact Extremities: Absent: edema Pacemaker: ventricular pacing w/capt
[2018-06-05] MEDS: COREG PO SCH ×2 (10:15→21:40)
[2018-06-05] MEDS: NORVASC PO SCH (10:16)
[2018-06-05] MEDS: COZAAR PO SCH (10:16)
--- NOTE | 2018-06-05 11:13 | Progress Note ---
Assessment and Plan Assessment and plan: BPH status post suprapubic catheter - the catheter was clogged - Urology following Hypertension - Continue home medications CAD, pacemaker - Cardiology consulted - Echo was done and EF of 55-60% improved from 30% Disposition - Patient will have cystoscopy today History Interval history: 77 year old male with past medical history significant for CAD, on pacemaker, BPH presented to the emergency department for episodes of syncope. Patient had suprapubic catheter earlier in the morning on day of admission. Patient had bleeding from the catheter and admitted to the floor. Urology to perform cystoscopy today. Hospitalist Physical - Constitutional Vitals: Temp Pulse Resp BP Pulse Ox 98.8 F 67 16 143/60 97 06/05/18 08:30 06/05/18 10:00 06/05/18 10:00 06/05/18 08:30 06/05/18 10:00 General appearance: Present: no acute distress Results - Labs CBC & Chem 7: 06/02/18 04:48 06/01/18 00:27 Labs: Laboratory Last Values WBC 7.0 K/mm3 (4.5-11.0) 06/02/18 04:48 RBC 3.92 M/mm3 (3.65-5.03) 06/02/18 04:48 Hgb 10.2 gm/dl (11.8-15.2) L 06/02/18 04:48 Hct 32.7 % (35.5-45.6) L 06/02/18 04:48 MCV 84 fl (84-94) 06/02/18 04:48 MCH 26 pg (28-32) L 06/02/18 04:48 MCHC 31 % (32-34) L 06/02/18 04:48 RDW 18.3 % (13.2-15.2) H 06/02/18 04:48 Plt Count 222 K/mm3 (140-440) 06/02/18 04:48 Add Manual Diff Complete 06/02/18 04:48 Total Counted 100 06/02/18 04:48 Seg Neuts % (Manual) 90.0 % (40.0-70.0) H 06/02/18 04:48 Band Neutrophils % 0 % 06/02/18 04:48 Lymphocytes % (Manual) 8.0 % (13.4-35.0) L 06/02/18 04:48 Reactive Lymphs % (Man) 0 % 06/02/18 04:48 Monocytes % (Manual) 2.0 % (0.0-7.3) 06/02/18 04:48 Eosinophils % (Manual) 0 % (0.0-4.3) 06/02/18 04:48 Basophils % (Manual) 0 % (0.0-1.8) 06/02/18 04:48 Metamyelocytes % 0 % 06/02/18 04:48 Myelocytes % 0 % 06/02/18 04:48 Promyelocytes % 0 % 06/02/18 04:48 Blast Cells % 0 % 06/02/18 04:48 Nucleated RBC % Not Reportable 06/02/18 04:48 Seg Neutrophils # Man 6.3 K/mm3 (1.8-7.7) 06/02/18 04:48 Band Neutrophils # 0.0 K/mm3 06/02/18 04:48 Lymphocytes # (Manual) 0.6 K/mm3 (1.2-5.4) L 06/02/18 04:48 Abs React Lymphs (Man) 0.0 K/mm3 06/02/18 04:48 Monocytes # (Manual) 0.1 K/mm3 (0.0-0.8) 06/02/18 04:48 Eosinophils # (Manual) 0.0 K/mm3 (0.0-0.4) 06/02/18 04:48 Basophils # (Manual) 0.0 K/mm3 (0.0-0.1) 06/02/18 04:48 Metamyelocytes # 0.0 K/mm3 06/02/18 04:48 Myelocytes # 0.0 K/mm3 06/02/18 04:48 Promyelocytes # 0.0 K/mm3 06/02/18 04:48 Blast Cells # 0.0 K/mm3 06/02/18 04:48 WBC Morphology Not Reportable 06/02/18 04:48 Hypersegmented Neuts Not Reportable 06/02/18 04:48 Hyposegmented Neuts Not Reportable 06/02/18 04:48 Hypogranular Neuts Not Reportable 06/02/18 04:48 Smudge Cells Not Reportable 06/02/18 04:48 Toxic Granulation Not Reportable 06/02/18 04:48 Toxic Vacuolation Not Reportable 06/02/18 04:48 Dohle Bodies Not Reportable 06/02/18 04:48 Pelger-Huet Anomaly Not Reportable 06/02/18 04:48 Juliana Rods Not Reportable 06/02/18 04:48 Platelet Estimate Appears normal 06/02/18 04:48 Clumped Platelets Not Reportable 06/02/18 04:48 Plt Clumps, EDTA Not Reportable 06/02/18 04:48 Large Platelets Not Reportable 06/02/18 04:48 Giant Platelets Not Reportable 06/02/18 04:48 Platelet Satelliting Not Reportable 06/02/18 04:48 Plt Morphology Comment Not Reportable 06/02/18 04:48 RBC Morphology Not Reportable 06/02/18 04:48 Dimorphic RBCs Not Reportable 06/02/18 04:48 Polychromasia Not Reportable 06/02/18 04:48 Hypochromasia 1+ 06/02/18 04:48 Poikilocytosis Not Reportable 06/02/18 04:48 Anisocytosis 1+ 06/02/18 04:48 Microcytosis Not Reportable 06/02/18 04:48 Macrocytosis Not Reportable 06/02/18 04:48 Spherocytes Not Reportable 06/02/18 04:48 Pappenheimer Bodies Not Reportable 06/02/18 04:48 Sickle Cells Not Reportable 06/02/18 04:48 Target Cells Not Reportable 06/02/18 04:48 Tear Drop Cells Not Reportable 06/02/18 04:48 Ovalocytes Few 06/02/18 04:48 Helmet Cells Not Reportable 06/02/18 04:48 [place] Bodies Not Reportable 06/02/18 04:48 [place] Rings Not Reportable 06/02/18 04:48 [place] Cells Not Reportable 06/02/18 04:48 Bite Cells Not Reportable 06/02/18 04:48 Crenated Cell Not Reportable 06/02/18 04:48 Elliptocytes Not Reportable 06/02/18 04:48 Acanthocytes (Spur) Not Reportable 06/02/18 04:48 Rouleaux Not Reportable 06/02/18 04:48 Hemoglobin C Crystals Not Reportable 06/02/18 04:48 Schistocytes Rare 06/02/18 04:48 Malaria parasites Not Reportable 06/02/18 04:48 [place] Bodies Not Reportable 06/02/18 04:48 Hem Pathologist Commnt No 06/02/18 04:48 PT 15.7 Sec. (12.2-14.9) H 06/01/18 00:27 INR 1.18 (0.87-1.13) H 06/01/18 00:27 Sodium 137 mmol/L (137-145) 06/01/18 00:27 Potassium 4.0 mmol/L (3.6-5.0) 06/01/18 00:27 Chloride 97.5 mmol/L (98-107) L 06/01/18 00:27 Carbon Dioxide 23 mmol/L (22-30) 06/01/18 00:27 Anion Gap 21 mmol/L 06/01/18 00:27 BUN 19 mg/dL (9-20) 06/01/18 00:27 Creatinine 1.3 mg/dL (0.8-1.5) 06/01/18 00:27 Estimated GFR > 60 ml/min 06/01/18 00:27 BUN/Creatinine Ratio 15 % 06/01/18 00:27 Glucose 146 mg/dL (75-100) H 06/01/18 00:27 Lactic Acid 1.80 mmol/L (0.7-2.0) 06/01/18 02:08 Calcium 9.2 mg/dL (8.4-10.2) 06/01/18 00:27 Total Bilirubin 0.90 mg/dL (0.1-1.2) 06/01/18 00:27 AST 28 units/L (5-40) 06/01/18 00:27 ALT 24 units/L (7-56) 06/01/18 00:27 Alkaline Phosphatase 31 units/L (35-129) L 06/01/18 00:27 Total Creatine Kinase 109 units/L (55-170) 06/01/18 12:12 CK-MB (CK-2) 3.1 ng/mL (0.0-4.0) 06/01/18 12:12 CK-MB (CK-2) Rel Index 2.8 (0-4) 06/01/18 12:12 Troponin T < 0.010 ng/mL (0.00-0.029) 06/01/18 12:12 Total Protein 6.8 g/dL (6.3-8.2) 06/01/18 00:27 Albumin 3.8 g/dL (3.9-5) L 06/01/18 00:27 Albumin/Globulin Ratio 1.3 % 06/01/18 00:27
[2018-06-05] MEDS: HCTZ PO SCH (13:16)
[2018-06-05] MEDS ORDERED: CEREBYX 1,000 MG.PE in NACL 0.9% 100 ML IV ONE (13:30)
[2018-06-05] MEDS ORDERED: DIPRIVAN 10 MG/ML IV ONE (13:43)
[2018-06-05] MEDS ORDERED: XYLOCAINE MPF 2% ONE (13:43)
[2018-06-05] MEDS ORDERED: ROBINUL ONE ×2 (13:44→16:07)
[2018-06-05] MEDS ORDERED: ANCEF/STERILE WATER 2 GM/20 ML IV NR (14:30)
[2018-06-05] MEDS: NACL 0.9% 1000 ML 1,000 ML IV SCH ×2 (14:33→19:16)
[2018-06-05] MEDS ORDERED: AMIDATE IV ONE (14:55)
[2018-06-05] MEDS ORDERED: IOHEXOL IV ONE (15:23)
[2018-06-05] MEDS ORDERED: BLOXIVERZ ONE (16:07)
--- NOTE | 2018-06-05 16:28 | Post Operative Note ---
Date of procedure: 06/05/18 Pre-op diagnosis: urinary retention Post-op diagnosis: same Procedure: urethroscopy, urethrogram, cysto via spt, balloon dilation spt tract, cystogram , scrotal exploration & removal of foreign body (pt has indwelling spt 18F osage tip catheter) Anesthesia: GETA Surgeon: DIANA MCKAY Estimated blood loss: minimal Pathology: list (foreign body (tubing from aus)) Specimen disposition: to lab Condition: stable Disposition: PACU (home with suprapubic tube to bag tomorrow, cipro & norco on chart)
[2018-06-05] MEDS ORDERED: TORADOL IV PRN (16:45)
[2018-06-05] MEDS ORDERED: ZOFRAN IV PRN (16:45)
--- NOTE | 2018-06-05 16:47 | Post Anesthesia Evaluation ---
- Post Anesthesia Evaluation Patient Participated: Yes Airway Patent: Yes Stable Respiratory Function: Yes Nausea/Vomiting: No Temp > 96.8F: Yes Pain Manageable: Yes Adequeate Hydration: Yes Anesthesia Complications: No
[2018-06-05] MEDS: DILAUDID IV PRN ×2 (16:53→17:14)
--- NOTE | 2018-06-05 17:41 | Operative Report ---
PREOPERATIVE DIAGNOSIS: Urinary retention. POSTOPERATIVE DIAGNOSES: Urinary retention, scrotal foreign body. PROCEDURE: Ureteroscopy, urethrogram, cystoscopy via suprapubic tract, balloon dilatation of suprapubic tract, cystogram, scrotal exploration and removal of foreign body, exchange of suprapubic catheter (18-Ukrainian platinum tip catheter). SURGEON: Ayo Leary MD ANESTHESIA: General. ESTIMATED BLOOD LOSS: Minimal. FLUIDS: Crystalloid. COMPLICATIONS: No complications. INDICATIONS: This patient is a 78-year-old gentleman who is known to our service since 2002, status post retropubic prostatectomy, at that time was found to have Jaydon 6 adenocarcinoma of the prostate. His cancer has been undetectable. He also had a urinary sphincter placed years ago. The sphincter failed, replacement sphincter was performed. He did well for a while until the pump eroded requiring removal. The reservoir and urethral cuff were intact. He has been followed conservatively. We did not want to do any further surgery. However, he recently presented to the office, unable to urinate, attempts to place a Gan catheter were unsuccessful. Punch suprapubic catheter was placed in the office. The patient subsequently was lightheaded and presented to the Emergency Room where he was admitted to the hospital. Consultation was obtained. He presents now for further evaluation of his urethra. I had a long discussion regarding various options with the patient and his daughter. DESCRIPTION OF PROCEDURE: The patient was taken to the operative suite, placed in supine position. After adequate general anesthesia, placed in a dorsal lithotomy position, prepped and draped in a sterile fashion. Ureteroscopy was performed. No obvious cuff erosion could be appreciated; however, there was a stricture and at this point, did not want to dilate the stricture to run the risk of exposing cuff and requiring removal of the cuff. Urethrogram was performed, obvious bulbar stricture and dye was noted in the bladder. On inspection of the scrotum, a small piece of tubing could be appreciated. An incision was made over that and it was tracked as proximal as possible. The patient had dense scar in his perineum, removed about an inch of the tubing until it could not be palpated anymore. Copious irrigation was performed. No signs of infection. This area was left open. Next was attempts to evaluate his bladder. Wire was placed alongside of the 14-Ukrainian suprapubic catheter. The cystogram confirmed in good position. The Gan catheter was removed. Dilation set was used to dilate the tract with 16-Ukrainian balloon. Flexible cystoscopy was performed. There was a small amount of clot in the bladder, no tumors were noted or stones. An 18-Ukrainian platinum tip catheter was advanced over the wire. Cystogram confirmed good position. A 10 mL of sterile water was placed in the balloon and the catheter was secured into position with 2-0 silk. At this point, I did not want to further complicate things by trying to remove the cuff and run the risk of further damage to his urethra. No signs of infection could be appreciated. Copious irrigation was performed. Adequate hemostasis achieved. Dartos layer was closed in the scrotum with 2-0 Vicryl in a running fashion. Skin was closed with 2-0 chromic in interrupted fashion. The patient now has a 18-Ukrainian suprapubic catheter. I think it would be best that he manage long-term with his catheter. He was extubated and taken to recovery room. Fluffs and mesh pants were placed on the patient. He tolerated the procedure well. JOB# [id number] JEWELL/TINO
[2018-06-05] MEDS: ZETIA PO SCH (21:41)
[2018-06-05] MEDS: ZOSYN/NS 4.5GM/100ML 4.5 GM/100 ML VIAL IV SCH (21:42)
[2018-06-06] MEDS: TYLENOL PO PRN (04:18)
[2018-06-06] MEDS: NACL 0.9% 1000 ML 1,000 ML IV SCH (04:19)
--- NOTE | 2018-06-06 07:42 | Discharge Summary ---
Providers - Providers Date of Admission: 06/01/18 05:10 Date of discharge: 06/06/18 Attending physician: MARTINE ECKERT 06/01/18 00:03 Consult to Physician [CONS] Urgent Comment: called ans. serv/ spoke to niecy @0730/ cheo Consulting Provider: JAIME HOLLY Physician Instructions: Reason For Exam: syncope 06/01/18 00:27 Consult to Physician [CONS] Urgent Comment: called ans. serv. left mess. @0736 /cheo Consulting Provider: DIANA MCKAY Physician Instructions: Reason For Exam: post insertion bleeding Primary care physician: NUCLEAR MEDICINE SPECIALIST Hospitalization Reason for admission: syncope Condition: Good Hospital course: 77-year-old man admitted following 3 episodes of reported brief syncope which occurred at home. His syncopal episodes followed an emergency room visit for bleeding associated with an indwelling suprapubic catheter. Following manipulation of the suprapubic and discharge home, he returned several hours later with syncope. The patient's syncope was nonexertional, not associated with chest pain, shortness of breath or palpitations. He did not experience a defibrillator discharge. She was admitted to telemetry floor and ECG on presentation revealed a ventricular paced rhythm no acute changes. The patient was seen by cardiology in consultation. Cardiology felt that the syncope followed manipulation of the patient's suprapubic catheter, and was associated with nausea and dry heaves, suggesting a likely vasovagal reaction. The patient underwent ICD interrogation to rule out cardiac tachycardia or bradycardia arrhythmia which revealed no cardiac events associated with syncope. Cardiology cleared the patient for bladder surgery. The patient underwent neurology consultation and had ureteroscopy, urethrogram and cystoscopy. Also, patient had a cystogram and scrotal exploration with removal of foreign body. Urology felt the patient could go home with suprapubic tube and medications of ciprofloxacin and [place]. Dedicated discharge time 31 minutes. Disposition: TO HOME OR SELFCARE Time spent for discharge: 31 - Discharge Diagnoses (1) Nonischemic cardiomyopathy Status: Acute (2) Syncope Status: Acute (3) Encounter for care or replacement of suprapubic tube Status: Acute (4) Hypertension Status: Chronic Qualifiers: Hypertension type: essential hypertension Qualified Code(s): I10 - Essential (primary) hypertension (5) Pacemaker Status: Chronic Core Measure Documentation - Palliative Care Palliative Care/ Comfort Measures: Not Applicable - Core Measures Any of the following diagnoses?: none Exam - Constitutional Vitals: Temp Pulse Resp BP Pulse Ox 98.1 F 64 20 135/73 98 06/06/18 01:50 06/06/18 01:50 06/06/18 05:18 06/06/18 01:50 06/06/18 01:50 General appearance: Present: no acute distress, well-nourished - EENT Eyes: Present: PERRL ENT: hearing intact, clear oral mucosa - Neck Neck: Present: supple, normal ROM - Respiratory Respiratory effort: normal Respiratory: bilateral: CTA - Cardiovascular Heart Sounds: Present: S1 & S2. Absent: rub, click - Extremities Extremities: pulses symmetrical, No edema Peripheral Pulses: within normal limits - Abdominal General gastrointestinal: Present: soft, non-tender, non-distended, normal bowel sounds Male genitourinary: Present: normal - Integumentary Integumentary: Present: clear, warm, dry - Musculoskeletal Musculoskeletal: gait normal, strength equal bilaterally - Psychiatric Psychiatric: appropriate mood/affect, intact judgment & insight - Neurologic Neurologic: CNII-XII intact, moves all extremities Plan Activity: no restrictions Weight Bearing Status: Full Weight Bearing Diet: low fat, low cholesterol, low salt Wound: per your surgeon's advice Follow up with: PRIMARY CAREMD [Primary Care Provider] - 3-5 Days MAIRA TOBAR MD [Staff Physician] - 7 Days DIANA MCKAY MD [Staff Physician] - 7 Days Prescriptions: amLODIPine 5 mg PO DAILY #30 Carvedilol [Coreg] 25 mg PO BID #60 tablet HCTZ 25 mg PO DAILY #30 Losartan [Cozaar] 100 mg PO DAILY #30 tablet Mirabegron [Myrbetriq] 50 mg PO QDAY #30 tab.er.24h
--- NOTE | 2018-06-06 08:04 | Fluoroscopy Report ---
FLUOROSCOPY CYSTOGRAM STATIC FLUOROSCOPY RETROGRADE URETHROGRAM HISTORY: Urinary retention. FINDINGS: Fluoroscopy was provided by radiology during cystogram and retrograde urethrogram by urology. 6 fluoroscopic images were captured. The motors and generators inspector image demonstrates multiple surgical clips in both sides of the pelvis, correlate with surgical history. The procedural notes mention dilatation of the suprapubic catheter tract. A small amount of contrast agent is present within the bladder with no gross abnormality or extravasation. The retrograde urethrogram images demonstrate at least one high grade stricture measuring approximately 1 cm in the mid urethra. Please correlate with the procedural report as needed. IMPRESSION: Urethral stricture.
--- NOTE | 2018-06-06 08:04 | Fluoroscopy Report ---
FLUOROSCOPY CYSTOGRAM STATIC FLUOROSCOPY RETROGRADE URETHROGRAM HISTORY: Urinary retention. FINDINGS: Fluoroscopy was provided by radiology during cystogram and retrograde urethrogram by urology. 6 fluoroscopic images were captured. The polymer tester image demonstrates multiple surgical clips in both sides of the pelvis, correlate with surgical history. The procedural notes mention dilatation of the suprapubic catheter tract. A small amount of contrast agent is present within the bladder with no gross abnormality or extravasation. The retrograde urethrogram images demonstrate at least one high grade stricture measuring approximately 1 cm in the mid urethra. Please correlate with the procedural report as needed. IMPRESSION: Urethral stricture.
[2018-06-06 08:20] VITALS: BP 147/76
--- NOTE | 2018-06-06 08:36 | Progress Note ---
Assessment and Plan Syncope Hematuria Nonischemic Cardiomyopathy echocardiogram this admission demonstrates a left ventricular ejection fraction of 50%, consistent with a resolving cardiomyopathy. Paroxysmal Afib on eliquis as an outpatient; currently on hold. 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) -normal function; no appropriate or inappropriate therapies on device interrogation. Hypertension Continue medical therapy for nonischemic cardiomyopathy and paroxysmal afib Resume oral anticoagulation therapy with eliquis when ok with urology. Stable cardiac mack. Patient advised to keep his scheduled appt with [facility]. Subjective Date of service: 06/06/18 Interval history: Patient has no complaints. For planned discharge home today. Objective Vital Signs Temp Pulse Pulse Resp BP Pulse Ox 06/06/18 07:26 98.2 F 64 18 147/76 99 06/06/18 05:18 20 06/06/18 04:18 20 06/06/18 01:50 98.1 F 64 16 135/73 98 06/05/18 21:40 64 164/84 06/05/18 19:46 97.9 F 64 16 164/84 97 06/05/18 19:28 63 06/05/18 19:08 167/84 06/05/18 18:15 97.9 F 68 14 179/93 99 06/05/18 18:11 97.9 F 68 14 179/93 99 06/05/18 17:58 13 06/05/18 17:55 64 13 165/83 99 06/05/18 17:45 64 15 164/77 97 06/05/18 17:30 64 13 159/83 100 06/05/18 17:28 13 06/05/18 17:15 64 12 161/83 98 06/05/18 17:14 12 06/05/18 17:00 64 14 160/79 98 06/05/18 16:53 13 06/05/18 16:45 64 15 167/81 99 06/05/18 16:40 68 13 168/79 99 06/05/18 16:34 97.6 F 67 11 L 166/82 98 06/05/18 14:20 99.6 F 64 24 153/76 98 06/05/18 14:09 99.6 F 65 24 153/76 98 06/05/18 13:41 98.6 F 64 18 165/77 99 06/05/18 10:15 67 143/60 06/05/18 10:00 67 67 16 97 - Physical Examination General: No Apparent Distress HEENT: Positive: PERRL Cardiac: Positive: Other (paced) Neuro: Positive: Grossly Intact Extremities: Absent: edema Pacemaker: ventricular pacing w/capt
[2018-06-06] MEDS ORDERED: LEVAQUIN 500MG/100ML 500 MG/100 ML BAG IV SCH (10:00)
[2018-06-06] MEDS: NORVASC PO SCH (10:06)
[2018-06-06] MEDS: COZAAR PO SCH (10:06)
[2018-06-06] MEDS: COREG PO SCH (10:07)
[2018-06-06] MEDS: DITROPAN PO SCH (10:07)
[2018-06-06] MEDS: HCTZ PO SCH (10:07)
== END 2018-06-06 13:55 | disposition home or self-care (01) | DRG 654 ==
LOC: ED 23:27 → 2B-ACE 06-01 05:10
PROVIDERS: ADMIT Internal Medicine; ATTEND Hospitalist
PROC: 4B02XTZ Measurement of Cardiac Defibrillator, External Approach (ICD-10-PCS; 2018-06-02)
PROC: 0T7B8ZZ Dilation of Bladder, Via Natural or Artificial Opening Endoscopic (ICD-10-PCS; principal; 2018-06-05)
PROC: 0VC50ZZ Extirpation of Matter from Scrotum, Open Approach (ICD-10-PCS; 2018-06-05)
PROC: 0T2BX0Z Change Drainage Device in Bladder, External Approach (ICD-10-PCS; 2018-06-05)
PROC: BT1BYZZ Fluoroscopy of Bladder and Urethra using Other Contrast (ICD-10-PCS; 2018-06-05)
DX: T83.83XA Hemorrhage due to genitourinary prosthetic devices, implants and grafts, initial encounter (principal); I42.8 Other cardiomyopathies; N13.1 Hydronephrosis with ureteral stricture, not elsewhere classified; K57.92 Diverticulitis of intestine, part unspecified, without perforation or abscess without bleeding; R55 Syncope and collapse; I10 Essential (primary) hypertension; I25.10 Atherosclerotic heart disease of native coronary artery without angina pectoris; I48.0 Paroxysmal atrial fibrillation; Y84.6 Urinary catheterization as the cause of abnormal reaction of the patient, or of later complication, without mention of misadventure at the time of the procedure; N40.1 Benign prostatic hyperplasia with lower urinary tract symptoms; R33.8 Other retention of urine; N32.89 Other specified disorders of bladder; M19.90 Unspecified osteoarthritis, unspecified site; Z79.01 Long term (current) use of anticoagulants; I25.2 Old myocardial infarction; Z95.810 Presence of automatic (implantable) cardiac defibrillator; Z86.73 Personal history of transient ischemic attack (TIA), and cerebral infarction without residual deficits; Y92.89 Other specified places as the place of occurrence of the external cause; Z79.82 Long term (current) use of aspirin; Z79.899 Other long term (current) drug therapy; Z85.46 Personal history of malignant neoplasm of prostate
CPT/HCPCS: 36415; 51610; 70450; 74176; 74430; 74450; 80053; 82140; 82550; 82553; 84484; 85007; 85014; 85018; 85025; 85027; 85610; 87040; 88302; 93005; 93010; 93306; 96360; C1726; C1758; J0690; J1170; J1885; J1956; J2270; J2543; J2704; J2710; J7030; Q2009; Q9967

== ENCOUNTER 2018-06-10 10:19 | Inpatient (IN) | payer MEDICARE ==
--- NOTE | 2018-06-10 11:34 | Emergency Department Report ---
ED Syncope HPI - General Chief Complaint: Syncope Stated Complaint: LIGHT HEADED/WEAKNESS/LIGHT PAIN Time Seen by Provider: 06/10/18 11:33 Source: patient Exam Limitations: no limitations - History of Present Illness Initial Comments: Patient said that he passed out after using the toilet this morning. Timing/Prior Episodes: single episode today Precipitating Factors: Positive: lightheadedness Context: standing Loss of Consciousness: brief (seconds) Current Symptoms: back to normal - Related Data Allergies/Adverse Reactions: Allergies No Known Allergies Allergy (Verified 03/13/14 06:35) Home Medications: Ambulatory Orders Ezetimibe [Zetia] 10 mg PO DAILY #30 tablet 09/26/15 Aspirin EC [Aspirin Enteric Coated TAB] 81 mg PO DAILY 06/21/16 Apixaban [Eliquis] 5 mg PO BID 06/10/18 Carvedilol [Coreg] 12.5 mg PO BID 06/10/18 HYDROcodone/ACETAMINOPHEN [[place] 5-325 Tablet] 1 each PO Q6H PRN 06/10/18 Losartan [Cozaar] 50 mg PO DAILY 06/10/18 Nitrofurantoin Macrocrystal [Nitrofurantoin] 100 mg PO Q24H 06/10/18 Potassium Chloride [K-Dur] 10 meq PO DAILY 06/10/18 hydroCHLOROthiazide [HCTZ] 25 mg PO DAILY 06/10/18 ED Review of Systems ROS: Stated complaint: LIGHT HEADED/WEAKNESS/LIGHT PAIN Other details as noted in HPI Comment: All other systems reviewed and negative Constitutional: denies: chills, fever Eyes: denies: eye pain ENT: denies: ear pain, throat pain Respiratory: denies: cough, shortness of breath Cardiovascular: denies: chest pain, palpitations Endocrine: no symptoms reported Gastrointestinal: denies: abdominal pain, nausea, vomiting, diarrhea Genitourinary: denies: urgency, dysuria, frequency Musculoskeletal: denies: back pain Skin: denies: rash, lesions Neurological: weakness. denies: headache, numbness, paresthesias Psychiatric: denies: anxiety, depression Hematological/Lymphatic: denies: easy bleeding, easy bruising ED Past Medical Hx - Past Medical History Previous Medical History?: Yes Hx Hypertension: Yes Hx Heart Attack/AMI: Yes (2014) Hx Diabetes: No Hx Deep Vein Thrombosis: No Hx Liver Disease: No Hx Renal Disease: No Hx Arthritis: Yes Hx Kidney Stones: No Hx HIV: No Additional medical history: pacemaker - Surgical History Past Surgical History?: Yes Hx Pacemaker: Yes (2012: ) Hx Internal Defibrillator: Yes Additional Surgical History: prostate - Social History Smoking Status: Never Smoker Substance Use Type: None - Medications Home Medications: Home Medications Medication Instructions Recorded Confirmed Last Taken Type Ezetimibe [Zetia] 10 mg PO DAILY #30 tablet 09/26/15 06/10/18 08/02/17 18:00 Rx Aspirin EC [Aspirin Enteric Coated 81 mg PO DAILY 06/21/16 06/10/18 07/30/17 08: 00 History TAB] Apixaban [Eliquis] 5 mg PO BID 06/10/18 06/10/18 Unknown History Carvedilol [Coreg] 12.5 mg PO BID 06/10/18 06/10/18 Unknown History HYDROcodone/ACETAMINOPHEN [[place] 1 each PO Q6H PRN 06/10/18 06/10/18 Unknown History 5-325 Tablet] Losartan [Cozaar] 50 mg PO DAILY 06/10/18 06/10/18 Unknown History Nitrofurantoin Macrocrystal 100 mg PO Q24H 06/10/18 06/10/18 Unknown History [Nitrofurantoin] Potassium Chloride [K-Dur] 10 meq PO DAILY 06/10/18 06/10/18 Unknown History hydroCHLOROthiazide [HCTZ] 25 mg PO DAILY 06/10/18 06/10/18 Unknown History ED Physical Exam - General Limitations: No Limitations General appearance: alert, in no apparent distress - Head Head exam: Present: atraumatic, normocephalic, normal inspection - Eye Eye exam: Present: normal appearance, PERRL, EOMI Pupils: Present: normal accommodation - ENT ENT exam: Present: normal exam, normal orophraynx, mucous membranes moist - Neck Neck exam: Present: normal inspection, full ROM. Absent: tenderness - Respiratory Respiratory exam: Present: normal lung sounds bilaterally. Absent: respiratory distress, wheezes, rales, rhonchi, stridor - Cardiovascular Cardiovascular Exam: Present: regular rate, normal rhythm, normal heart sounds - GI/Abdominal GI/Abdominal exam: Present: soft, normal bowel sounds. Absent: distended, tenderness, guarding, rebound, rigid - Extremities Exam Extremities exam: Present: normal inspection, full ROM, normal capillary refill. Absent: tenderness - Back Exam Back exam: Present: normal inspection, full ROM. Absent: tenderness - Neurological Exam Neurological exam: Present: alert, oriented X3, CN II-XII intact - Psychiatric Psychiatric exam: Present: normal affect, normal mood - Skin Skin exam: Present: warm, dry, intact, normal color. Absent: rash ED Course Vital Signs 06/10/18 06/10/18 06/10/18 11:03 11:30 11:40 Temperature 97.5 F L Pulse Rate 70 64 67 Respiratory 16 15 Rate Blood Pressure 100/53 O2 Sat by Pulse 100 100 Oximetry 06/10/18 06/10/18 06/10/18 11:50 12:00 12:10 Temperature Pulse Rate 64 64 67 Respiratory 12 19 12 Rate Blood Pressure 97/59 97/59 O2 Sat by Pulse 100 99 98 Oximetry 06/10/18 06/10/18 06/10/18 12:20 12:30 12:40 Temperature Pulse Rate 67 64 67 Respiratory 17 16 25 H Rate Blood Pressure 127/74 127/74 127/74 O2 Sat by Pulse 99 98 96 Oximetry 06/10/18 06/10/18 06/10/18 13:28 13:30 13:40 Temperature Pulse Rate 65 64 64 Respiratory 14 17 25 H Rate Blood Pressure 127/74 127/74 127/74 O2 Sat by Pulse 98 97 98 Oximetry 06/10/18 06/10/18 06/10/18 13:50 14:00 14:10 Temperature Pulse Rate 64 64 64 Respiratory 10 L 11 L 15 Rate Blood Pressure 121/97 123/68 123/68 O2 Sat by Pulse 99 96 96 Oximetry 06/10/18 06/10/18 06/10/18 14:20 14:30 14:40 Temperature Pulse Rate 64 64 64 Respiratory 17 18 14 Rate Blood Pressure 123/68 129/71 129/71 O2 Sat by Pulse 97 99 97 Oximetry 06/10/18 06/10/18 06/10/18 14:50 15:00 15:10 Temperature Pulse Rate 64 64 67 Respiratory 16 10 L 14 Rate Blood Pressure 137/72 133/75 133/75 O2 Sat by Pulse 97 98 98 Oximetry 06/10/18 06/10/18 06/10/18 15:20 15:30 15:40 Temperature Pulse Rate 64 67 67 Respiratory 12 11 L 21 Rate Blood Pressure 133/75 153/81 153/81 O2 Sat by Pulse 99 98 97 Oximetry 06/10/18 06/10/18 06/10/18 15:50 16:00 16:10 Temperature Pulse Rate 67 67 64 Respiratory 14 15 17 Rate Blood Pressure 161/80 110/59 110/59 O2 Sat by Pulse 98 98 97 Oximetry 06/10/18 06/10/18 06/10/18 16:20 16:30 16:40 Temperature Pulse Rate 64 65 64 Respiratory 14 10 L 16 Rate Blood Pressure 111/60 109/59 109/59 O2 Sat by Pulse 97 98 97 Oximetry 06/10/18 06/10/18 06/10/18 16:50 17:00 18:24 Temperature 98.5 F Pulse Rate 64 64 64 Respiratory 18 12 18 Rate Blood Pressure 117/66 111/61 113/59 O2 Sat by Pulse 97 100 95 Oximetry - Reevaluation(s) Reevaluation #1: 06/10/18 20:29 I discussed patient care with the hospitalist on-call Dr. Xiong. He will admit patient to the hospital for further evaluation and management. ED Medical Decision Making - Lab Data Result diagrams: 06/10/18 11:44 06/10/18 11:44 - EKG Data -: EKG Interpreted by Or Rate: normal (64) - EKG Data When compared to previous EKG there are: previous EKG unavailable Interpretation: other (Ventricular paced rhythm.) - Radiology Data Radiology results: report reviewed, image reviewed - Medical Decision Making Syncope. Orthostatic Hypotension. Critical care attestation.: If time is entered above; I have spent that time in minutes in the direct care of this critically ill patient, excluding procedure time. ED Disposition Clinical Impression: Orthostatic hypotension Syncope Qualifiers: Syncope type: unspecified Qualified Code(s): R55 - Syncope and collapse Disposition: 09 OP ADMIT IP TO THIS HOSP Is pt being admited?: Yes Does the pt Need Aspirin: No Condition: Stable Time of Disposition: 14:22
[2018-06-10] MEDS ORDERED: NACL 0.9% 1000 ML 1,000 ML IV ONE ×2 (11:50→11:59)
[2018-06-10 12:05] LABS: Basophils % (Auto) 0.6 % (0.0-1.8); Eosinophils # (Auto) 0.1 K/mm3 (0.0-0.4); Eosinophils % (Auto) 1.2 % (0.0-4.3); Hematocrit 33.7 % (35.5-45.6); Hemoglobin 11.1 gm/dl (11.8-15.2); Lymphocytes # (Auto) 0.6 K/mm3 (1.2-5.4); Lymphocytes % (Auto) 8.9 % (13.4-35.0); Mean Corpuscular HGB Conc 33 % (32-34); Mean Corpuscular Hemoglobin 26 pg (28-32); Mean Corpuscular Volume 80 fl (84-94); Monocytes # (Auto) 0.6 K/mm3 (0.0-0.8); Monocytes % (Auto) 7.9 % (0.0-7.3); Platelet Count 360 K/mm3 (140-440); Red Blood Count 4.24 M/mm3 (3.65-5.03); Red Cell Distribution Width 17.1 % (13.2-15.2)
[2018-06-10 12:16] LABS: BUN/Creatinine Ratio 16; Blood Urea Nitrogen 18 mg/dL (9-20); Calcium 8.8 mg/dL (8.4-10.2); Hemolysis Index 0
[2018-06-10 12:25] LABS: Bilirubin,Urine NEG (Negative); Blood,Urine MOD (Negative); Color,Urine Amber (Yellow); Hyaline Casts,Urine 3 /LPF; Mucus,Urine 1+ /HPF
[2018-06-10 12:29] LABS: Albumin 3.2 g/dL (3.9-5); Bilirubin,Direct 0.2 mg/dL (0-0.2)
--- NOTE | 2018-06-10 12:35 | XRay Report ---
AP CHEST: HISTORY: Syncope The 3-lead cardiac device is unchanged since 04/14/17. Mild cardiomegaly has improved. The heart is borderline in size on today's exam. Normal pulmonary vascularity. The lungs are clear. The bony thorax is intact. IMPRESSION: Unremarkable AP chest.
[2018-06-10 12:49] LABS: INR 1.23 (0.87-1.13); Partial Thromboplastin Time 31.2 Sec. (24.2-36.6)
[2018-06-10] MEDS ORDERED: ROCEPHIN/NS 1 GM/50 ML 1 GM/50 ML BAG IV ONE (12:54)
[2018-06-10] MEDS ORDERED: NACL 0.9% 50 ML ONE (13:01)
--- NOTE | 2018-06-10 13:21 | Cat Scan Report ---
CT HEAD WITHOUT CONTRAST: HISTORY: Syncope. TECHNIQUE: Sequential 2.5mm CT images. COMPARISON: 06/01/18. FINDINGS: Cerebral Parenchyma: A focal chronic cortical infarct in the medial left frontal lobe measures 1.8 x 1.6 cm. Mild age appropriate cortical volume loss is noted. The remaining brain parenchyma is within normal limits. Normal merrill-white interface. Cerebellum: Large chronic infarct in the left cerebellum measuring up to 4.0 x 3 43 cm in axial plane appears unchanged since the previous exam. Brainstem: 5 mm chronic lacunar infarct in the right mariah is unchanged. Ventricles: Normal. Sella: Normal. Extra-axial spaces: Normal. Basal Cisterns: Normal. Intracranial Hemorrhage: None. Midline Shift: None. Calvarium: Normal. Sinuses: Normal. Mastoid Air Cells: Normal. Visualized Orbits: Normal. 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 No acute intracranial process is appreciated.
--- NOTE | 2018-06-10 13:24 | Cat Scan Report ---
CTA CHEST: HISTORY: Syncope, elevated d-dimer. COMPARISON: none. TECHNIQUE: Helical CT in 1.25mm intervals following IV contrast. Pulmonary embolus protocol. Sagittal and coronal reformatted images. Rotational MIP images. FINDINGS: Contrast bolus is satisfactory. No pulmonary embolus is identified. Thyroid gland: Normal. Tracheobronchial tree: Normal. Esophagus: Normal. Heart: Mild cardiomegaly is evident. A 3-lead cardiac device is present. Pericardium: Normal. Mediastinum: Normal. Lung Azul: Normal. Pleural Spaces: Small bilateral layering pleural effusions are identified. Musculoskeletal: Intact. IMPRESSION: No evidence for pulmonary embolus. CHF.
--- NOTE | 2018-06-10 16:55 | History and Physical Report ---
History of Present Illness Chief complaint: I think i passed out History of present illness: 78 YO Male with HTN, Prostate Cancer, Atrial Fib on Therapeutic Anticoagulation , Nonischemic Cardiomyopathy presents to ED for evaluation. Pt states that he was in his usual state of health until this morning. Pt stated that he felt weak upon waking. Pt subsequently ambulated to the restroom to empty his reid leg bag. Pt states that he got dizzy and went down one one knee, and dropped his reid leg bag onto the floor. Pt states when he got himself together he called his daughter for assistance. EMS notified, and patient was found to be confused. Pt transported to [facility] for further care and evaluation. Pt seen and evaluated in ED and found to have Presyncope. Pt admitted to [facility] unit. Pt denies head trauma, fall to the floor, seizure, vertigo, palpitations, productive cough, or recent ill contacts. Past History Past Medical History: acute NE, arthritis, hypertension Past Surgical History: Other (Pacemaker) Social history: . denies: smoking, alcohol abuse, prescription drug abuse Family history: hypertension Medications and Allergies Allergies Allergy/AdvReac Type Severity Reaction Status Date / Time No Known Allergies Allergy Verified 03/13/14 06:35 Home Medications Medication Instructions Recorded Confirmed Last Taken Type Ezetimibe [Zetia] 10 mg PO DAILY #30 tablet 09/26/15 06/10/18 08/02/17 18:00 Rx Aspirin EC [Aspirin Enteric Coated 81 mg PO DAILY 06/21/16 06/10/18 07/30/17 08: 00 History TAB] Apixaban [Eliquis] 5 mg PO BID 06/10/18 06/10/18 Unknown History Carvedilol [Coreg] 12.5 mg PO BID 06/10/18 06/10/18 Unknown History HYDROcodone/ACETAMINOPHEN [[place] 1 each PO Q6H PRN 06/10/18 06/10/18 Unknown History 5-325 Tablet] Losartan [Cozaar] 50 mg PO DAILY 06/10/18 06/10/18 Unknown History Nitrofurantoin Macrocrystal 100 mg PO Q24H 06/10/18 06/10/18 Unknown History [Nitrofurantoin] Potassium Chloride [K-Dur] 10 meq PO DAILY 06/10/18 06/10/18 Unknown History hydroCHLOROthiazide [HCTZ] 25 mg PO DAILY 06/10/18 06/10/18 Unknown History Review of Systems Constitutional: weakness, no weight loss, no weight gain, no fever Ears, nose, mouth and throat: no ear pain, no ear discharge, no tinnitis, no decreased hearing, no nose pain Cardiovascular: no chest pain, no orthopnea, no palpitations, no rapid/ irregular heart beat Respiratory: no cough, no cough with sputum, no excessive sputum, no hemoptysis Gastrointestinal: no nausea, no vomiting, no diarrhea, no constipation Genitourinary Male: no hematuria, no flank pain, no discharge, no urinary frequency, no urinary hesitancy Rectal: no pain, no incontinence, no bleeding Musculoskeletal: no neck stiffness, no neck pain, no shooting arm pain, no arm numbness/tingling, no low back pain, no shooting leg pain Integumentary: no rash, no pruritis, no redness, no sores, no wounds Neurological: no paralysis, no weakness, no parathesias, no numbness, no tingling Psychiatric: no anxiety, no memory loss, no change in sleep habits, no sleep disturbances, no insomnia, no hypersomnia Endocrine: no cold intolerance, no heat intolerance, no polyphagia, no excessive thirst, no polydipsia, no polyuria Hematologic/Lymphatic: no easy bruising, no easy bleeding, no lymphadenopathy, no lymphedema Allergic/Immunologic: no urticaria, no allergic rhinitis, no wheezing, no persistent infections, no anaphylaxis Exam - Constitutional Vitals: Temp Pulse Resp BP Pulse Ox 97.5 F L 70 16 100/53 100 06/10/18 11:03 06/10/18 11:03 06/10/18 11:03 06/10/18 11:03 06/10/18 11:03 General appearance: Present: no acute distress, well-nourished - EENT Eyes: Present: PERRL ENT: hearing intact, clear oral mucosa - Neck Neck: Present: supple, normal ROM - Respiratory Respiratory effort: normal Respiratory: bilateral: CTA - Cardiovascular Heart Sounds: Present: S1 & S2. Absent: rub, click - Extremities Extremities: pulses symmetrical, No edema Peripheral Pulses: within normal limits - Abdominal General gastrointestinal: Present: soft, non-tender, non-distended, normal bowel sounds Male genitourinary: Present: normal - Integumentary Integumentary: Present: clear, warm, dry - Musculoskeletal Musculoskeletal: gait normal, strength equal bilaterally - Psychiatric Psychiatric: appropriate mood/affect, intact judgment & insight - Neurologic Neurologic: CNII-XII intact, moves all extremities Results - Labs CBC & Chem 7: 06/10/18 11:44 06/10/18 11:44 Labs: Abnormal lab results 06/10/18 06/10/18 06/10/18 Range/Units 11:09 11:44 11:44 Hgb 11.1 L (11.8-15.2) gm/dl Hct 33.7 L (35.5-45.6) % MCV 80 L (84-94) fl MCH 26 L (28-32) pg RDW 17.1 H (13.2-15.2) % Lymph % (Auto) 8.9 L (13.4-35.0) % [place] % (Auto) 7.9 H (0.0-7.3) % Lymph # 0.6 L (1.2-5.4) K/mm3 Seg Neutrophils % 81.4 H (40.0-70.0) % PT (12.2-14.9) Sec. INR (0.87-1.13) D-Dimer (0-234) ng/mlDDU Sodium 136 L (137-145) mmol/L Chloride 97.0 L (98-107) mmol/L Glucose 188 H (75-100) mg/dL POC Glucose 140 H (70-105) Alkaline Phosphatase (35-129) units/L NT-Pro-B Natriuret Pep (0-900) pg/mL Albumin (3.9-5) g/dL Urine WBC (Auto) (0.0-6.0) /HPF 06/10/18 06/10/18 06/10/18 Range/Units 12:00 12:00 12:00 Hgb (11.8-15.2) gm/dl Hct (35.5-45.6) % MCV (84-94) fl MCH (28-32) pg RDW (13.2-15.2) % Lymph % (Auto) (13.4-35.0) % [place] % (Auto) (0.0-7.3) % Lymph # (1.2-5.4) K/mm3 Seg Neutrophils % (40.0-70.0) % PT 16.0 H (12.2-14.9) Sec. INR 1.23 H (0.87-1.13) D-Dimer 5214 H (0-234) ng/mlDDU Sodium (137-145) mmol/L Chloride (98-107) mmol/L Glucose (75-100) mg/dL POC Glucose (70-105) Alkaline Phosphatase 30 L (35-129) units/L NT-Pro-B Natriuret Pep 1356 H (0-900) pg/mL Albumin 3.2 L (3.9-5) g/dL Urine WBC (Auto) (0.0-6.0) /HPF 06/10/18 Range/Units 12:13 Hgb (11.8-15.2) gm/dl Hct (35.5-45.6) % MCV (84-94) fl MCH (28-32) pg RDW (13.2-15.2) % Lymph % (Auto) (13.4-35.0) % [place] % (Auto) (0.0-7.3) % Lymph # (1.2-5.4) K/mm3 Seg Neutrophils % (40.0-70.0) % PT (12.2-14.9) Sec. INR (0.87-1.13) D-Dimer (0-234) ng/mlDDU Sodium (137-145) mmol/L Chloride (98-107) mmol/L Glucose (75-100) mg/dL POC Glucose (70-105) Alkaline Phosphatase (35-129) units/L NT-Pro-B Natriuret Pep (0-900) pg/mL Albumin (3.9-5) g/dL Urine WBC (Auto) 140.0 H (0.0-6.0) /HPF Assessment and Plan - Patient Problems (1) Pre-syncope Current Visit: Yes Status: Acute Plan to address problem: CT head, neuro checks, IVF resuscitation, orthostatic blood pressure measurements, fall precautions, aspiration precautions, seizure precautions, EEG , fall precautions (2) Hypertension Current Visit: No Status: Chronic Qualifiers: Hypertension type: essential hypertension Qualified Code(s): I10 - Essential (primary) hypertension Plan to address problem: Monitor BP q shift, continue medical management (3) Atrial fibrillation Current Visit: Yes Status: Acute Qualifiers: Atrial fibrillation type: persistent Qualified Code(s): I48.1 - Persistent atrial fibrillation Plan to address problem: continue therapeutic anticoagulation, supportive care. (4) DVT prophylaxis Current Visit: Yes Status: Acute Plan to address problem: scd to ble while in bed.
[2018-06-10] MEDS ORDERED: PROVENTIL IH PRN (16:58)
[2018-06-10] MEDS ORDERED: SODIUM CHLORIDE FLUSH SYRINGE 10 ML IV PRN (16:58)
[2018-06-10] MEDS ORDERED: TYLENOL PO PRN (16:58)
[2018-06-10] MEDS ORDERED: ZOFRAN IV PRN (16:58)
[2018-06-10] MEDS ORDERED: NORCO 5/325 PO PRN (19:45)
[2018-06-10] MEDS ORDERED: NITROFURANTOIN MACROCRYSTAL 100 MG PO SCH (19:45)
[2018-06-10] MEDS: COREG PO SCH (22:29)
[2018-06-10] MEDS: ELIQUIS PO SCH (22:30)
[2018-06-10] MEDS: MACROBID PO SCH (22:30)
[2018-06-10] MEDS: SODIUM CHLORIDE FLUSH SYRINGE 10 ML IV SCH (22:31)
[2018-06-11] MEDS: COREG PO SCH ×2 (09:28→21:59)
[2018-06-11] MEDS: SODIUM CHLORIDE FLUSH SYRINGE 10 ML IV SCH ×2 (09:28→21:59)
[2018-06-11] MEDS: COZAAR PO SCH (09:29)
[2018-06-11] MEDS: K-DUR PO SCH (09:30)
[2018-06-11] MEDS: ELIQUIS PO SCH ×2 (09:30→22:00)
[2018-06-11] MEDS: HALFPRIN EC PO SCH (09:30)
[2018-06-11] MEDS: HCTZ PO SCH (09:30)
[2018-06-11] MEDS: ZETIA PO SCH (09:36)
--- NOTE | 2018-06-11 15:00 | Progress Note ---
Assessment and Plan Assessment and plan: Pre-syncope/Syncope CT head, neuro checks, IVF resuscitation, orthostatic blood pressure measurements, fall precautions, aspiration precautions, seizure precautions, EEG , fall precautions. Etiology likely secondary to orthostasis vs vasovagal. Hypertension Monitor BP q shift, continue medical management Atrial fibrillation continue therapeutic anticoagulation, supportive care. DVT prophylaxis scd to ble while in bed. History Interval history: no new issues Hospitalist Physical - Constitutional Vitals: Temp Pulse Resp BP Pulse Ox 98.2 F 64 18 128/61 99 06/11/18 07:41 06/11/18 10:00 06/11/18 07:41 06/11/18 09:29 06/11/18 07:41 General appearance: Present: no acute distress, well-nourished - EENT Eyes: Present: PERRL, EOM intact ENT: hearing intact, clear oral mucosa, dentition normal - Neck Neck: Present: supple, normal ROM - Respiratory Respiratory effort: normal Respiratory: bilateral: CTA - Cardiovascular Rhythm: regular Heart Sounds: Present: S1 & S2. Absent: gallop, rub - Extremities Extremities: no ischemia, No edema, Full ROM - Abdominal General gastrointestinal: soft, non-tender, non-distended, normal bowel sounds - Integumentary Integumentary: Present: clear, warm, dry - Neurologic Neurologic: CNII-XII intact, moves all extremities Results - Labs CBC & Chem 7: 06/10/18 11:44 06/10/18 11:44 Labs: Laboratory Last Values WBC 7.3 K/mm3 (4.5-11.0) 06/10/18 11:44 RBC 4.24 M/mm3 (3.65-5.03) 06/10/18 11:44 Hgb 11.1 gm/dl (11.8-15.2) L 06/10/18 11:44 Hct 33.7 % (35.5-45.6) L 06/10/18 11:44 MCV 80 fl (84-94) L 06/10/18 11:44 MCH 26 pg (28-32) L 06/10/18 11:44 MCHC 33 % (32-34) 06/10/18 11:44 RDW 17.1 % (13.2-15.2) H 06/10/18 11:44 Plt Count 360 K/mm3 (140-440) 06/10/18 11:44 Lymph % (Auto) 8.9 % (13.4-35.0) L 06/10/18 11:44 [place] % (Auto) 7.9 % (0.0-7.3) H 06/10/18 11:44 Eos % (Auto) 1.2 % (0.0-4.3) 06/10/18 11:44 Baso % (Auto) 0.6 % (0.0-1.8) 06/10/18 11:44 Lymph # 0.6 K/mm3 (1.2-5.4) L 06/10/18 11:44 [place] # 0.6 K/mm3 (0.0-0.8) 06/10/18 11:44 Eos # 0.1 K/mm3 (0.0-0.4) 06/10/18 11:44 Baso # 0.0 K/mm3 (0.0-0.1) 06/10/18 11:44 Seg Neutrophils % 81.4 % (40.0-70.0) H 06/10/18 11:44 Seg Neutrophils # 5.9 K/mm3 (1.8-7.7) 06/10/18 11:44 PT 16.0 Sec. (12.2-14.9) H 06/10/18 12:00 INR 1.23 (0.87-1.13) H 06/10/18 12:00 APTT 31.2 Sec. (24.2-36.6) 06/10/18 12:00 D-Dimer 5214 ng/mlDDU (0-234) H 06/10/18 12:00 Sodium 136 mmol/L (137-145) L 06/10/18 11:44 Potassium 3.9 mmol/L (3.6-5.0) 06/10/18 11:44 Chloride 97.0 mmol/L (98-107) L 06/10/18 11:44 Carbon Dioxide 26 mmol/L (22-30) 06/10/18 11:44 Anion Gap 17 mmol/L 06/10/18 11:44 BUN 18 mg/dL (9-20) 06/10/18 11:44 Creatinine 1.1 mg/dL (0.8-1.5) 06/10/18 11:44 Estimated GFR > 60 ml/min 06/10/18 11:44 BUN/Creatinine Ratio 16 % 06/10/18 11:44 Glucose 188 mg/dL (75-100) H 06/10/18 11:44 POC Glucose 140 (70-105) H 06/10/18 11:09 Calcium 8.8 mg/dL (8.4-10.2) 06/10/18 11:44 Total Bilirubin 0.80 mg/dL (0.1-1.2) 06/10/18 12:00 Direct Bilirubin 0.2 mg/dL (0-0.2) 06/10/18 12:00 Indirect Bilirubin 0.6 mg/dL 06/10/18 12:00 AST 24 units/L (5-40) 06/10/18 12:00 ALT 24 units/L (7-56) 06/10/18 12:00 Alkaline Phosphatase 30 units/L (35-129) L 06/10/18 12:00 Troponin T < 0.010 ng/mL (0.00-0.029) 06/10/18 16:52 NT-Pro-B Natriuret Pep 1356 pg/mL (0-900) H 06/10/18 12:00 Total Protein 6.7 g/dL (6.3-8.2) 06/10/18 12:00 Albumin 3.2 g/dL (3.9-5) L 06/10/18 12:00 Albumin/Globulin Ratio 0.9 % 06/10/18 12:00 Urine Color [place] (Yellow) 06/10/18 12:13 Urine Turbidity Cloudy (Clear) 06/10/18 12:13 Urine pH 6.0 (5.0-7.0) 06/10/18 12:13 Ur Specific [place] 1.016 (1.003-1.030) 06/10/18 12:13 Urine Protein 100 mg/dl mg/dL (Negative) 06/10/18 12:13 Urine Glucose (UA) Neg mg/dL (Negative) 06/10/18 12:13 Urine Ketones Neg mg/dL (Negative) 06/10/18 12:13 Urine Blood Mod (Negative) 06/10/18 12:13 Urine Nitrite Neg (Negative) 06/10/18 12:13 Urine Bilirubin Neg (Negative) 06/10/18 12:13 Urine Urobilinogen 2.0 mg/dL (<2.0) 06/10/18 12:13 Ur Leukocyte Esterase Lg (Negative) 06/10/18 12:13 Urine WBC (Auto) 140.0 /HPF (0.0-6.0) H 06/10/18 12:13 Urine RBC (Auto) 23.0 /HPF (0.0-6.0) 06/10/18 12:13 U Epithel Cells (Auto) 2.0 /HPF (0-13.0) 06/10/18 12:13 Hyaline Casts 3 /LPF 06/10/18 12:13 Urine Mucus 1+ /HPF 06/10/18 12:13
[2018-06-11] MEDS: MACROBID PO SCH (21:57)
[2018-06-12] MEDS: K-DUR PO SCH (09:20)
[2018-06-12] MEDS: ZETIA PO SCH (09:20)
[2018-06-12] MEDS: ELIQUIS PO SCH (09:20)
[2018-06-12] MEDS: COZAAR PO SCH (09:20)
[2018-06-12] MEDS: HALFPRIN EC PO SCH (09:20)
[2018-06-12] MEDS: COREG PO SCH (09:21)
[2018-06-12] MEDS: SODIUM CHLORIDE FLUSH SYRINGE 10 ML IV SCH (09:21)
[2018-06-12] MEDS: HCTZ PO SCH (09:21)
[2018-06-12 13:57] VITALS: BP 113/52
--- NOTE | 2018-06-12 14:00 | Discharge Summary ---
Providers - Providers Date of Admission: 06/10/18 16:58 Attending physician: ARTUR RODRIGUEZ MD Primary care physician: NOVELTY [employer] Hospitalization Reason for admission: Autonomic dysequilibrium Condition: Stable Disposition: DC-01 TO HOME OR SELFCARE Time spent for discharge: 34 minutes - Discharge Diagnoses (1) Atrial fibrillation Status: Acute Qualifiers: Atrial fibrillation type: persistent Qualified Code(s): I48.1 - Persistent atrial fibrillation (2) Orthostatic hypotension Status: Acute (3) Pre-syncope Status: Acute (4) Encounter for care or replacement of suprapubic tube Status: Acute (5) Nonischemic cardiomyopathy Status: Acute (6) Hx of sick sinus syndrome Status: Chronic (7) Hypertension Status: Chronic Qualifiers: Hypertension type: essential hypertension Qualified Code(s): I10 - Essential (primary) hypertension (8) Pacemaker Status: Chronic Core Measure Documentation - Palliative Care Palliative Care/ Comfort Measures: Not Applicable - Core Measures Any of the following diagnoses?: none, history only (CHF) Exam - Physical Exam Narrative exam: Not in cardiopulmonary distress. The patient appeared well nourished and normally developed. Vital signs as documented. Head exam is unremarkable. No scleral icterus . Neck is without jugular venous distension, thyromegaly, or carotid bruits. Lungs are clear to auscultation. Cardiac exam reveals regular rate and Rhythm. First and second heart sounds normal. No murmurs, rubs or gallops. Abdominal exam reveals normal bowel sounds, no masses, no organomegaly and no aortic enlargement. Extremities are nonedematous and both femoral and pedal pulses are normal. 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 No focal weakness. - Constitutional Vitals: Temp Pulse Resp BP Pulse Ox 98.4 F 67 18 113/52 99 06/12/18 13:26 06/12/18 13:26 06/12/18 13:26 06/12/18 13:26 06/12/18 13:26 Plan Activity: no restrictions Weight Bearing Status: Full Weight Bearing Diet: low cholesterol Additional Instructions: F/u at [facility] in 1-2 weeks Follow up with: ALISSA VALERO MD [Primary Care Provider] - 3-5 Days MAIRA TOBAR MD [Staff Physician] - 14 Days
== END 2018-06-12 14:45 | disposition home or self-care (01) | DRG 312 ==
LOC: ED 10:19 → 2B-ACE 16:58
PROVIDERS: ADMIT Internal Medicine; ATTEND Internal Medicine
DX: R55 Syncope and collapse (principal); I48.1 Persistent atrial fibrillation; I42.8 Other cardiomyopathies; I95.1 Orthostatic hypotension; I10 Essential (primary) hypertension; M19.90 Unspecified osteoarthritis, unspecified site; Z85.46 Personal history of malignant neoplasm of prostate; Z95.0 Presence of cardiac pacemaker; Z79.01 Long term (current) use of anticoagulants; I25.2 Old myocardial infarction; Z82.49 Family history of ischemic heart disease and other diseases of the circulatory system; Z79.899 Other long term (current) drug therapy
CPT/HCPCS: 36415; 70450; 71045; 71275; 80048; 80074; 81001; 82962; 83880; 84484; 85025; 85379; 85610; 85730; 87086; 93005; 93010; 95819; J0696; J3246; J7030; Q9967

== ENCOUNTER 2019-04-18 09:55 | Outpatient (CLI) | payer MEDICARE ==
[2019-04-18 10:33] LABS: Blood Urea Nitrogen 15 mg/dL (9-20)
--- NOTE | 2019-04-18 12:32 | Cat Scan Report ---
CT PELVIS WITH AND WITHOUT CONTRAST HISTORY: Malignant neoplasm of prostate, patient complains of burning during urination and scrotum sw elling for 3 weeks COMPARISON: CT abdomen pelvis without contrast report dated 06/01/2018. The images are not available. TECHNIQUE: CT images of the pelvis were obtained prior to and following administration of intravenous contrast. All CT scans at this location are performed using CT dose reduction for ALARA by means of automated exposure control. CONTRAST: 100 ml of Omnipaque 300 FINDINGS: Lymphatics: No lymphadenopathy. Visualized Bowel/Peritoneum: Visualized portions demonstrate no significant abnormality. Appendix not visualized. No free air. No free fluid. : A suprapubic catheter is in place. There is mild diffuse bladder wall thickening or trabeculation . A cystitis could be considered. There also appears to be a penile implant device of some sort. The tubing of the device appears discontinuous. There is a small fluid collection with a thick wall surro unding the proximal portion of the device in the right side of the pelvis measuring 4.2 x 3.5 cm. Thi s collection exerts mass effect on the right side of the bladder. There is also a second small fluid collection at the base of the phallus measuring 2.1 x 1.1 cm. The clinical significance of these binh ections are unclear but abscess is difficult to exclude. The prostate gland has been surgically remov ed. Borderline bilateral inguinal lymph nodes are noted. No bulky adenopathy. Osseous Structures: No significant abnormality. Additional Findings: None IMPRESSION: Mild diffuse bladder wall thickening which could represent cystitis or trabeculation of the bladder w all. A suprapubic catheter is in good position. An unspecified penile device is identified which appears abnormal. There are 2 fluid collections near the proximal and distal ends of this device. Tubing of the device appears discontinuous. Please dawn elate with the patient's history and presentation. My concern is for small abscesses. Signer Name: Jon Arboleda Jr, MD Signed: 04/18/2019 12:27 PM Workstation Name: [id number]
== END 2019-04-18 09:56 | disposition home or self-care (01) ==
LOC: CT 09:55
PROVIDERS: ATTEND Urology
DX: C61 Malignant neoplasm of prostate (principal); R33.8 Other retention of urine; I10 Essential (primary) hypertension; E78.00 Pure hypercholesterolemia, unspecified
CPT/HCPCS: 36415; 72194; 82565; 84520; Q9967

== ENCOUNTER 2019-09-15 11:53 | Outpatient (CLI) | payer MEDICARE ==
--- NOTE | 2019-09-15 12:56 | XRay Report ---
BONE SURVEY METASTATIC HISTORY: Monoclonal gammopathy COMPARISON: None. TECHNIQUE: 17 views of the axial and central appendicular skeleton obtained. FINDINGS: Skull: No suspicious lytic or sclerotic osseous lesions. Cervical spine: No suspicious lytic or sclerotic osseous lesions. Chest and Ribs: No suspicious lytic or sclerotic osseous lesions. Humeri and femurs: No suspicious lytic or sclerotic osseous lesions. Thoracic and lumbar spine: No suspicious lytic or sclerotic osseous lesions. Pelvis: No suspicious lytic or sclerotic osseous lesions. Additional findings: None. IMPRESSION: 1. No radiographic evidence of monoclonal gammopathy, multiple myeloma or osseous metastatic involvem ent of the skeleton. Signer Name: Grayson Maria MD Signed: 09/15/2019 12:52 PM Workstation Name: [id number]
== END 2019-09-15 11:54 | disposition home or self-care (01) ==
LOC: XRAY 11:53
PROVIDERS: ATTEND Internal Medicine Hematology & Oncology
DX: D47.2 Monoclonal gammopathy (principal); D50.8 Other iron deficiency anemias
CPT/HCPCS: 77074

== ENCOUNTER 2019-10-16 08:36 | Day surgery (SDC) | payer MEDICARE ==
[2019-10-16 09:44] LABS: Hematocrit 39.6 % (35.5-45.6); Hemoglobin 12.8 gm/dl (11.8-15.2); INR 1.17 (0.87-1.13); Mean Corpuscular HGB Conc 32 % (32-34); Mean Corpuscular Volume 80 fl (84-94); Platelet Count 246 K/mm3 (140-440); Red Blood Count 4.98 M/mm3 (3.65-5.03)
[2019-10-16 09:58] LABS: Partial Thromboplastin Time 40.4 Sec. (24.2-36.6)
[2019-10-16 10:22] LABS: Anisocytosis 2+; Basophils % (Manual) 0 % (0.0-1.8); Hypochromasia 1+; Platelet Estimate Consistent w Auto; Total Cells Counted 100
[2019-10-16] MEDS ORDERED: ONDANSETRON 4 MG/2 ML INJ IV ONE (10:40)
[2019-10-16] MEDS ORDERED: HYDROmorphone 1 MG/1 ML INJ IV ONE ×2 (10:41→11:56)
[2019-10-16] MEDS ORDERED: HYDROmorphone 1 MG/1 ML INJ ONE (11:37)
[2019-10-16 13:40] VITALS: BP 161/84
--- NOTE | 2019-10-16 13:40 | Cat Scan Report ---
CT-GUIDED BONE MARROW ASPIRATION AND BIOPSY INDICATION : Monoclonal gammopathy PROCEDURE: The risks (including but not limited to bleeding and infection) and benefits were explain ed to the patient and informed consent was obtained. All CT examinations performed at this facility utilize dose modulation, iterative reconstruction or weight-based dosing, when appropriate, to reduce radiation dose to as low as reasonably achievable. A time out procedure was performed. The procedu re site was prepped and draped in the usual sterile fashion and lidocaine was used for local anesthes ia. Under CT guidance, the right posterior iliac wing was selected for biopsy. An 11 gauge needle was ad vanced to the posterior margin of the iliac wing, cortex breached, and 4.5 mL bone marrow aspirate ob tained. The needle was then advanced and a bone marrow biopsy was obtained measuring approximately 2 cm. Samples were given directly to the air analysis engineering technician who was present during the exam. The patient tolerated the procedure well with no complications. IMPRESSION: Technically successful bone marrow aspirate and biopsy. Signer Name: Jon Arboleda Jr, MD Signed: 10/16/2019 1:36 PM Workstation Name: [id number]
== END 2019-10-16 13:45 | disposition home or self-care (01) ==
LOC: CATHLABREC 08:36
PROVIDERS: ATTEND Internal Medicine Hematology & Oncology
DX: D47.2 Monoclonal gammopathy (principal); I10 Essential (primary) hypertension; I42.8 Other cardiomyopathies; I48.91 Unspecified atrial fibrillation; Z79.899 Other long term (current) drug therapy; Z79.82 Long term (current) use of aspirin; Z86.79 Personal history of other diseases of the circulatory system; Z95.0 Presence of cardiac pacemaker; Z79.01 Long term (current) use of anticoagulants
CPT/HCPCS: 36415; 38222; 77012; 85007; 85025; 85097; 85610; 85730; 88184; 88185; 88230; 88291; 88305; J1170; J2405; 38221; 88161; 88311; 88313

== ENCOUNTER 2020-07-14 13:19 | Outpatient (CLI) | payer MEDICARE ==
[2020-07-14] MEDS ORDERED: LIDOCAINE (4%) 40 MG/ML TOPICAL SOLN 50 ML BOTTLE TP ONE (13:43)
== END 2020-07-14 13:20 | disposition home or self-care (01) ==
LOC: WOUND 13:19
PROVIDERS: ATTEND Surgery
DX: T81.89XA Other complications of procedures, not elsewhere classified, initial encounter (principal); S31.30XA Unspecified open wound of scrotum and testes, initial encounter; C61 Malignant neoplasm of prostate; I10 Essential (primary) hypertension; I48.91 Unspecified atrial fibrillation; E78.5 Hyperlipidemia, unspecified; Z86.73 Personal history of transient ischemic attack (TIA), and cerebral infarction without residual deficits; Z85.46 Personal history of malignant neoplasm of prostate; Z95.0 Presence of cardiac pacemaker; Z96.0 Presence of urogenital implants; Z79.82 Long term (current) use of aspirin; X58.XXXA Exposure to other specified factors, initial encounter; Y93.89 Activity, other specified; Y92.238 Other place in hospital as the place of occurrence of the external cause; Y99.8 Other external cause status
CPT/HCPCS: 99205; 99215; G0463

== ENCOUNTER 2020-07-16 09:07 | Outpatient (CLI) | payer MEDICARE | END 2020-07-16 09:08 | disposition home or self-care (01) | LOC: WOUND 09:07 | PROVIDERS: ATTEND Surgery | DX: T81.89XD Other complications of procedures, not elsewhere classified, subsequent encounter (principal); S31.30XD Unspecified open wound of scrotum and testes, subsequent encounter; C61 Malignant neoplasm of prostate; I10 Essential (primary) hypertension; I48.91 Unspecified atrial fibrillation; E78.5 Hyperlipidemia, unspecified; Z86.73 Personal history of transient ischemic attack (TIA), and cerebral infarction without residual deficits; Z85.46 Personal history of malignant neoplasm of prostate; Z95.0 Presence of cardiac pacemaker; Z96.0 Presence of urogenital implants; Z79.82 Long term (current) use of aspirin; Y83.8 Other surgical procedures as the cause of abnormal reaction of the patient, or of later complication, without mention of misadventure at the time of the procedure; X58.XXXD Exposure to other specified factors, subsequent encounter | CPT/HCPCS: 99213; G0463 ==

== ENCOUNTER 2020-07-19 15:17 | Outpatient (CLI) | payer MEDICARE | END 2020-07-19 15:18 | disposition home or self-care (01) | LOC: WOUND 15:17 | PROVIDERS: ATTEND Surgery | DX: T81.89XD Other complications of procedures, not elsewhere classified, subsequent encounter (principal); S31.30XD Unspecified open wound of scrotum and testes, subsequent encounter; C61 Malignant neoplasm of prostate; I10 Essential (primary) hypertension; I48.91 Unspecified atrial fibrillation; E78.5 Hyperlipidemia, unspecified; Z86.73 Personal history of transient ischemic attack (TIA), and cerebral infarction without residual deficits; Z85.46 Personal history of malignant neoplasm of prostate; Z95.0 Presence of cardiac pacemaker; Z96.0 Presence of urogenital implants; Z79.82 Long term (current) use of aspirin; Y83.8 Other surgical procedures as the cause of abnormal reaction of the patient, or of later complication, without mention of misadventure at the time of the procedure; X58.XXXD Exposure to other specified factors, subsequent encounter | CPT/HCPCS: 99213; G0463 ==

== ENCOUNTER 2020-07-21 08:19 | Outpatient (CLI) | payer MEDICARE ==
[2020-07-21] MEDS ORDERED: LIDOCAINE (4%) 40 MG/ML TOPICAL SOLN 50 ML BOTTLE TP ONE (08:24)
== END 2020-07-21 08:20 | disposition home or self-care (01) ==
LOC: WOUND 08:19
PROVIDERS: ATTEND Surgery
DX: T81.89XD Other complications of procedures, not elsewhere classified, subsequent encounter (principal); S31.30XD Unspecified open wound of scrotum and testes, subsequent encounter; C61 Malignant neoplasm of prostate; I10 Essential (primary) hypertension; I48.91 Unspecified atrial fibrillation; E78.5 Hyperlipidemia, unspecified; Z86.73 Personal history of transient ischemic attack (TIA), and cerebral infarction without residual deficits; Z85.46 Personal history of malignant neoplasm of prostate; Z95.0 Presence of cardiac pacemaker; Z96.0 Presence of urogenital implants; Z79.82 Long term (current) use of aspirin; Y83.8 Other surgical procedures as the cause of abnormal reaction of the patient, or of later complication, without mention of misadventure at the time of the procedure; X58.XXXD Exposure to other specified factors, subsequent encounter
CPT/HCPCS: 99215; G0463

== ENCOUNTER 2020-07-23 08:52 | Outpatient (CLI) | payer MEDICARE | END 2020-07-23 08:53 | disposition home or self-care (01) | LOC: WOUND 08:52 | PROVIDERS: ATTEND Surgery | DX: T81.89XD Other complications of procedures, not elsewhere classified, subsequent encounter (principal); S31.30XD Unspecified open wound of scrotum and testes, subsequent encounter; C61 Malignant neoplasm of prostate; I10 Essential (primary) hypertension; I48.91 Unspecified atrial fibrillation; E78.5 Hyperlipidemia, unspecified; Z86.73 Personal history of transient ischemic attack (TIA), and cerebral infarction without residual deficits; Z85.46 Personal history of malignant neoplasm of prostate; Z95.0 Presence of cardiac pacemaker; Z96.0 Presence of urogenital implants; Z79.82 Long term (current) use of aspirin; Y83.8 Other surgical procedures as the cause of abnormal reaction of the patient, or of later complication, without mention of misadventure at the time of the procedure; X58.XXXD Exposure to other specified factors, subsequent encounter | CPT/HCPCS: 99213; G0463 ==

== ENCOUNTER 2020-07-26 14:14 | Outpatient (CLI) | payer MEDICARE | END 2020-07-26 14:15 | disposition home or self-care (01) | LOC: WOUND 14:14 | PROVIDERS: ATTEND Surgery | DX: T81.89XD Other complications of procedures, not elsewhere classified, subsequent encounter (principal); S31.30XD Unspecified open wound of scrotum and testes, subsequent encounter; C61 Malignant neoplasm of prostate; I10 Essential (primary) hypertension; I48.91 Unspecified atrial fibrillation; E78.5 Hyperlipidemia, unspecified; Z86.73 Personal history of transient ischemic attack (TIA), and cerebral infarction without residual deficits; Z85.46 Personal history of malignant neoplasm of prostate; Z95.0 Presence of cardiac pacemaker; Z96.0 Presence of urogenital implants; Z79.82 Long term (current) use of aspirin; Y83.8 Other surgical procedures as the cause of abnormal reaction of the patient, or of later complication, without mention of misadventure at the time of the procedure; X58.XXXD Exposure to other specified factors, subsequent encounter | CPT/HCPCS: 99214; G0463 ==

== ENCOUNTER 2020-07-28 08:16 | Outpatient (CLI) | payer MEDICARE ==
[2020-07-28] MEDS ORDERED: LIDOCAINE (4%) 40 MG/ML TOPICAL SOLN 50 ML BOTTLE TP NR (08:31)
== END 2020-07-28 08:17 | disposition home or self-care (01) ==
LOC: WOUND 08:16
PROVIDERS: ATTEND Surgery
DX: T81.89XD Other complications of procedures, not elsewhere classified, subsequent encounter (principal); S31.30XD Unspecified open wound of scrotum and testes, subsequent encounter; C61 Malignant neoplasm of prostate; I10 Essential (primary) hypertension; I48.91 Unspecified atrial fibrillation; E78.5 Hyperlipidemia, unspecified; Z86.73 Personal history of transient ischemic attack (TIA), and cerebral infarction without residual deficits; Z85.46 Personal history of malignant neoplasm of prostate; Z95.0 Presence of cardiac pacemaker; Z96.0 Presence of urogenital implants; Z79.82 Long term (current) use of aspirin; Y83.8 Other surgical procedures as the cause of abnormal reaction of the patient, or of later complication, without mention of misadventure at the time of the procedure; X58.XXXD Exposure to other specified factors, subsequent encounter
CPT/HCPCS: 99214; G0463

== ENCOUNTER 2020-07-30 07:56 | Outpatient (CLI) | payer MEDICARE | END 2020-07-30 07:57 | disposition home or self-care (01) | LOC: WOUND 07:56 | PROVIDERS: ATTEND Surgery | DX: T81.89XD Other complications of procedures, not elsewhere classified, subsequent encounter (principal); S31.30XD Unspecified open wound of scrotum and testes, subsequent encounter; C61 Malignant neoplasm of prostate; I10 Essential (primary) hypertension; I48.91 Unspecified atrial fibrillation; E78.5 Hyperlipidemia, unspecified; Z86.73 Personal history of transient ischemic attack (TIA), and cerebral infarction without residual deficits; Z95.0 Presence of cardiac pacemaker; Z96.0 Presence of urogenital implants; Z79.82 Long term (current) use of aspirin; Y83.8 Other surgical procedures as the cause of abnormal reaction of the patient, or of later complication, without mention of misadventure at the time of the procedure; X58.XXXD Exposure to other specified factors, subsequent encounter | CPT/HCPCS: 99214; G0463 ==

== ENCOUNTER 2020-08-02 08:22 | Outpatient (CLI) | payer MEDICARE | END 2020-08-02 08:23 | disposition home or self-care (01) | LOC: WOUND 08:22 | PROVIDERS: ATTEND Surgery | DX: T81.89XD Other complications of procedures, not elsewhere classified, subsequent encounter (principal); S31.30XD Unspecified open wound of scrotum and testes, subsequent encounter; L08.1 Erythrasma; C61 Malignant neoplasm of prostate; I10 Essential (primary) hypertension; I48.91 Unspecified atrial fibrillation; E78.5 Hyperlipidemia, unspecified; G25.81 Restless legs syndrome; Z86.73 Personal history of transient ischemic attack (TIA), and cerebral infarction without residual deficits; Z95.0 Presence of cardiac pacemaker; Z96.0 Presence of urogenital implants; Z79.82 Long term (current) use of aspirin; Y83.8 Other surgical procedures as the cause of abnormal reaction of the patient, or of later complication, without mention of misadventure at the time of the procedure; X58.XXXD Exposure to other specified factors, subsequent encounter | CPT/HCPCS: 99183; G0277 ==

== ENCOUNTER 2020-08-03 08:35 | Outpatient (CLI) | payer MEDICARE ==
--- NOTE | 2020-08-03 10:23 | XRay Report ---
CHEST 2 VIEWS INDICATION / CLINICAL INFORMATION: ERYTHRASMA. COMPARISON: Bone survey from 09/15/2019. FINDINGS: SUPPORT DEVICES: Unchanged left ICD. HEART / MEDIASTINUM: Stable. LUNGS / PLEURA: No significant pulmonary or pleural abnormality. No pneumothorax. ADDITIONAL FINDINGS: The bones are unchanged. No significant additional findings. IMPRESSION: 1. No acute abnormality of the chest. No significant interval changes. Signer Name: Bhaskar Mcgregor MD Signed: 08/03/2020 10:19 AM Workstation Name: [email or web address]
== END 2020-08-03 08:36 | disposition home or self-care (01) ==
LOC: XRAY 08:35
PROVIDERS: ATTEND Surgery
DX: L08.1 Erythrasma (principal)
CPT/HCPCS: 71046

== ENCOUNTER 2020-08-04 08:22 | Outpatient (CLI) | payer MEDICARE ==
[2020-08-04] MEDS ORDERED: LIDOCAINE (4%) 40 MG/ML TOPICAL SOLN 50 ML BOTTLE TP ONE (08:38)
== END 2020-08-04 08:23 | disposition home or self-care (01) ==
LOC: WOUND 08:22
PROVIDERS: ATTEND Surgery
DX: T81.89XD Other complications of procedures, not elsewhere classified, subsequent encounter (principal); S31.30XD Unspecified open wound of scrotum and testes, subsequent encounter; L08.1 Erythrasma; C61 Malignant neoplasm of prostate; I10 Essential (primary) hypertension; I48.91 Unspecified atrial fibrillation; E78.5 Hyperlipidemia, unspecified; G25.81 Restless legs syndrome; Z86.73 Personal history of transient ischemic attack (TIA), and cerebral infarction without residual deficits; Z95.0 Presence of cardiac pacemaker; Z96.0 Presence of urogenital implants; Z79.82 Long term (current) use of aspirin; Y83.8 Other surgical procedures as the cause of abnormal reaction of the patient, or of later complication, without mention of misadventure at the time of the procedure; X58.XXXD Exposure to other specified factors, subsequent encounter
CPT/HCPCS: G0277; G0463; 99183; 99214

== ENCOUNTER 2020-08-05 08:49 | Outpatient (CLI) | payer MEDICARE | END 2020-08-05 08:50 | disposition home or self-care (01) | LOC: WOUND 08:49 | PROVIDERS: ATTEND Surgery | DX: T81.89XD Other complications of procedures, not elsewhere classified, subsequent encounter (principal); S31.30XD Unspecified open wound of scrotum and testes, subsequent encounter; L08.1 Erythrasma; C61 Malignant neoplasm of prostate; I10 Essential (primary) hypertension; I48.91 Unspecified atrial fibrillation; E78.5 Hyperlipidemia, unspecified; G25.81 Restless legs syndrome; Z86.73 Personal history of transient ischemic attack (TIA), and cerebral infarction without residual deficits; Z95.0 Presence of cardiac pacemaker; Z96.0 Presence of urogenital implants; Z79.82 Long term (current) use of aspirin; Y83.8 Other surgical procedures as the cause of abnormal reaction of the patient, or of later complication, without mention of misadventure at the time of the procedure; X58.XXXD Exposure to other specified factors, subsequent encounter | CPT/HCPCS: 99183; G0277 ==

== ENCOUNTER 2020-08-09 08:45 | Outpatient (CLI) | payer MEDICARE | END 2020-08-09 08:46 | disposition home or self-care (01) | LOC: WOUND 08:45 | PROVIDERS: ATTEND Surgery | DX: T81.89XD Other complications of procedures, not elsewhere classified, subsequent encounter (principal); S31.30XD Unspecified open wound of scrotum and testes, subsequent encounter; L08.1 Erythrasma; C61 Malignant neoplasm of prostate; I10 Essential (primary) hypertension; I48.91 Unspecified atrial fibrillation; E78.5 Hyperlipidemia, unspecified; G25.81 Restless legs syndrome; Z86.73 Personal history of transient ischemic attack (TIA), and cerebral infarction without residual deficits; Z95.0 Presence of cardiac pacemaker; Z96.0 Presence of urogenital implants; Z79.82 Long term (current) use of aspirin; Y83.8 Other surgical procedures as the cause of abnormal reaction of the patient, or of later complication, without mention of misadventure at the time of the procedure; X58.XXXD Exposure to other specified factors, subsequent encounter | CPT/HCPCS: 99183; G0277 ==

== ENCOUNTER 2020-08-11 08:04 | Outpatient (CLI) | payer MEDICARE ==
[2020-08-11] MEDS ORDERED: LIDOCAINE (4%) 40 MG/ML TOPICAL SOLN 50 ML BOTTLE TP SCH (08:05)
== END 2020-08-11 08:05 | disposition home or self-care (01) ==
LOC: WOUND 08:04
PROVIDERS: ATTEND Surgery
DX: T81.89XD Other complications of procedures, not elsewhere classified, subsequent encounter (principal); S31.30XD Unspecified open wound of scrotum and testes, subsequent encounter; L08.1 Erythrasma; C61 Malignant neoplasm of prostate; I10 Essential (primary) hypertension; I48.91 Unspecified atrial fibrillation; E78.5 Hyperlipidemia, unspecified; G25.81 Restless legs syndrome; Z86.73 Personal history of transient ischemic attack (TIA), and cerebral infarction without residual deficits; Z95.0 Presence of cardiac pacemaker; Z96.0 Presence of urogenital implants; Z79.82 Long term (current) use of aspirin; Y83.8 Other surgical procedures as the cause of abnormal reaction of the patient, or of later complication, without mention of misadventure at the time of the procedure; X58.XXXD Exposure to other specified factors, subsequent encounter
CPT/HCPCS: G0277; G0463; 99183; 99215

== ENCOUNTER 2020-08-12 10:10 | Outpatient (CLI) | payer MEDICARE | END 2020-08-12 10:11 | disposition home or self-care (01) | LOC: WOUND 10:10 | PROVIDERS: ATTEND Surgery | DX: T81.89XD Other complications of procedures, not elsewhere classified, subsequent encounter (principal); S31.30XD Unspecified open wound of scrotum and testes, subsequent encounter; L08.1 Erythrasma; C61 Malignant neoplasm of prostate; I10 Essential (primary) hypertension; I48.91 Unspecified atrial fibrillation; E78.5 Hyperlipidemia, unspecified; G25.81 Restless legs syndrome; Z86.73 Personal history of transient ischemic attack (TIA), and cerebral infarction without residual deficits; Z95.0 Presence of cardiac pacemaker; Z96.0 Presence of urogenital implants; Z79.82 Long term (current) use of aspirin; Y83.8 Other surgical procedures as the cause of abnormal reaction of the patient, or of later complication, without mention of misadventure at the time of the procedure; X58.XXXD Exposure to other specified factors, subsequent encounter | CPT/HCPCS: 99183; G0277 ==

== ENCOUNTER 2020-08-13 08:39 | Outpatient (CLI) | payer MEDICARE | END 2020-08-13 08:40 | disposition home or self-care (01) | LOC: WOUND 08:39 | PROVIDERS: ATTEND Internal Medicine | DX: T81.89XD Other complications of procedures, not elsewhere classified, subsequent encounter (principal); S31.30XD Unspecified open wound of scrotum and testes, subsequent encounter; C61 Malignant neoplasm of prostate; I10 Essential (primary) hypertension; L08.1 Erythrasma; I48.91 Unspecified atrial fibrillation; E78.5 Hyperlipidemia, unspecified; G25.81 Restless legs syndrome; Z86.73 Personal history of transient ischemic attack (TIA), and cerebral infarction without residual deficits; Z95.0 Presence of cardiac pacemaker; Z96.0 Presence of urogenital implants; Z79.82 Long term (current) use of aspirin; Y83.8 Other surgical procedures as the cause of abnormal reaction of the patient, or of later complication, without mention of misadventure at the time of the procedure; X58.XXXD Exposure to other specified factors, subsequent encounter | CPT/HCPCS: 99183; G0277 ==

== ENCOUNTER 2020-08-16 08:21 | Outpatient (CLI) | payer MEDICARE | END 2020-08-16 08:22 | disposition home or self-care (01) | LOC: WOUND 08:21 | PROVIDERS: ATTEND Surgery | DX: T81.89XD Other complications of procedures, not elsewhere classified, subsequent encounter (principal); S31.30XD Unspecified open wound of scrotum and testes, subsequent encounter; C61 Malignant neoplasm of prostate; I10 Essential (primary) hypertension; L08.1 Erythrasma; I48.91 Unspecified atrial fibrillation; E78.5 Hyperlipidemia, unspecified; G25.81 Restless legs syndrome; Z86.73 Personal history of transient ischemic attack (TIA), and cerebral infarction without residual deficits; Z95.0 Presence of cardiac pacemaker; Z96.0 Presence of urogenital implants; Z79.82 Long term (current) use of aspirin; Y83.8 Other surgical procedures as the cause of abnormal reaction of the patient, or of later complication, without mention of misadventure at the time of the procedure; X58.XXXD Exposure to other specified factors, subsequent encounter | CPT/HCPCS: 99183; G0277 ==

== ENCOUNTER 2020-08-17 08:00 | Outpatient (CLI) | payer MEDICARE | END 2020-08-17 08:01 | disposition home or self-care (01) | LOC: WOUND 08:00 | PROVIDERS: ATTEND Internal Medicine | DX: T81.89XD Other complications of procedures, not elsewhere classified, subsequent encounter (principal); S31.30XD Unspecified open wound of scrotum and testes, subsequent encounter; C61 Malignant neoplasm of prostate; I10 Essential (primary) hypertension; L08.1 Erythrasma; I48.91 Unspecified atrial fibrillation; E78.5 Hyperlipidemia, unspecified; G25.81 Restless legs syndrome; Z86.73 Personal history of transient ischemic attack (TIA), and cerebral infarction without residual deficits; Z95.0 Presence of cardiac pacemaker; Z96.0 Presence of urogenital implants; Z79.82 Long term (current) use of aspirin; Y83.8 Other surgical procedures as the cause of abnormal reaction of the patient, or of later complication, without mention of misadventure at the time of the procedure; X58.XXXD Exposure to other specified factors, subsequent encounter | CPT/HCPCS: 99183; G0277 ==

== ENCOUNTER 2020-08-18 08:02 | Outpatient (CLI) | payer MEDICARE ==
[2020-08-18] MEDS ORDERED: LIDOCAINE (4%) 40 MG/ML TOPICAL SOLN 50 ML BOTTLE TP ONE (08:03)
== END 2020-08-18 08:03 | disposition home or self-care (01) ==
LOC: WOUND 08:02
PROVIDERS: ATTEND Surgery
DX: T81.89XD Other complications of procedures, not elsewhere classified, subsequent encounter (principal); S31.30XD Unspecified open wound of scrotum and testes, subsequent encounter; C61 Malignant neoplasm of prostate; I10 Essential (primary) hypertension; L08.1 Erythrasma; I48.91 Unspecified atrial fibrillation; E78.5 Hyperlipidemia, unspecified; G25.81 Restless legs syndrome; Z86.73 Personal history of transient ischemic attack (TIA), and cerebral infarction without residual deficits; Z95.0 Presence of cardiac pacemaker; Z96.0 Presence of urogenital implants; Z79.82 Long term (current) use of aspirin; Y83.8 Other surgical procedures as the cause of abnormal reaction of the patient, or of later complication, without mention of misadventure at the time of the procedure; X58.XXXD Exposure to other specified factors, subsequent encounter
CPT/HCPCS: G0277; G0463; 99183; 99214

== ENCOUNTER 2020-08-19 08:29 | Outpatient (CLI) | payer MEDICARE | END 2020-08-19 08:30 | disposition home or self-care (01) | LOC: WOUND 08:29 | PROVIDERS: ATTEND Surgery | DX: T81.89XD Other complications of procedures, not elsewhere classified, subsequent encounter (principal); S31.30XD Unspecified open wound of scrotum and testes, subsequent encounter; C61 Malignant neoplasm of prostate; I10 Essential (primary) hypertension; L08.1 Erythrasma; I48.91 Unspecified atrial fibrillation; E78.5 Hyperlipidemia, unspecified; G25.81 Restless legs syndrome; Z86.73 Personal history of transient ischemic attack (TIA), and cerebral infarction without residual deficits; Z95.0 Presence of cardiac pacemaker; Z96.0 Presence of urogenital implants; Z79.82 Long term (current) use of aspirin; Y83.8 Other surgical procedures as the cause of abnormal reaction of the patient, or of later complication, without mention of misadventure at the time of the procedure; X58.XXXD Exposure to other specified factors, subsequent encounter | CPT/HCPCS: 99183; G0277 ==

== ENCOUNTER 2020-08-20 07:34 | Outpatient (CLI) | payer MEDICARE | END 2020-08-20 07:35 | disposition home or self-care (01) | LOC: WOUND 07:34 | PROVIDERS: ATTEND Internal Medicine | DX: T81.89XD Other complications of procedures, not elsewhere classified, subsequent encounter (principal); S31.30XD Unspecified open wound of scrotum and testes, subsequent encounter; C61 Malignant neoplasm of prostate; I10 Essential (primary) hypertension; I48.91 Unspecified atrial fibrillation; L08.1 Erythrasma; E78.5 Hyperlipidemia, unspecified; G25.81 Restless legs syndrome; Z86.73 Personal history of transient ischemic attack (TIA), and cerebral infarction without residual deficits; Z95.0 Presence of cardiac pacemaker; Z96.0 Presence of urogenital implants; Z79.82 Long term (current) use of aspirin; Y83.8 Other surgical procedures as the cause of abnormal reaction of the patient, or of later complication, without mention of misadventure at the time of the procedure; X58.XXXD Exposure to other specified factors, subsequent encounter | CPT/HCPCS: 99183; G0277 ==

== ENCOUNTER 2020-08-23 09:20 | Outpatient (CLI) | payer MEDICARE | END 2020-08-23 09:21 | disposition home or self-care (01) | LOC: WOUND 09:20 | PROVIDERS: ATTEND Surgery | DX: T81.89XD Other complications of procedures, not elsewhere classified, subsequent encounter (principal); S31.30XD Unspecified open wound of scrotum and testes, subsequent encounter; C61 Malignant neoplasm of prostate; I10 Essential (primary) hypertension; I48.91 Unspecified atrial fibrillation; L08.1 Erythrasma; E78.5 Hyperlipidemia, unspecified; G25.81 Restless legs syndrome; Z86.73 Personal history of transient ischemic attack (TIA), and cerebral infarction without residual deficits; Z95.0 Presence of cardiac pacemaker; Z96.0 Presence of urogenital implants; Z79.82 Long term (current) use of aspirin; Y83.8 Other surgical procedures as the cause of abnormal reaction of the patient, or of later complication, without mention of misadventure at the time of the procedure; X58.XXXD Exposure to other specified factors, subsequent encounter | CPT/HCPCS: 99183; G0277 ==

== ENCOUNTER 2020-08-25 08:09 | Outpatient (CLI) | payer MEDICARE ==
[2020-08-25] MEDS ORDERED: SILVER NITRATE APPLICATOR 1 EA TP SCH (08:19)
== END 2020-08-25 08:10 | disposition home or self-care (01) ==
LOC: WOUND 08:09
PROVIDERS: ATTEND Surgery
DX: T81.89XD Other complications of procedures, not elsewhere classified, subsequent encounter (principal); S31.30XD Unspecified open wound of scrotum and testes, subsequent encounter; C61 Malignant neoplasm of prostate; I10 Essential (primary) hypertension; I48.91 Unspecified atrial fibrillation; L08.1 Erythrasma; E78.5 Hyperlipidemia, unspecified; G25.81 Restless legs syndrome; Z86.73 Personal history of transient ischemic attack (TIA), and cerebral infarction without residual deficits; Z95.0 Presence of cardiac pacemaker; Z96.0 Presence of urogenital implants; Z79.82 Long term (current) use of aspirin; Y83.8 Other surgical procedures as the cause of abnormal reaction of the patient, or of later complication, without mention of misadventure at the time of the procedure; X58.XXXD Exposure to other specified factors, subsequent encounter
CPT/HCPCS: G0277; G0463; 99183; 99214

== ENCOUNTER 2020-08-26 08:21 | Outpatient (CLI) | payer MEDICARE ==
[2020-08-26] MEDS ORDERED: LIDOCAINE (4%) 40 MG/ML TOPICAL SOLN 50 ML BOTTLE TP SCH (09:30)
== END 2020-08-26 08:22 | disposition home or self-care (01) ==
LOC: WOUND 08:21
PROVIDERS: ATTEND Surgery
DX: T81.89XD Other complications of procedures, not elsewhere classified, subsequent encounter (principal); S31.30XD Unspecified open wound of scrotum and testes, subsequent encounter; C61 Malignant neoplasm of prostate; I10 Essential (primary) hypertension; I48.91 Unspecified atrial fibrillation; L08.1 Erythrasma; E78.5 Hyperlipidemia, unspecified; G25.81 Restless legs syndrome; Z86.73 Personal history of transient ischemic attack (TIA), and cerebral infarction without residual deficits; Z95.0 Presence of cardiac pacemaker; Z96.0 Presence of urogenital implants; Z79.82 Long term (current) use of aspirin; Y83.8 Other surgical procedures as the cause of abnormal reaction of the patient, or of later complication, without mention of misadventure at the time of the procedure; X58.XXXD Exposure to other specified factors, subsequent encounter
CPT/HCPCS: 99183; G0277

== ENCOUNTER 2020-08-27 09:15 | Outpatient (CLI) | payer MEDICARE | END 2020-08-27 09:16 | disposition home or self-care (01) | LOC: WOUND 09:15 | PROVIDERS: ATTEND Internal Medicine | DX: T81.89XD Other complications of procedures, not elsewhere classified, subsequent encounter (principal); S31.30XD Unspecified open wound of scrotum and testes, subsequent encounter; C61 Malignant neoplasm of prostate; I10 Essential (primary) hypertension; I48.91 Unspecified atrial fibrillation; L08.1 Erythrasma; E78.5 Hyperlipidemia, unspecified; G25.81 Restless legs syndrome; Z86.73 Personal history of transient ischemic attack (TIA), and cerebral infarction without residual deficits; Z95.0 Presence of cardiac pacemaker; Z96.0 Presence of urogenital implants; Z79.82 Long term (current) use of aspirin; Y83.8 Other surgical procedures as the cause of abnormal reaction of the patient, or of later complication, without mention of misadventure at the time of the procedure; X58.XXXD Exposure to other specified factors, subsequent encounter | CPT/HCPCS: 99183; G0277 ==

== ENCOUNTER 2020-08-30 08:00 | Outpatient (CLI) | payer MEDICARE | END 2020-08-30 08:01 | disposition home or self-care (01) | LOC: WOUND 08:00 | PROVIDERS: ATTEND Surgery | DX: T81.89XD Other complications of procedures, not elsewhere classified, subsequent encounter (principal); S31.30XD Unspecified open wound of scrotum and testes, subsequent encounter; C61 Malignant neoplasm of prostate; I10 Essential (primary) hypertension; I48.91 Unspecified atrial fibrillation; L08.1 Erythrasma; E78.5 Hyperlipidemia, unspecified; G25.81 Restless legs syndrome; Z86.73 Personal history of transient ischemic attack (TIA), and cerebral infarction without residual deficits; Z95.0 Presence of cardiac pacemaker; Z96.0 Presence of urogenital implants; Z79.82 Long term (current) use of aspirin; Y83.8 Other surgical procedures as the cause of abnormal reaction of the patient, or of later complication, without mention of misadventure at the time of the procedure; X58.XXXD Exposure to other specified factors, subsequent encounter | CPT/HCPCS: 99183; G0277 ==

== ENCOUNTER 2020-08-31 08:00 | Outpatient (CLI) | payer MEDICARE | END 2020-08-31 08:01 | disposition home or self-care (01) | LOC: WOUND 08:00 | PROVIDERS: ATTEND Surgery | DX: T81.89XD Other complications of procedures, not elsewhere classified, subsequent encounter (principal); S31.30XD Unspecified open wound of scrotum and testes, subsequent encounter; C61 Malignant neoplasm of prostate; I10 Essential (primary) hypertension; I48.91 Unspecified atrial fibrillation; L08.1 Erythrasma; E78.5 Hyperlipidemia, unspecified; G25.81 Restless legs syndrome; Z86.73 Personal history of transient ischemic attack (TIA), and cerebral infarction without residual deficits; Z95.0 Presence of cardiac pacemaker; Z96.0 Presence of urogenital implants; Z79.82 Long term (current) use of aspirin; Y83.8 Other surgical procedures as the cause of abnormal reaction of the patient, or of later complication, without mention of misadventure at the time of the procedure; X58.XXXD Exposure to other specified factors, subsequent encounter | CPT/HCPCS: 99183; G0277 ==

== ENCOUNTER 2020-09-01 08:01 | Outpatient (CLI) | payer MEDICARE | END 2020-09-01 08:02 | disposition home or self-care (01) | LOC: WOUND 08:01 | PROVIDERS: ATTEND Surgery | DX: T81.89XD Other complications of procedures, not elsewhere classified, subsequent encounter (principal); S31.30XD Unspecified open wound of scrotum and testes, subsequent encounter; C61 Malignant neoplasm of prostate; I10 Essential (primary) hypertension; I48.91 Unspecified atrial fibrillation; L08.1 Erythrasma; E78.5 Hyperlipidemia, unspecified; G25.81 Restless legs syndrome; Z86.73 Personal history of transient ischemic attack (TIA), and cerebral infarction without residual deficits; Z95.0 Presence of cardiac pacemaker; Z96.0 Presence of urogenital implants; Z79.82 Long term (current) use of aspirin; Y83.8 Other surgical procedures as the cause of abnormal reaction of the patient, or of later complication, without mention of misadventure at the time of the procedure; X58.XXXD Exposure to other specified factors, subsequent encounter | CPT/HCPCS: 99183; G0277 ==

== ENCOUNTER 2020-09-02 08:07 | Outpatient (CLI) | payer MEDICARE | END 2020-09-02 08:08 | disposition home or self-care (01) | LOC: WOUND 08:07 | PROVIDERS: ATTEND Surgery | DX: T81.89XD Other complications of procedures, not elsewhere classified, subsequent encounter (principal); S31.30XD Unspecified open wound of scrotum and testes, subsequent encounter; C61 Malignant neoplasm of prostate; I10 Essential (primary) hypertension; I48.91 Unspecified atrial fibrillation; L08.1 Erythrasma; E78.5 Hyperlipidemia, unspecified; G25.81 Restless legs syndrome; Z86.73 Personal history of transient ischemic attack (TIA), and cerebral infarction without residual deficits; Z95.0 Presence of cardiac pacemaker; Z96.0 Presence of urogenital implants; Z79.82 Long term (current) use of aspirin; Y83.8 Other surgical procedures as the cause of abnormal reaction of the patient, or of later complication, without mention of misadventure at the time of the procedure; X58.XXXD Exposure to other specified factors, subsequent encounter | CPT/HCPCS: 99183; G0277 ==

== ENCOUNTER 2020-09-03 08:00 | Outpatient (CLI) | payer MEDICARE | END 2020-09-03 08:01 | disposition home or self-care (01) | LOC: WOUND 08:00 | PROVIDERS: ATTEND Internal Medicine | DX: T81.89XD Other complications of procedures, not elsewhere classified, subsequent encounter (principal); S31.30XD Unspecified open wound of scrotum and testes, subsequent encounter; C61 Malignant neoplasm of prostate; I10 Essential (primary) hypertension; I48.91 Unspecified atrial fibrillation; L08.1 Erythrasma; E78.5 Hyperlipidemia, unspecified; G25.81 Restless legs syndrome; Z86.73 Personal history of transient ischemic attack (TIA), and cerebral infarction without residual deficits; Z95.0 Presence of cardiac pacemaker; Z96.0 Presence of urogenital implants; Z79.82 Long term (current) use of aspirin; Y83.8 Other surgical procedures as the cause of abnormal reaction of the patient, or of later complication, without mention of misadventure at the time of the procedure; X58.XXXD Exposure to other specified factors, subsequent encounter | CPT/HCPCS: 99183; G0277 ==

== ENCOUNTER 2020-09-06 08:19 | Outpatient (CLI) | payer MEDICARE | END 2020-09-06 08:20 | disposition home or self-care (01) | LOC: WOUND 08:19 | PROVIDERS: ATTEND Surgery | DX: T81.89XD Other complications of procedures, not elsewhere classified, subsequent encounter (principal); S31.30XD Unspecified open wound of scrotum and testes, subsequent encounter; X58.XXXD Exposure to other specified factors, subsequent encounter; C61 Malignant neoplasm of prostate; I10 Essential (primary) hypertension; I48.91 Unspecified atrial fibrillation; L08.1 Erythrasma; E78.5 Hyperlipidemia, unspecified; G25.81 Restless legs syndrome; Z86.73 Personal history of transient ischemic attack (TIA), and cerebral infarction without residual deficits; Z95.0 Presence of cardiac pacemaker; Z96.0 Presence of urogenital implants; Z79.82 Long term (current) use of aspirin; Y83.8 Other surgical procedures as the cause of abnormal reaction of the patient, or of later complication, without mention of misadventure at the time of the procedure | CPT/HCPCS: 99183; G0277 ==

== ENCOUNTER 2020-09-08 08:16 | Outpatient (CLI) | payer MEDICARE | END 2020-09-08 08:17 | disposition home or self-care (01) | LOC: WOUND 08:16 | PROVIDERS: ATTEND Surgery | DX: T81.89XD Other complications of procedures, not elsewhere classified, subsequent encounter (principal); S31.30XD Unspecified open wound of scrotum and testes, subsequent encounter; C61 Malignant neoplasm of prostate; I10 Essential (primary) hypertension; I48.91 Unspecified atrial fibrillation; L08.1 Erythrasma; E78.5 Hyperlipidemia, unspecified; G25.81 Restless legs syndrome; Z86.73 Personal history of transient ischemic attack (TIA), and cerebral infarction without residual deficits; Z95.0 Presence of cardiac pacemaker; Z96.0 Presence of urogenital implants; Z79.82 Long term (current) use of aspirin; Y83.8 Other surgical procedures as the cause of abnormal reaction of the patient, or of later complication, without mention of misadventure at the time of the procedure | CPT/HCPCS: 99183; G0277 ==

== ENCOUNTER 2020-09-13 09:28 | Outpatient (CLI) | payer MEDICARE | END 2020-09-13 09:29 | disposition home or self-care (01) | LOC: WOUND 09:28 | PROVIDERS: ATTEND Surgery | DX: T81.89XD Other complications of procedures, not elsewhere classified, subsequent encounter (principal); S31.30XD Unspecified open wound of scrotum and testes, subsequent encounter; C61 Malignant neoplasm of prostate; I10 Essential (primary) hypertension; I48.91 Unspecified atrial fibrillation; L08.1 Erythrasma; E78.5 Hyperlipidemia, unspecified; G25.81 Restless legs syndrome; Z86.73 Personal history of transient ischemic attack (TIA), and cerebral infarction without residual deficits; Z95.0 Presence of cardiac pacemaker; Z96.0 Presence of urogenital implants; Z79.82 Long term (current) use of aspirin; Y83.8 Other surgical procedures as the cause of abnormal reaction of the patient, or of later complication, without mention of misadventure at the time of the procedure | CPT/HCPCS: 99183; G0277 ==

== ENCOUNTER 2020-09-14 08:25 | Outpatient (CLI) | payer MEDICARE | END 2020-09-14 08:26 | disposition home or self-care (01) | LOC: WOUND 08:25 | PROVIDERS: ATTEND Internal Medicine | DX: T81.89XD Other complications of procedures, not elsewhere classified, subsequent encounter (principal); S31.30XD Unspecified open wound of scrotum and testes, subsequent encounter; C61 Malignant neoplasm of prostate; I10 Essential (primary) hypertension; I48.91 Unspecified atrial fibrillation; L08.1 Erythrasma; E78.5 Hyperlipidemia, unspecified; G25.81 Restless legs syndrome; Z86.73 Personal history of transient ischemic attack (TIA), and cerebral infarction without residual deficits; Z95.0 Presence of cardiac pacemaker; Z96.0 Presence of urogenital implants; Z79.82 Long term (current) use of aspirin; Y83.8 Other surgical procedures as the cause of abnormal reaction of the patient, or of later complication, without mention of misadventure at the time of the procedure | CPT/HCPCS: 99183; G0277 ==

== ENCOUNTER 2020-09-15 08:03 | Outpatient (CLI) | payer MEDICARE ==
[2020-09-15] MEDS ORDERED: LIDOCAINE (4%) 40 MG/ML TOPICAL SOLN 50 ML BOTTLE TP ONE (08:05)
== END 2020-09-15 08:04 | disposition home or self-care (01) ==
LOC: WOUND 08:03
PROVIDERS: ATTEND Surgery
DX: T81.89XD Other complications of procedures, not elsewhere classified, subsequent encounter (principal); S31.30XD Unspecified open wound of scrotum and testes, subsequent encounter; C61 Malignant neoplasm of prostate; I10 Essential (primary) hypertension; I48.91 Unspecified atrial fibrillation; L08.1 Erythrasma; E78.5 Hyperlipidemia, unspecified; G25.81 Restless legs syndrome; Z86.73 Personal history of transient ischemic attack (TIA), and cerebral infarction without residual deficits; Z95.0 Presence of cardiac pacemaker; Z96.0 Presence of urogenital implants; Z79.82 Long term (current) use of aspirin; Y83.8 Other surgical procedures as the cause of abnormal reaction of the patient, or of later complication, without mention of misadventure at the time of the procedure
CPT/HCPCS: G0277; G0463; 99183; 99214

== ENCOUNTER 2020-09-16 08:07 | Outpatient (CLI) | payer MEDICARE | END 2020-09-16 08:08 | disposition home or self-care (01) | LOC: WOUND 08:07 | PROVIDERS: ATTEND Surgery | DX: T81.89XD Other complications of procedures, not elsewhere classified, subsequent encounter (principal); S31.30XD Unspecified open wound of scrotum and testes, subsequent encounter; C61 Malignant neoplasm of prostate; I10 Essential (primary) hypertension; I48.91 Unspecified atrial fibrillation; L08.1 Erythrasma; E78.5 Hyperlipidemia, unspecified; G25.81 Restless legs syndrome; Z86.73 Personal history of transient ischemic attack (TIA), and cerebral infarction without residual deficits; Z95.0 Presence of cardiac pacemaker; Z96.0 Presence of urogenital implants; Z79.82 Long term (current) use of aspirin; Y83.8 Other surgical procedures as the cause of abnormal reaction of the patient, or of later complication, without mention of misadventure at the time of the procedure; X58.XXXD Exposure to other specified factors, subsequent encounter | CPT/HCPCS: 99183; G0277 ==

== ENCOUNTER 2020-09-17 08:00 | Outpatient (CLI) | payer MEDICARE | END 2020-09-17 08:01 | disposition home or self-care (01) | LOC: WOUND 08:00 | PROVIDERS: ATTEND Surgery | DX: T81.89XD Other complications of procedures, not elsewhere classified, subsequent encounter (principal); S31.30XD Unspecified open wound of scrotum and testes, subsequent encounter; C61 Malignant neoplasm of prostate; I10 Essential (primary) hypertension; I48.91 Unspecified atrial fibrillation; E78.5 Hyperlipidemia, unspecified; G25.81 Restless legs syndrome; L08.1 Erythrasma; Z86.73 Personal history of transient ischemic attack (TIA), and cerebral infarction without residual deficits; Z95.0 Presence of cardiac pacemaker; Z96.0 Presence of urogenital implants; Z79.82 Long term (current) use of aspirin; Y83.8 Other surgical procedures as the cause of abnormal reaction of the patient, or of later complication, without mention of misadventure at the time of the procedure | CPT/HCPCS: 99183; G0277 ==

== ENCOUNTER 2020-09-17 09:00 | Outpatient (CLI) | payer MEDICARE | END 2020-09-17 10:00 | disposition home or self-care (01) | LOC: WOUND 09:00 | PROVIDERS: ATTEND Surgery | DX: T81.89XD Other complications of procedures, not elsewhere classified, subsequent encounter (principal); S31.30XD Unspecified open wound of scrotum and testes, subsequent encounter; C61 Malignant neoplasm of prostate; I10 Essential (primary) hypertension; I48.91 Unspecified atrial fibrillation; L08.1 Erythrasma; E78.5 Hyperlipidemia, unspecified; G25.81 Restless legs syndrome; Z86.73 Personal history of transient ischemic attack (TIA), and cerebral infarction without residual deficits; Z95.0 Presence of cardiac pacemaker; Z96.0 Presence of urogenital implants; Z79.82 Long term (current) use of aspirin; X58.XXXD Exposure to other specified factors, subsequent encounter; Y83.8 Other surgical procedures as the cause of abnormal reaction of the patient, or of later complication, without mention of misadventure at the time of the procedure | CPT/HCPCS: 99183; G0277 ==

== ENCOUNTER 2020-09-20 08:20 | Outpatient (CLI) | payer MEDICARE | END 2020-09-20 08:21 | disposition home or self-care (01) | LOC: WOUND 08:20 | PROVIDERS: ATTEND Surgery | DX: T81.89XD Other complications of procedures, not elsewhere classified, subsequent encounter (principal); S31.30XD Unspecified open wound of scrotum and testes, subsequent encounter; C61 Malignant neoplasm of prostate; I10 Essential (primary) hypertension; I48.91 Unspecified atrial fibrillation; E78.5 Hyperlipidemia, unspecified; G25.81 Restless legs syndrome; Z86.73 Personal history of transient ischemic attack (TIA), and cerebral infarction without residual deficits; Z95.0 Presence of cardiac pacemaker; Z96.0 Presence of urogenital implants; Z79.82 Long term (current) use of aspirin; Y83.8 Other surgical procedures as the cause of abnormal reaction of the patient, or of later complication, without mention of misadventure at the time of the procedure | CPT/HCPCS: 99183; G0277 ==

== ENCOUNTER 2020-09-21 08:00 | Outpatient (CLI) | payer MEDICARE | END 2020-09-21 08:01 | disposition home or self-care (01) | LOC: WOUND 08:00 | PROVIDERS: ATTEND Surgery | DX: T81.89XD Other complications of procedures, not elsewhere classified, subsequent encounter (principal); S31.30XD Unspecified open wound of scrotum and testes, subsequent encounter; L08.1 Erythrasma; I48.91 Unspecified atrial fibrillation; C61 Malignant neoplasm of prostate; E78.5 Hyperlipidemia, unspecified; G25.81 Restless legs syndrome; Z86.73 Personal history of transient ischemic attack (TIA), and cerebral infarction without residual deficits; Z95.0 Presence of cardiac pacemaker; Z96.0 Presence of urogenital implants; Z79.82 Long term (current) use of aspirin; Y83.8 Other surgical procedures as the cause of abnormal reaction of the patient, or of later complication, without mention of misadventure at the time of the procedure | CPT/HCPCS: 99183; G0277 ==

== ENCOUNTER 2020-09-22 08:06 | Outpatient (CLI) | payer MEDICARE | END 2020-09-22 08:07 | disposition home or self-care (01) | LOC: WOUND 08:06 | PROVIDERS: ATTEND Surgery | DX: T81.89XD Other complications of procedures, not elsewhere classified, subsequent encounter (principal); S31.30XD Unspecified open wound of scrotum and testes, subsequent encounter; L08.1 Erythrasma; I48.91 Unspecified atrial fibrillation; C61 Malignant neoplasm of prostate; E78.5 Hyperlipidemia, unspecified; G25.81 Restless legs syndrome; Z86.73 Personal history of transient ischemic attack (TIA), and cerebral infarction without residual deficits; Z95.0 Presence of cardiac pacemaker; Z96.0 Presence of urogenital implants; Z79.82 Long term (current) use of aspirin; Y83.8 Other surgical procedures as the cause of abnormal reaction of the patient, or of later complication, without mention of misadventure at the time of the procedure | CPT/HCPCS: 99183; G0277 ==

== ENCOUNTER 2020-09-23 08:05 | Outpatient (CLI) | payer MEDICARE | END 2020-09-23 08:06 | disposition home or self-care (01) | LOC: WOUND 08:05 | PROVIDERS: ATTEND Surgery | DX: T81.89XD Other complications of procedures, not elsewhere classified, subsequent encounter (principal); S31.30XD Unspecified open wound of scrotum and testes, subsequent encounter; L08.1 Erythrasma; I48.91 Unspecified atrial fibrillation; C61 Malignant neoplasm of prostate; E78.5 Hyperlipidemia, unspecified; G25.81 Restless legs syndrome; Z86.73 Personal history of transient ischemic attack (TIA), and cerebral infarction without residual deficits; Z95.0 Presence of cardiac pacemaker; Z96.0 Presence of urogenital implants; Z79.82 Long term (current) use of aspirin; Y83.8 Other surgical procedures as the cause of abnormal reaction of the patient, or of later complication, without mention of misadventure at the time of the procedure | CPT/HCPCS: 99183; G0277 ==

== ENCOUNTER 2020-09-24 08:02 | Outpatient (CLI) | payer MEDICARE | END 2020-09-24 08:03 | disposition home or self-care (01) | LOC: WOUND 08:02 | PROVIDERS: ATTEND Internal Medicine | DX: T81.89XD Other complications of procedures, not elsewhere classified, subsequent encounter (principal); S31.30XD Unspecified open wound of scrotum and testes, subsequent encounter; L08.1 Erythrasma; C61 Malignant neoplasm of prostate; I48.91 Unspecified atrial fibrillation; E78.5 Hyperlipidemia, unspecified; G25.81 Restless legs syndrome; Z86.73 Personal history of transient ischemic attack (TIA), and cerebral infarction without residual deficits; Z95.0 Presence of cardiac pacemaker; Z96.0 Presence of urogenital implants; Z79.82 Long term (current) use of aspirin; Y83.8 Other surgical procedures as the cause of abnormal reaction of the patient, or of later complication, without mention of misadventure at the time of the procedure; X58.XXXD Exposure to other specified factors, subsequent encounter | CPT/HCPCS: 99183; G0277 ==

== ENCOUNTER 2020-09-27 08:00 | Outpatient (CLI) | payer MEDICARE | END 2020-09-27 08:01 | disposition home or self-care (01) | LOC: WOUND 08:00 | PROVIDERS: ATTEND Internal Medicine | DX: T81.89XD Other complications of procedures, not elsewhere classified, subsequent encounter (principal); S31.30XD Unspecified open wound of scrotum and testes, subsequent encounter; L08.1 Erythrasma; C61 Malignant neoplasm of prostate; I48.91 Unspecified atrial fibrillation; E78.5 Hyperlipidemia, unspecified; G25.81 Restless legs syndrome; Z86.73 Personal history of transient ischemic attack (TIA), and cerebral infarction without residual deficits; Z95.0 Presence of cardiac pacemaker; Z96.0 Presence of urogenital implants; Z79.82 Long term (current) use of aspirin; Y83.8 Other surgical procedures as the cause of abnormal reaction of the patient, or of later complication, without mention of misadventure at the time of the procedure; X58.XXXD Exposure to other specified factors, subsequent encounter | CPT/HCPCS: 99183; G0277 ==

== ENCOUNTER 2020-09-28 08:00 | Outpatient (CLI) | payer MEDICARE | END 2020-09-28 08:01 | disposition home or self-care (01) | LOC: WOUND 08:00 | PROVIDERS: ATTEND Internal Medicine | DX: T81.89XD Other complications of procedures, not elsewhere classified, subsequent encounter (principal); S31.30XD Unspecified open wound of scrotum and testes, subsequent encounter; L08.1 Erythrasma; I48.91 Unspecified atrial fibrillation; C61 Malignant neoplasm of prostate; E78.5 Hyperlipidemia, unspecified; G25.81 Restless legs syndrome; I10 Essential (primary) hypertension; Z86.73 Personal history of transient ischemic attack (TIA), and cerebral infarction without residual deficits; Z95.0 Presence of cardiac pacemaker; Z96.0 Presence of urogenital implants; Z79.82 Long term (current) use of aspirin; Y83.8 Other surgical procedures as the cause of abnormal reaction of the patient, or of later complication, without mention of misadventure at the time of the procedure; X58.XXXD Exposure to other specified factors, subsequent encounter | CPT/HCPCS: 99183; G0277 ==

== ENCOUNTER 2020-09-29 07:52 | Outpatient (CLI) | payer MEDICARE | END 2020-09-29 07:53 | disposition home or self-care (01) | LOC: WOUND 07:52 | PROVIDERS: ATTEND Surgery | DX: T81.89XD Other complications of procedures, not elsewhere classified, subsequent encounter (principal); S31.30XD Unspecified open wound of scrotum and testes, subsequent encounter; L08.1 Erythrasma; I48.91 Unspecified atrial fibrillation; C61 Malignant neoplasm of prostate; E78.5 Hyperlipidemia, unspecified; G25.81 Restless legs syndrome; Z86.73 Personal history of transient ischemic attack (TIA), and cerebral infarction without residual deficits; Z95.0 Presence of cardiac pacemaker; Z96.0 Presence of urogenital implants; Z79.82 Long term (current) use of aspirin; Y83.8 Other surgical procedures as the cause of abnormal reaction of the patient, or of later complication, without mention of misadventure at the time of the procedure; X58.XXXD Exposure to other specified factors, subsequent encounter | CPT/HCPCS: G0277; G0463; 99183; 99214 ==

== ENCOUNTER 2020-09-30 12:37 | Outpatient (CLI) | payer MEDICARE | END 2020-09-30 12:38 | disposition home or self-care (01) | LOC: WOUND 12:37 | PROVIDERS: ATTEND Surgery | DX: T81.89XD Other complications of procedures, not elsewhere classified, subsequent encounter (principal); S31.30XD Unspecified open wound of scrotum and testes, subsequent encounter; L08.1 Erythrasma; I48.91 Unspecified atrial fibrillation; C61 Malignant neoplasm of prostate; E78.5 Hyperlipidemia, unspecified; G25.81 Restless legs syndrome; Z86.73 Personal history of transient ischemic attack (TIA), and cerebral infarction without residual deficits; Z95.0 Presence of cardiac pacemaker; Z96.0 Presence of urogenital implants; Z79.82 Long term (current) use of aspirin; Y83.8 Other surgical procedures as the cause of abnormal reaction of the patient, or of later complication, without mention of misadventure at the time of the procedure; X58.XXXD Exposure to other specified factors, subsequent encounter | CPT/HCPCS: 99183; G0277 ==

== ENCOUNTER 2020-10-13 08:04 | Outpatient (CLI) | payer MEDICARE | END 2020-10-13 08:05 | disposition home or self-care (01) | LOC: WOUND 08:04 | PROVIDERS: ATTEND Surgery | DX: N49.2 Inflammatory disorders of scrotum (principal); T81.89XD Other complications of procedures, not elsewhere classified, subsequent encounter; S31.30XD Unspecified open wound of scrotum and testes, subsequent encounter; L08.1 Erythrasma; I48.91 Unspecified atrial fibrillation; C61 Malignant neoplasm of prostate; E78.5 Hyperlipidemia, unspecified; G25.81 Restless legs syndrome; Z86.73 Personal history of transient ischemic attack (TIA), and cerebral infarction without residual deficits; Z95.0 Presence of cardiac pacemaker; Z96.0 Presence of urogenital implants; Z79.82 Long term (current) use of aspirin; X58.XXXD Exposure to other specified factors, subsequent encounter; Y83.8 Other surgical procedures as the cause of abnormal reaction of the patient, or of later complication, without mention of misadventure at the time of the procedure | CPT/HCPCS: 17250; G0463; 99215 ==

== ENCOUNTER 2020-10-19 13:31 | Outpatient (CLI) | payer MEDICARE ==
--- NOTE | 2020-10-19 14:34 | XRay Report ---
CHEST 2 VIEWS INDICATION: FOR SURGERY CLEARANCE. COMPARISON: August 03, 2020 FINDINGS: Support devices: Pace device left hemithorax electrode tip right atrium and right ventricle Heart: Mild cardiac enlargement. Lungs: No acute air space or interstitial disease. Pleura: No significant pleural effusion. No pneumothorax. Additional findings: None. IMPRESSION: 1. No acute findings. Signer Name: Jono Aburto MD Signed: 10/19/2020 2:30 PM Workstation Name: [id number]
== END 2020-10-19 13:32 | disposition home or self-care (01) ==
LOC: VAS 13:31
PROVIDERS: ATTEND Surgery
DX: S31.30XA Unspecified open wound of scrotum and testes, initial encounter (principal); J94.2 Hemothorax; X58.XXXA Exposure to other specified factors, initial encounter; Y93.89 Activity, other specified; Y92.89 Other specified places as the place of occurrence of the external cause; Y99.8 Other external cause status
CPT/HCPCS: 71046

== ENCOUNTER 2020-11-03 08:24 | Outpatient (CLI) | payer MEDICARE | END 2020-11-03 08:25 | disposition home or self-care (01) | LOC: WOUND 08:24 | PROVIDERS: ATTEND Surgery | DX: T81.89XD Other complications of procedures, not elsewhere classified, subsequent encounter (principal); N49.2 Inflammatory disorders of scrotum; S31.30XD Unspecified open wound of scrotum and testes, subsequent encounter; L08.1 Erythrasma; I48.91 Unspecified atrial fibrillation; C61 Malignant neoplasm of prostate; E78.5 Hyperlipidemia, unspecified; G25.81 Restless legs syndrome; Z86.73 Personal history of transient ischemic attack (TIA), and cerebral infarction without residual deficits; Z95.0 Presence of cardiac pacemaker; Z96.0 Presence of urogenital implants; Z79.82 Long term (current) use of aspirin; X58.XXXD Exposure to other specified factors, subsequent encounter; Y83.8 Other surgical procedures as the cause of abnormal reaction of the patient, or of later complication, without mention of misadventure at the time of the procedure | CPT/HCPCS: 99214; G0463 ==

== ENCOUNTER 2020-11-08 10:14 | Outpatient (CLI) | payer MEDICARE ==
--- NOTE | 2020-11-08 11:44 | Vascular Lab Report ---
"VL carotid duplex BILAT INDICATION / CLINICAL INFORMATION: HISTORY OF CVA COMPARISON: 09/26/2015. FINDINGS: RIGHT CAROTID: Scattered calcified and noncalcified plaques most predominantly at the carotid bulb de monstrate no significant intimal irregularity. - PLAQUE ESTIMATE (%): < 50% - CCA velocity: 110 cm/sec. - ICA peak systolic velocity: 92.5 cm/sec. - ICA/CCA PSV Ratio: 0.84 Right Vertebral Artery: Antegrade flow. LEFT CAROTID: Scattered noncalcified and calcified plaques most predominant at the carotid bulb demon strate no significant intimal irregularity. - PLAQUE ESTIMATE: < 50% - CCA velocity: 76.4 cm/sec. - ICA peak systolic velocity: 79 cm/sec. - ICA/CCA PSV Ratio: 1.03 Left Vertebral Artery: Antegrade flow. IMPRESSION: 1. No occlusion or hemodynamically significant stenosis of the bilateral carotid arteries. Velocity criteria are extrapolated from diameter data as defined by the Society of Radiologists in [facility] Consensus Conference, Radiology 2003; 229;340-346. Degree of || ICA PSV || Plaque || ICA/CCA Stenosis (%) || (cm/sec) || estimate (%) || PSV Ratio - Normal...............<125..............None.................<2.0 - <50....................<125..............<50....................<2.0 - 50-69................125-230.........>50....................2.0-4.0 - >70 but <100....>230..............>50....................>4.0 - Near...................High, low, .....visible................variable occlusion or none - Total...................None.............visible;................N/A occlusion no lumen Signer Name: Matti Graves MD Signed: 11/08/2020 11:40 AM Workstation Name: [id number]"
== END 2020-11-08 10:15 | disposition home or self-care (01) ==
LOC: VAS 10:14
PROVIDERS: ATTEND Surgery
DX: S31.30XA Unspecified open wound of scrotum and testes, initial encounter (principal); C61 Malignant neoplasm of prostate; L08.1 Erythrasma; X58.XXXA Exposure to other specified factors, initial encounter; Y93.89 Activity, other specified; Y92.89 Other specified places as the place of occurrence of the external cause; Y99.8 Other external cause status
CPT/HCPCS: 93880

== ENCOUNTER 2020-11-17 14:00 | Outpatient (CLI) | payer MEDICARE | END 2020-11-17 14:01 | disposition home or self-care (01) | LOC: WOUND 14:00 | PROVIDERS: ATTEND Surgery | DX: T81.89XD Other complications of procedures, not elsewhere classified, subsequent encounter (principal); N49.2 Inflammatory disorders of scrotum; S31.30XD Unspecified open wound of scrotum and testes, subsequent encounter; L08.1 Erythrasma; I48.91 Unspecified atrial fibrillation; C61 Malignant neoplasm of prostate; E78.5 Hyperlipidemia, unspecified; G25.81 Restless legs syndrome; Z86.73 Personal history of transient ischemic attack (TIA), and cerebral infarction without residual deficits; Z95.0 Presence of cardiac pacemaker; Z96.0 Presence of urogenital implants; Z79.82 Long term (current) use of aspirin; X58.XXXD Exposure to other specified factors, subsequent encounter; Y83.8 Other surgical procedures as the cause of abnormal reaction of the patient, or of later complication, without mention of misadventure at the time of the procedure | CPT/HCPCS: 99214; G0463 ==

== ENCOUNTER 2020-12-08 09:00 | Day surgery (SDC) | payer MEDICARE ==
[2020-12-06 10:17] LABS: Mean Corpuscular HGB Conc 33 % (32-34); Mean Corpuscular Volume 84 fl (84-94); Platelet Count 279 K/mm3 (140-440); Red Blood Count 4.27 M/mm3 (3.65-5.03); Red Cell Distribution Width 14.7 % (13.2-15.2)
[2020-12-06 10:33] LABS: BUN/Creatinine Ratio 23; Blood Urea Nitrogen 21 mg/dL (9-20); Hemolysis Index 0
--- NOTE | 2020-12-06 12:05 | Anesthesia Consultation ---
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, mod TR) Hx Heart Murmur: No Hx Peripheral Vascular Disease: No - Central Nervous System Hx Neuromuscular Disorder: No Hx Seizures: No CVA: Yes (2014- NO DEFICIT) Hx Back Pain: Yes (S/P LL) Hx Psychiatric Problems: No - Gastrointestinal Hx Ulcer: No Hx Gastroesophageal Reflux Disease: No - Endocrine Hx Renal Disease: No (SP catheter) Hx End Stage Renal Disease: No Hx Cirrhosis: No Hx Liver Disease: No Hx Non-Insulin Dependent Diabetes: No Hx Hypothyroidism: No Hx Hyperthyroidism: No - Hematic Hx Anemia: Yes Hx Sickle Cell Disease: No - Other Systems Hx Alcohol Use: No Hx Substance Use: No Hx Cancer: Yes (Prostate) Hx Obesity: No - Additional Comments Anesthesia Medical History Comments: Cardiac records pending. He just saw his street sprinkler
[2020-12-09] MEDS ORDERED: LACTATED RINGERS 1,000 ML IV SCH (06:00)
--- NOTE | 2020-12-09 09:28 | Anesthesia Day of Surgery ---
Anesthesia Day of Surgery - Day of Surgery Patient Examined: Yes Patient H&P Reviewed: Yes Patient is NPO: Yes Beta Blockers: Yes
[2020-12-09] MEDS ORDERED: ceFAZolin/STERILE WATER 2 GM/20 ML SYRINGE IV NR (12:00)
[2020-12-09] MEDS ORDERED: HEPARIN 5,000 UNIT/1 ML VIAL SUB-Q NR (12:15)
[2020-12-09] MEDS ORDERED: propofoL 200 MG/20 ML VIAL IV ONE (12:19)
[2020-12-09] MEDS ORDERED: LIDOCAINE MPF (2%) 20 MG/1 ML VIAL 5 ML ONE (12:20)
[2020-12-09] MEDS ORDERED: fentaNYL 100 MCG/2 ML INJ ONE (12:20)
[2020-12-09] MEDS ORDERED: SODIUM CHLORIDE 0.9% IRR 1,500 ML BOTTLE IR ONE (13:00)
[2020-12-09] MEDS ORDERED: BUPIVACAINE-EPINEPHRINE/PF 0.25%-1:200,000 (30 ML) VIAL INFILTRATI ONE ×2 (13:20)
[2020-12-09] MEDS ORDERED: ONDANSETRON 4 MG/2 ML INJ ONE (14:12)
--- NOTE | 2020-12-09 14:26 | Procedure Note ---
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 Ramos 2) Removal of infected prosthetic urinary sphincter catheter and balloon by Dr. Bosch. Description of procedure: Anesthesia: other (LMA) Surgeon: RIKY RAMOS Energy And Conservation Technician: JYOTHI BOSCH Estimated blood loss: minimal Pathology: list (scar tissue) Specimen disposition: to lab Condition: stable Disposition: PACU
--- NOTE | 2020-12-09 14:55 | Operative Report ---
PREOPERATIVE DIAGNOSES: Retained foreign body, artificial urinary sphincter reservoir. POSTOPERATIVE DIAGNOSES: Retained foreign body, artificial urinary sphincter reservoir. PROCEDURE: Removal of artificial urinary sphincter reservoir. SURGEON: Dr. Bosch and Dr. Ramos. ANESTHESIA: General. FINDINGS: This is a gentleman who had a scrotal abscess. He has retained tubing and the reservoir. He now presents for treatment. DESCRIPTION OF PROCEDURE: The patient was brought to the operating room and placed on the operating table. Following induction of anesthesia, placed in supine position. He already had his scrotum drained and the tubing is exposed. He was prepped and draped in usual sterile fashion. An incision was made over the inguinal area and we tracked the tubing down from the scrotum into the inguinal area. It was very, very deep into the pelvis. We could not do it from below. We dissected along the tubing eventually all the way deep into the pelvis behind the bone and opened it up enough to get the reservoir out and intact. The patient tolerated the procedure well. There was no fluid in it and incision was closed by Dr. Ramos. No significant bleeding, brought to recovery room in stable condition with a drain. JOB# [id number] AVANI/TINO
--- NOTE | 2020-12-09 14:56 | Post Anesthesia Evaluation ---
- Post Anesthesia Evaluation Patient Participated: Yes Airway Patent: Yes Stable Respiratory Function: Yes Nausea/Vomiting: No Temp > 96.8F: Yes Pain Manageable: Yes Adequeate Hydration: Yes Anesthesia Complications: No Block Receding Appropriately: Not Applicable Patient on Ventilator: No
[2020-12-09] MEDS ORDERED: oxyCODONE /ACETAMINOPHEN 5-325MG TAB PO PRN (15:08)
[2020-12-09 15:29] VITALS: BP 149/76
== END 2020-12-09 17:00 | disposition home or self-care (01) ==
LOC: OR 09:00
PROVIDERS: ATTEND Surgery
DX: T83.191A Other mechanical complication of implanted urinary sphincter, initial encounter (principal); I48.91 Unspecified atrial fibrillation; I10 Essential (primary) hypertension; I42.9 Cardiomyopathy, unspecified; I25.10 Atherosclerotic heart disease of native coronary artery without angina pectoris; E78.00 Pure hypercholesterolemia, unspecified; M19.90 Unspecified osteoarthritis, unspecified site; Z91.81 History of falling; Z18.89 Other specified retained foreign body fragments; Z20.828 Contact with and (suspected) exposure to other viral communicable diseases; Z79.899 Other long term (current) drug therapy; Z79.82 Long term (current) use of aspirin; Z87.891 Personal history of nicotine dependence; Z79.01 Long term (current) use of anticoagulants; Z98.890 Other specified postprocedural states; Z98.41 Cataract extraction status, right eye; Z98.42 Cataract extraction status, left eye; Z85.46 Personal history of malignant neoplasm of prostate; Z82.49 Family history of ischemic heart disease and other diseases of the circulatory system; Z86.73 Personal history of transient ischemic attack (TIA), and cerebral infarction without residual deficits; Y82.8 Other medical devices associated with adverse incidents; Y92.89 Other specified places as the place of occurrence of the external cause
CPT/HCPCS: 36415; 53446; 80048; 85027; 88300; 88305; J0690; J1644; J2405; J2704; J3010; J7120; U0003

== ENCOUNTER 2020-12-10 10:00 | Outpatient (CLI) | payer MEDICARE | END 2020-12-10 10:01 | disposition home or self-care (01) | LOC: WOUND 10:00 | PROVIDERS: ATTEND Surgery | DX: T81.89XD Other complications of procedures, not elsewhere classified, subsequent encounter (principal); N49.2 Inflammatory disorders of scrotum; S31.30XD Unspecified open wound of scrotum and testes, subsequent encounter; L08.1 Erythrasma; I48.91 Unspecified atrial fibrillation; I10 Essential (primary) hypertension; C61 Malignant neoplasm of prostate; E78.5 Hyperlipidemia, unspecified; G25.81 Restless legs syndrome; Z86.73 Personal history of transient ischemic attack (TIA), and cerebral infarction without residual deficits; Z95.0 Presence of cardiac pacemaker; Z96.0 Presence of urogenital implants; Z79.82 Long term (current) use of aspirin; X58.XXXD Exposure to other specified factors, subsequent encounter; Y83.8 Other surgical procedures as the cause of abnormal reaction of the patient, or of later complication, without mention of misadventure at the time of the procedure | CPT/HCPCS: 99213; G0463 ==

== ENCOUNTER 2020-12-15 08:32 | Outpatient (CLI) | payer MEDICARE ==
[2020-12-15] MEDS ORDERED: LIDOCAINE (4%) 40 MG/ML TOPICAL SOLN 50 ML BOTTLE TP ONE (08:39)
[2020-12-15] MEDS ORDERED: SODIUM HYPOCHLORITE, DAKIN'S FULL STRENGTH (0.5%) 473 ML TOPICAL SOLN TP ONE (09:56)
== END 2020-12-15 08:33 | disposition home or self-care (01) ==
LOC: WOUND 08:32
PROVIDERS: ATTEND Surgery
DX: T81.89XD Other complications of procedures, not elsewhere classified, subsequent encounter (principal); N49.2 Inflammatory disorders of scrotum; S31.30XD Unspecified open wound of scrotum and testes, subsequent encounter; L08.1 Erythrasma; I48.91 Unspecified atrial fibrillation; I10 Essential (primary) hypertension; C61 Malignant neoplasm of prostate; E78.5 Hyperlipidemia, unspecified; G25.81 Restless legs syndrome; Z86.73 Personal history of transient ischemic attack (TIA), and cerebral infarction without residual deficits; Z95.0 Presence of cardiac pacemaker; Z96.0 Presence of urogenital implants; Z79.82 Long term (current) use of aspirin; X58.XXXD Exposure to other specified factors, subsequent encounter; Y83.8 Other surgical procedures as the cause of abnormal reaction of the patient, or of later complication, without mention of misadventure at the time of the procedure
CPT/HCPCS: 99215; G0463

== ENCOUNTER 2020-12-22 08:23 | Outpatient (CLI) | payer MEDICARE ==
[2020-12-22] MEDS ORDERED: LIDOCAINE (4%) 40 MG/ML TOPICAL SOLN 50 ML BOTTLE TP ONE (08:33)
== END 2020-12-22 08:24 | disposition home or self-care (01) ==
LOC: WOUND 08:23
PROVIDERS: ATTEND Surgery
DX: T81.89XD Other complications of procedures, not elsewhere classified, subsequent encounter (principal); N49.2 Inflammatory disorders of scrotum; S31.30XD Unspecified open wound of scrotum and testes, subsequent encounter; I10 Essential (primary) hypertension; C61 Malignant neoplasm of prostate; E78.5 Hyperlipidemia, unspecified; G25.81 Restless legs syndrome; Z86.73 Personal history of transient ischemic attack (TIA), and cerebral infarction without residual deficits; Z96.0 Presence of urogenital implants; Z95.0 Presence of cardiac pacemaker; Z79.82 Long term (current) use of aspirin; X58.XXXD Exposure to other specified factors, subsequent encounter; Y83.8 Other surgical procedures as the cause of abnormal reaction of the patient, or of later complication, without mention of misadventure at the time of the procedure

== ENCOUNTER 2020-12-28 08:36 | Outpatient (CLI) | payer MEDICARE ==
[2020-12-28] MEDS ORDERED: LIDOCAINE (4%) 40 MG/ML TOPICAL SOLN 50 ML BOTTLE TP ONE (08:37)
== END 2020-12-28 08:37 | disposition home or self-care (01) ==
LOC: WOUND 08:36
PROVIDERS: ATTEND Surgery
DX: T81.89XD Other complications of procedures, not elsewhere classified, subsequent encounter (principal); N49.2 Inflammatory disorders of scrotum; S31.30XD Unspecified open wound of scrotum and testes, subsequent encounter; I10 Essential (primary) hypertension; C61 Malignant neoplasm of prostate; E78.5 Hyperlipidemia, unspecified; G25.81 Restless legs syndrome; Z86.73 Personal history of transient ischemic attack (TIA), and cerebral infarction without residual deficits; Z96.0 Presence of urogenital implants; Z95.0 Presence of cardiac pacemaker; Z79.82 Long term (current) use of aspirin; X58.XXXD Exposure to other specified factors, subsequent encounter; Y83.8 Other surgical procedures as the cause of abnormal reaction of the patient, or of later complication, without mention of misadventure at the time of the procedure

== ENCOUNTER 2021-01-05 10:02 | Outpatient (CLI) | payer MEDICARE ==
[2021-01-05] MEDS ORDERED: LIDOCAINE (4%) 40 MG/ML TOPICAL SOLN 50 ML BOTTLE TP SCH (10:30)
== END 2021-01-05 10:03 | disposition home or self-care (01) ==
LOC: WOUND 10:02
PROVIDERS: ATTEND Surgery
DX: T81.89XD Other complications of procedures, not elsewhere classified, subsequent encounter (principal); N49.2 Inflammatory disorders of scrotum; S31.30XD Unspecified open wound of scrotum and testes, subsequent encounter; I10 Essential (primary) hypertension; C61 Malignant neoplasm of prostate; E78.5 Hyperlipidemia, unspecified; G25.81 Restless legs syndrome; Z86.73 Personal history of transient ischemic attack (TIA), and cerebral infarction without residual deficits; Z96.0 Presence of urogenital implants; Z95.0 Presence of cardiac pacemaker; Z79.82 Long term (current) use of aspirin; X58.XXXD Exposure to other specified factors, subsequent encounter; Y83.8 Other surgical procedures as the cause of abnormal reaction of the patient, or of later complication, without mention of misadventure at the time of the procedure

== ENCOUNTER 2021-01-19 09:32 | Outpatient (CLI) | payer MEDICARE ==
[2021-01-19] MEDS ORDERED: LIDOCAINE (4%) 40 MG/ML TOPICAL SOLN 50 ML BOTTLE TP ONE (09:36)
== END 2021-01-19 09:33 | disposition home or self-care (01) ==
LOC: WOUND 09:32
PROVIDERS: ATTEND Surgery
DX: T81.89XD Other complications of procedures, not elsewhere classified, subsequent encounter (principal); N49.2 Inflammatory disorders of scrotum; S31.30XD Unspecified open wound of scrotum and testes, subsequent encounter; L08.1 Erythrasma; I10 Essential (primary) hypertension; I48.91 Unspecified atrial fibrillation; C61 Malignant neoplasm of prostate; E78.5 Hyperlipidemia, unspecified; G25.81 Restless legs syndrome; Z86.73 Personal history of transient ischemic attack (TIA), and cerebral infarction without residual deficits; Z96.0 Presence of urogenital implants; Z95.0 Presence of cardiac pacemaker; Z79.82 Long term (current) use of aspirin; X58.XXXD Exposure to other specified factors, subsequent encounter; Y83.8 Other surgical procedures as the cause of abnormal reaction of the patient, or of later complication, without mention of misadventure at the time of the procedure

== ENCOUNTER 2021-02-02 09:09 | Outpatient (CLI) | payer MEDICARE ==
[2021-02-02] MEDS ORDERED: LIDOCAINE (4%) 40 MG/ML TOPICAL SOLN 50 ML BOTTLE TP SCH (09:30)
== END 2021-02-02 09:10 | disposition home or self-care (01) ==
LOC: WOUND 09:09
PROVIDERS: ATTEND Surgery
DX: T81.89XD Other complications of procedures, not elsewhere classified, subsequent encounter (principal); N49.2 Inflammatory disorders of scrotum; S31.30XD Unspecified open wound of scrotum and testes, subsequent encounter; L08.1 Erythrasma; I10 Essential (primary) hypertension; I48.91 Unspecified atrial fibrillation; C61 Malignant neoplasm of prostate; E78.5 Hyperlipidemia, unspecified; G25.81 Restless legs syndrome; Z86.73 Personal history of transient ischemic attack (TIA), and cerebral infarction without residual deficits; Z96.0 Presence of urogenital implants; Z95.0 Presence of cardiac pacemaker; Z79.82 Long term (current) use of aspirin; X58.XXXD Exposure to other specified factors, subsequent encounter; Y83.8 Other surgical procedures as the cause of abnormal reaction of the patient, or of later complication, without mention of misadventure at the time of the procedure

== ENCOUNTER 2021-02-23 13:36 | Outpatient (CLI) | payer MEDICARE ==
[2021-02-23] MEDS ORDERED: LIDOCAINE (4%) 40 MG/ML TOPICAL SOLN 50 ML BOTTLE TP ONE (15:11)
[2021-02-23] MEDS ORDERED: SILVER NITRATE APPLICATOR 1 EA TP ONE (15:11)
== END 2021-02-23 13:37 | disposition home or self-care (01) ==
LOC: WOUND 13:36
PROVIDERS: ATTEND Surgery
DX: T81.89XD Other complications of procedures, not elsewhere classified, subsequent encounter (principal); N49.2 Inflammatory disorders of scrotum; S31.30XD Unspecified open wound of scrotum and testes, subsequent encounter; L08.1 Erythrasma; I10 Essential (primary) hypertension; I48.91 Unspecified atrial fibrillation; C61 Malignant neoplasm of prostate; E78.5 Hyperlipidemia, unspecified; G25.81 Restless legs syndrome; G89.29 Other chronic pain; Z86.73 Personal history of transient ischemic attack (TIA), and cerebral infarction without residual deficits; Z96.0 Presence of urogenital implants; Z95.0 Presence of cardiac pacemaker; Z79.82 Long term (current) use of aspirin; X58.XXXD Exposure to other specified factors, subsequent encounter; Y83.8 Other surgical procedures as the cause of abnormal reaction of the patient, or of later complication, without mention of misadventure at the time of the procedure
CPT/HCPCS: 17250

== ENCOUNTER 2021-06-21 14:07 | Outpatient (CLI) | payer MEDICARE | END 2021-06-21 14:08 | disposition home or self-care (01) | LOC: LAB 14:07 | PROVIDERS: ATTEND Urology | DX: N41.0 Acute prostatitis (principal); C61 Malignant neoplasm of prostate | CPT/HCPCS: 36415; 84153 ==

== ENCOUNTER 2021-08-24 10:12 | Outpatient (CLI) | payer MEDICARE ==
[2021-08-24] MEDS ORDERED: LIDOCAINE (4%) 40 MG/ML TOPICAL SOLN 50 ML BOTTLE TP ONE (10:24)
== END 2021-08-24 10:13 | disposition home or self-care (01) ==
LOC: WOUND 10:12
PROVIDERS: ATTEND Surgery
DX: N49.2 Inflammatory disorders of scrotum (principal); I10 Essential (primary) hypertension; I48.91 Unspecified atrial fibrillation; E78.5 Hyperlipidemia, unspecified; Z85.46 Personal history of malignant neoplasm of prostate; Z86.73 Personal history of transient ischemic attack (TIA), and cerebral infarction without residual deficits; Z95.0 Presence of cardiac pacemaker
CPT/HCPCS: 99215; G0463